=== PATIENT | male | born 1950 | race Caucasian/White ===

== ENCOUNTER → 2017-01-09 | Outpatient (CLI) | payer MEDICARE, BC, OTHER ==
[2017-01-09 14:38] LABS: MEAN CORPUSCULAR HEMOGLOBIN 26.9 pg (27.0-33.0); MEAN CORPUSCULAR HGB CONC 32.4 g/dl (32.0-36.5); MEAN CORPUSCULAR VOLUME 83.3 fl (80.0-96.0); RED CELL DISTRIBUTION WIDTH 14.7 % (11.5-14.5); WHITE BLOOD COUNT 6.2 K/mm3 (4.0-10.0)
[2017-01-09 14:40] LABS: ALBUMIN 3.7 GM/DL (3.2-5.2); ALBUMIN/GLOBULIN RATIO 1.06 (1.00-1.93); ALKALINE PHOSPHATASE 100 U/L (45-117); ALT/SGPT 20 U/L (12-78); ANION GAP 10 MEQ/L (8-16); AST/SGOT 26 U/L (15-37); BILIRUBIN,TOTAL 0.5 MG/DL (0.2-1.0); BLOOD UREA NITROGEN 10 MG/DL (7-18); CALCIUM LEVEL 7.5 MG/DL (8.8-10.2); CARBON DIOXIDE LEVEL 26 MEQ/L (21-32); CHLORIDE LEVEL 108 MEQ/L (98-107); CHOLESTEROL LEVEL 129 MG/DL (<200); CREATININE FOR GFR 0.84 MG/DL (0.70-1.30); GLOMERULAR FILTRATION RATE > 60.0 (>49); GLUCOSE, FASTING 102 MG/DL (80-110); POTASSIUM SERUM 3.5 MEQ/L (3.5-5.1); SODIUM LEVEL 144 MEQ/L (136-145); TOTAL PROTEIN 7.2 GM/DL (6.4-8.2); TRIGLYCERIDES LEVEL 122 MG/DL (<150)
== END ==
LOC: M WUC 08:58
PROVIDERS: ATTEND Physician Assistant
DX: I25.10 Atherosclerotic heart disease of native coronary artery without angina pectoris (principal); I10 Essential (primary) hypertension; E78.4 Other hyperlipidemia

== ENCOUNTER → 2017-01-25 | Outpatient (CLI) | payer MEDICARE, BC, OTHER ==
[2017-01-25 17:16] LABS: BASO # 0.1 K/mm3 (0.0-0.2); BASO % 0.8 % (0.0-1.0); EOS # 0.4 K/mm3 (0.0-0.50); EOS % 5.1 % (0.0-3.0); LARGE UNSTAINED CELL # 0.1 K/mm3 (0.0-0.4); LARGE UNSTAINED CELL % 1.4 % (0.0-4.0); LYMPH # 1.9 K/mm3 (1.5-4.5); LYMPH % 24.8 % (24.0-44.0); MEAN CORPUSCULAR HEMOGLOBIN 26.3 pg (27.0-33.0); MEAN CORPUSCULAR VOLUME 82.2 fl (80.0-96.0); MONO # 0.5 K/mm3 (0.0-0.8); NEUTROPHILS # 4.8 K/mm3 (1.8-7.7); NEUTROPHILS % 61.9 % (36.0-66.0); PLATELET COUNT, AUTOMATED 265 k/mm3 (150-450); RED CELL DISTRIBUTION WIDTH 14.4 % (11.5-14.5); WHITE BLOOD COUNT 7.8 K/mm3 (4.0-10.0)
[2017-01-25 17:40] LABS: PERCENT SATURATION 10.6 % (19.7-37.4)
== END ==
LOC: M WUC 14:27
PROVIDERS: ATTEND Physician Assistant
DX: D64.9 Anemia, unspecified (principal)

== ENCOUNTER → 2017-02-26 | Outpatient (CLI) | payer MEDICARE, BC, OTHER ==
[2017-02-26 13:47] LABS: MEAN CORPUSCULAR HEMOGLOBIN 27.6 pg (27.0-33.0); MEAN CORPUSCULAR HGB CONC 32.9 g/dl (32.0-36.5); MEAN CORPUSCULAR VOLUME 83.8 fl (80.0-96.0); RED CELL DISTRIBUTION WIDTH 16.7 % (11.5-14.5); WHITE BLOOD COUNT 6.6 K/mm3 (4.0-10.0)
[2017-02-26 13:51] LABS: PERCENT SATURATION 36.9 % (19.7-37.4)
== END ==
LOC: M WUC 09:59
PROVIDERS: ATTEND Physician Assistant
DX: D64.9 Anemia, unspecified (principal)

== ENCOUNTER → 2017-07-10 | Outpatient (CLI) | payer MEDICARE, BC, OTHER ==
[2017-07-10 12:12] LABS: MEAN CORPUSCULAR HEMOGLOBIN 30.6 pg (27.0-33.0); MEAN CORPUSCULAR HGB CONC 34.8 g/dl (32.0-36.5); WHITE BLOOD COUNT 7.2 K/mm3 (4.0-10.0)
[2017-07-10 12:18] LABS: ALBUMIN 3.5 GM/DL (3.2-5.2); ALKALINE PHOSPHATASE 97 U/L (45-117); ALT/SGPT 27 U/L (12-78); ANION GAP 10 MEQ/L (8-16); AST/SGOT 20 U/L (15-37); BILIRUBIN,TOTAL 0.5 MG/DL (0.2-1.0); BLOOD UREA NITROGEN 9 MG/DL (7-18); CALCIUM LEVEL 9.2 MG/DL (8.8-10.2); CARBON DIOXIDE LEVEL 25 MEQ/L (21-32); CHLORIDE LEVEL 103 MEQ/L (98-107); CHOLESTEROL LEVEL 163 MG/DL (<200); CREATININE FOR GFR 0.71 MG/DL (0.70-1.30); GLOMERULAR FILTRATION RATE > 60.0 (>49); GLUCOSE, FASTING 102 MG/DL (80-110); POTASSIUM SERUM 4.1 MEQ/L (3.5-5.1); SODIUM LEVEL 138 MEQ/L (136-145); TOTAL PROTEIN 7.4 GM/DL (6.4-8.2); TRIGLYCERIDES LEVEL 186 MG/DL (<150)
== END ==
LOC: M WUC 08:51
PROVIDERS: ATTEND Physician Assistant
DX: I25.10 Atherosclerotic heart disease of native coronary artery without angina pectoris (principal); I10 Essential (primary) hypertension; E78.4 Other hyperlipidemia

== ENCOUNTER → 2017-07-26 | Outpatient (CLI) | payer MEDICARE, BC, OTHER ==
--- NOTE | 2017-07-26 12:53 | REP ---
CAROTID ULTRASOUND: Real-time ultrasound evaluation and duplex Doppler interrogation of the extracranial carotid vasculature is performed. There is mild to moderate plaquing and narrowing in both carotid bulbs extending into the internal and external carotid arteries. Luminal narrowing is less than 50%. There is no evidence of hemodynamically significant stenosis of either internal carotid artery. Normal flow velocities are seen. The vertebral arteries demonstrate normal direction of flow. RIGHT LEFT Peak systolic velocity ICA 50 cm/s 55.5 cm/s End diastolic velocity ICA 16 cm/s 18 cm/s Peak systolic velocity CCA 77 cm/s 58.2 cm/s Peak systolic velocity ECA 104 cm/s 88.6 cm/s ICA/CCA ratio 0.65 0.95 IMPRESSION: Bilateral luminal narrowing of the internal carotid arteries less than 50%. No evidence of hemodynamically significant stenosis. Signed by Espinoza Tompkins MD 07/26/2017 12:45 P
== END ==
LOC: M RAD 09:40
PROVIDERS: ATTEND Physician Assistant
DX: R09.89 Other specified symptoms and signs involving the circulatory and respiratory systems (principal)

== ENCOUNTER → 2017-08-18 | Outpatient (CLI) | payer MEDICARE, BC, OTHER ==
[2017-08-18 13:15] LABS: ALBUMIN 3.8 GM/DL (3.2-5.2); ANION GAP 10 MEQ/L (8-16); BLOOD UREA NITROGEN 17 MG/DL (7-18); CALCIUM LEVEL 8.7 MG/DL (8.8-10.2); CARBON DIOXIDE LEVEL 25 MEQ/L (21-32); CHLORIDE LEVEL 94 MEQ/L (98-107); CREATININE FOR GFR 1.05 MG/DL (0.70-1.30); GLOMERULAR FILTRATION RATE > 60.0 (>49); GLUCOSE, FASTING 118 MG/DL (80-110); PHOSPHORUS LEVEL 3.3 MG/DL (2.5-4.9); POTASSIUM SERUM 4.2 MEQ/L (3.5-5.1); SODIUM LEVEL 129 MEQ/L (136-145)
== END ==
LOC: M WUC 10:09
PROVIDERS: ATTEND Physician Assistant
DX: I10 Essential (primary) hypertension (principal)

== ENCOUNTER → 2018-02-18 | Outpatient (CLI) | payer MEDICARE, BC, OTHER ==
[2018-02-18 12:16] LABS: ALBUMIN 4.1 GM/DL (3.2-5.2); ALBUMIN/GLOBULIN RATIO 0.95 (1.00-1.93); ALKALINE PHOSPHATASE 105 U/L (45-117); ALT/SGPT 27 U/L (12-78); ANION GAP 8 MEQ/L (8-16); AST/SGOT 27 U/L (7-37); BILIRUBIN,TOTAL 0.6 MG/DL (0.2-1.0); BLOOD UREA NITROGEN 12 MG/DL (7-18); CALCIUM LEVEL 9.3 MG/DL (8.8-10.2); CARBON DIOXIDE LEVEL 29 MEQ/L (21-32); CHLORIDE LEVEL 100 MEQ/L (98-107); CREATININE FOR GFR 0.98 MG/DL (0.70-1.30); GLOMERULAR FILTRATION RATE > 60.0 (>49); GLUCOSE, FASTING 96 MG/DL (70-100); POTASSIUM SERUM 3.9 MEQ/L (3.5-5.1); SODIUM LEVEL 137 MEQ/L (136-145); TOTAL PROTEIN 8.4 GM/DL (6.4-8.2)
== END ==
LOC: M WUC 09:37
DX: I10 Essential (primary) hypertension (principal)
CPT/HCPCS: 80053

== ENCOUNTER → 2018-03-09 | Outpatient (CLI) | payer MEDICARE, BC, OTHER ==
[2018-03-09 15:07] LABS: BASO # 0.1 10^3/uL (0.0-0.2); EOS # 0.2 10^3/uL (0.0-0.50); EOS % 3.4 % (0.0-3.0); HEMATOCRIT 39.7 % (42.0-52.0); HEMOGLOBIN 13.7 g/dl (13.5-17.5); IMMATURE GRANULOCYTE % 0.3 % (0-3.0); LYMPH # 1.6 10^3/uL (1.5-4.5); MEAN CORPUSCULAR HEMOGLOBIN 30.3 pg (27.0-33.0); MEAN CORPUSCULAR HGB CONC 34.5 g/dl (32.0-36.5); MEAN CORPUSCULAR VOLUME 87.8 fl (80.0-96.0); MONO # 0.6 10^3/uL (0.0-0.8); NEUTROPHILS # 4.5 10^3/uL (1.8-7.7); NEUTROPHILS % 64.3 % (36.0-66.0); PLATELET COUNT, AUTOMATED 234 10^3/uL (150-450); RED BLOOD COUNT 4.52 10^6/uL (4.30-6.10); RED CELL DISTRIBUTION WIDTH 12.5 % (11.5-14.5)
[2018-03-09 15:16] LABS: ANION GAP 11 MEQ/L (8-16); BLOOD UREA NITROGEN 12 MG/DL (7-18); CALCIUM LEVEL 8.1 MG/DL (8.8-10.2); CARBON DIOXIDE LEVEL 23 MEQ/L (21-32); CHLORIDE LEVEL 101 MEQ/L (98-107); CREATININE FOR GFR 1.03 MG/DL (0.70-1.30); GLOMERULAR FILTRATION RATE > 60.0 (>49); GLUCOSE, FASTING 158 MG/DL (70-100); SODIUM LEVEL 135 MEQ/L (136-145)
== END ==
LOC: M WUC 13:37
DX: I25.10 Atherosclerotic heart disease of native coronary artery without angina pectoris (principal)
CPT/HCPCS: 80048

== ENCOUNTER → 2018-08-30 | Outpatient (CLI) | payer MEDICARE, BC, OTHER ==
[2018-08-30 13:02] LABS: ALBUMIN 3.8 GM/DL (3.2-5.2); ALBUMIN/GLOBULIN RATIO 1.03 (1.00-1.93); ALKALINE PHOSPHATASE 108 U/L (45-117); ALT/SGPT 23 U/L (12-78); ANION GAP 11 MEQ/L (8-16); AST/SGOT 21 U/L (7-37); BILIRUBIN,TOTAL 0.5 MG/DL (0.2-1.0); BLOOD UREA NITROGEN 13 MG/DL (7-18); CALCIUM LEVEL 8.4 MG/DL (8.8-10.2); CARBON DIOXIDE LEVEL 26 MEQ/L (21-32); CHLORIDE LEVEL 101 MEQ/L (98-107); CHOLESTEROL LEVEL 168 MG/DL (<200); CREATININE FOR GFR 1.05 MG/DL (0.70-1.30); GLOMERULAR FILTRATION RATE > 60.0 (>42); GLUCOSE, FASTING 100 MG/DL (70-100); HDL CHOLESTEROL 32 MG/DL (>40); LDL CHOLESTEROL 92 MG/DL (<100); NON-HDL-C 136 MG/DL; POTASSIUM SERUM 4.1 MEQ/L (3.5-5.1); SODIUM LEVEL 138 MEQ/L (136-145); TOTAL PROTEIN 7.5 GM/DL (6.4-8.2); TRIGLYCERIDES LEVEL 220 MG/DL (<150)
== END ==
LOC: M WUC 08:22
DX: I25.10 Atherosclerotic heart disease of native coronary artery without angina pectoris (principal); I10 Essential (primary) hypertension; E78.2 Mixed hyperlipidemia
CPT/HCPCS: 80053

== ENCOUNTER → 2019-03-03 | Outpatient (CLI) | payer MEDICARE, BC, OTHER ==
[2019-03-03 09:49] LABS: ALBUMIN 3.6 GM/DL (3.2-5.2); ALT/SGPT 24 U/L (12-78); BILIRUBIN,TOTAL 0.6 MG/DL (0.2-1.0); BLOOD UREA NITROGEN 12 MG/DL (7-18); CALCIUM LEVEL 6.4 MG/DL (8.8-10.2); CARBON DIOXIDE LEVEL 25 MEQ/L (21-32); CHLORIDE LEVEL 99 MEQ/L (98-107); CHOLESTEROL LEVEL 149 MG/DL (<200); CHOLESTEROL RISK RATIO 4.966 (<5); CREATININE FOR GFR 0.87 MG/DL (0.70-1.30); GLOMERULAR FILTRATION RATE > 60.0 (>42); GLUCOSE, FASTING 93 MG/DL (70-100); HDL CHOLESTEROL 30 MG/DL (>40); LDL CHOLESTEROL 93 MG/DL (<100); NON-HDL-C 119 MG/DL; POTASSIUM SERUM 3.4 MEQ/L (3.5-5.1); SODIUM LEVEL 136 MEQ/L (136-145); TOTAL PROTEIN 7.5 GM/DL (6.4-8.2); TRIGLYCERIDES LEVEL 128 MG/DL (<150)
== END ==
LOC: M WUC 08:09
PROVIDERS: ATTEND Physician Assistant
DX: I25.10 Atherosclerotic heart disease of native coronary artery without angina pectoris (principal); I10 Essential (primary) hypertension; E78.2 Mixed hyperlipidemia

== ENCOUNTER → 2019-08-29 | Outpatient (CLI) | payer MEDICARE, BC, OTHER ==
[2019-08-29 10:10] LABS: ALBUMIN 3.5 GM/DL (3.2-5.2); ALT/SGPT 21 U/L (12-78); BILIRUBIN,TOTAL 0.7 MG/DL (0.2-1.0); BLOOD UREA NITROGEN 12 MG/DL (7-18); CALCIUM LEVEL 7.5 MG/DL (8.8-10.2); CARBON DIOXIDE LEVEL 27 MEQ/L (21-32); CHLORIDE LEVEL 101 MEQ/L (98-107); CHOLESTEROL LEVEL 132 MG/DL (<200); CHOLESTEROL RISK RATIO 4.258 (<5); CREATININE FOR GFR 0.98 MG/DL (0.70-1.30); GLOMERULAR FILTRATION RATE > 60.0 (>42); GLUCOSE, FASTING 96 MG/DL (70-100); HDL CHOLESTEROL 31 MG/DL (>40); LDL CHOLESTEROL 78 MG/DL (<100); NON-HDL-C 101 MG/DL; POTASSIUM SERUM 3.4 MEQ/L (3.5-5.1); SODIUM LEVEL 137 MEQ/L (136-145); TOTAL PROTEIN 7.8 GM/DL (6.4-8.2); TRIGLYCERIDES LEVEL 114 MG/DL (<150)
== END ==
LOC: M WUC 08:17
PROVIDERS: ATTEND Physician Assistant
DX: E78.2 Mixed hyperlipidemia (principal)

== ENCOUNTER → 2019-09-18 | Outpatient (CLI) | payer MEDICARE, BC, OTHER ==
--- NOTE | 2019-09-18 11:07 | REP ---
CAROTID ULTRASOUND: Real-time ultrasound evaluation and duplex Doppler interrogation of the extracranial carotid vasculature is performed. There is mild to moderate plaquing and narrowing in both carotid bulbs extending into the internal and external carotid arteries. Luminal narrowing is less than 50%. There is no evidence of hemodynamically significant stenosis of either internal carotid artery. Normal flow velocities are seen. The left vertebral artery demonstrates normal direction of flow. The right vertebral artery demonstrates bidirectional flow. This may indicate some degree of subclavian steal on the right. RIGHT LEFT Peak systolic velocity ICA 69.9 cm/s 81.9 cm/s End diastolic velocity ICA 14.1 cm/s 28 cm/s Peak systolic velocity CCA 50.7 cm/s 54.2 cm/s Peak systolic velocity ECA 101 cm/s 97.9 cm/s ICA/CCA ratio 1.38 1.51 IMPRESSION: Bilateral luminal narrowing of the internal carotid arteries less than 50%. No evidence of hemodynamically significant stenosis. The right vertebral artery demonstrates bidirectional flow. This may indicate some degree of subclavian steal on the right. Electronically Signed by Espinoza Tompkins MD 09/18/2019 10:59 A
== END ==
LOC: M RAD 09:42
PROVIDERS: ATTEND Physician Assistant
DX: I65.23 Occlusion and stenosis of bilateral carotid arteries (principal)

== ENCOUNTER → 2019-10-11 | Outpatient (CLI) | payer MEDICARE, BC, OTHER ==
[2019-10-11 13:06] LABS: BLOOD UREA NITROGEN 17 MG/DL (7-18); CALCIUM LEVEL 8.3 MG/DL (8.8-10.2); CARBON DIOXIDE LEVEL 22 MEQ/L (21-32); CHLORIDE LEVEL 99 MEQ/L (98-107); CREATININE FOR GFR 1.13 MG/DL (0.70-1.30); GLOMERULAR FILTRATION RATE > 60.0 (>42); GLUCOSE, FASTING 111 MG/DL (70-100); POTASSIUM SERUM 4.9 MEQ/L (3.5-5.1); SODIUM LEVEL 133 MEQ/L (136-145)
== END ==
LOC: M WUC 08:47
PROVIDERS: ATTEND Physician Assistant
DX: I10 Essential (primary) hypertension (principal)

== ENCOUNTER → 2020-02-13 | Outpatient (CLI) | payer MEDICARE, BC, OTHER ==
--- NOTE | 2020-02-13 15:03 | REP ---
BILATERAL LOWER EXTREMITY DUPLEX DOPPLER ARTERIAL ULTRASOUND: Real-time ultrasound evaluation and duplex Doppler interrogation of bilateral lower extremity arterial systems is performed. Peak systolic velocity of the distal abdominal aorta is 37 cm/s. There is high grade stenosis at the origin of the right common iliac artery with peak systolic velocity 467 cm/s and monophasic waveform. Distal to that, there are tardus parvus waveforms throughout the right lower extremity arterial system with some what low velocities and diffuse monophasic waveforms. Severe calcific plaquing is seen of the right common femoral artery and proximal superficial femoral artery with velocity drop suggesting 3 to 1 stenosis at the proximal right superficial femoral artery. There are relatively normal flow velocities throughout the left lower extremity arterial system with diffuse biphasic waveforms. There is severe calcific plaque in the left common femoral and superficial femoral arteries. There appears to be mild stenosis of the profunda artery. Right Peak Left Peak Systolic Velocity Systolic velocity Common femoral artery 95 cm/s 107 cm/s Profunda 24 cm/s 133 cm/s Proximal SFA 33 cm/s 181 cm/s Mid SFA 50 cm/s 108 cm/s Distal SFA 32 cm/s 164 cm/s Popliteal 34 cm/s 50 cm/s Proximal SHONA 29 cm/s 74 cm/s Tibial peroneal trunk 35 cm/s 130 cm/s Proximal MOLDED PARTS INSPECTOR 26 cm/s 54 cm/s Distal MOLDED PARTS INSPECTOR 21 cm/s 69 cm/s Distal SHONA 30 cm/s 46 cm/s Electronically Signed by Espinoza Tompkins MD 02/13/2020 03:34 P
== END ==
LOC: M RAD 12:52
PROVIDERS: ATTEND Physician Assistant
DX: I25.10 Atherosclerotic heart disease of native coronary artery without angina pectoris (principal)

== ENCOUNTER → 2020-04-01 | Outpatient (CLI) | payer MEDICARE, BC, OTHER ==
[~2020-04-01] MED LIST: ACETAMINOPHEN 325 MG TAB As Ordered ONE; ASPI81TA26 PO; BISO10TA14 PO; CHLO25TA PO; CLOP75TA2 PO; ISOVUE-300 61% 50ML VIAL As Ordered ONE; LIDOCAINE 1% MDV 20ML VIAL As Ordered ONE; MIDAZOLAM INJ 2MG/2ML VIAL (J2250 PER 1MG) As Ordered ONE; OMEP1CAP73 PO; POTA1TAB14 PO; RAMI1CAP26 PO; fentaNYL 100 MCG/2 ML INJECTION (J3010) As Ordered ONE
[2020-04-01 07:40] LABS: BLOOD UREA NITROGEN 14 MG/DL (7-18); CALCIUM LEVEL 6.7 MG/DL (8.8-10.2); CARBON DIOXIDE LEVEL 27 MEQ/L (21-32); CHLORIDE LEVEL 100 MEQ/L (98-107); GLOMERULAR FILTRATION RATE > 60.0 (>42); GLUCOSE, FASTING 94 MG/DL (70-100); POTASSIUM SERUM 3.7 MEQ/L (3.5-5.1); SODIUM LEVEL 135 MEQ/L (136-145)
--- NOTE | 2020-04-01 09:55 | ROOPDOC ---
[facility] Report Of Operation Report of Operation DATE OF PROCEDURE: 04/01/20 PREPROCEDURE DIAGNOSES: Atherosclerosis in the [place] arteries with lifestyle limiting claudication of the hips buttocks and calf POSTPROCEDURE DIAGNOSES: Same PROCEDURE: 1. Ultrasound-guided access left common femoral artery 2. Crossing near total occlusion and left iliac artery 3. Aortoiliofemoral arteriogram 4. Ultrasound-guided access right common femoral artery 5. Crossing near total occlusion right iliac artery 6. Predilation bilateral common and external iliac arteries with 5 x 100 [place] balloon and 8 x 100 [place] balloon 7. Right lower extremity arteriogram and runoff 8. Kissing stents bilateral common iliac arteries 10 x 57 express balloon expandable stent 9. Extension right and left common iliac artery stents with 9 x 37 express balloon expandable stent into the external iliac arteries 10. Completion arteriograms 11. Mynx closure bilateral common femoral artery SURGEON: Mayela Doe MD ANESTHESIA: Local anesthesia 20 mL lidocaine. Moderate intravenous conscious sedation was supervised by Dr. Doe. The patient was independently monitored by a registered nurse assigned to the Department of radiology using automated blood pressure, EKG, and pulse oximetry. The detailed sedation record is permanently stored in the hospital information system. The following is the brief sedation record: Start time 07:38, stop time 08:58, Versed 2 mg IV, fentanyl 100 g IV, heparin 5000 units IV. INDICATION FOR PROCEDURE: This is a very pleasant 69-year-old gentleman with atherosclerosis in the [place] arteries with worsening lifestyle limiting claudication of the bilateral lower extremities, worse on the right lower extremity. He has severe short distance cramping pain in the hips and buttocks, as well as later in the calves. His recovery time is long. Risks benefits and alternatives to an arteriogram with potential intervention were explained to the patient. He is agreeable to proceed. Informed consent was obtained. The patient was extensively counseled in clinic in again today about smoking cessation. It is imperative that he quit smoking for long-term success of any revascularization we are able to provide. He has cut back, and continues to try to quit. INTERPRETATION: 1. The distal aorta is heavily calcified and ectatic. There is mild dilation of the aorta 2 cm proximal to the bifurcation, likely from heavy iliac stenosis and calcification. Beyond that dilation, the very distal aorta above the bifurcation has significant plaque, heavily calcified. It is patent however. 2. The right proximal common iliac artery is heavily calcified and nearly occluded. It is somewhat aneurysmal distal to this, also heavily calcified and stenotic, but patent. Near the origin of the hypogastric and progression into the external iliac artery, there is more heavy stenosis plaque and near occlusio n. There is also near occlusion in the proximal external iliac artery. Distal to this, there is calcification and ectasia, but the rest of the external iliac artery is patent. 3. The right common femoral arteries heavily calcified is noted on ultrasound du ring access. Additionally, this is visible on arteriogram, but the vessel is patent and the calcification is not thus far flow-limiting. There is good flow into the profunda and the SFA which is widely patent until the mid SFA were there is a focal 30% stenosis and calcification throughout. Distal to this, there is a little bit of ectasia at Saqib's canal, but is not yet flow-limi ting. The popliteal arteries also calcified but widely patent. There is good two-vessel runoff through the anterior tibial and posterior tibial artery to the foot. The peroneal artery bifurcates in the upper calf and then has limited flow below the mid calf. This appears to be more congenital than stenotic. 4. The left common iliac arteries heavily calcified and has intermittent st enoses from 20-70%. There is a near occlusion at the distal common iliac artery proximal near the origin of the external iliac artery and hypogastric, and some ectasia and stenosis in the proximal external iliac artery as well. The distal left external iliac arteries calcified but patent. 5. After predilation of the iliacs bilaterally with a 5 x 100 and 8 x 100 [place] balloon, there was sufficient luminal improvement to allow passage of balloon expandable stents through the near occlusions. No extravasation or dissections were noted. 6. After stenting the bilateral iliac arteries with 10 x 57 kissing stents proximally and extension with 9 x 37 balloon expandable stent, there was widely patent flow through both iliac systems and dramatic improvement in pulses at the common femoral arteries bilaterally. No extravasation embolization or dissections were noted. 7. The left Mynx closure device was deployed without complication with good hemostasis, but the right Mynx closure device initially failed due to rupture of the balloon due to calcified plaque. A second mynx was successfully deployed with additional maneuvering with good hemostasis. REPORT OF OPERATION: The patient was brought to the angiographic suite in stable condition. His bilateral groins were prepped and draped in a sterile fashion. A timeout was performed. Sedation was administered without complication. Local anesthesia was administered to skin and subcutaneous tissue over the left common femoral artery. A microneedle was used to access the artery under ultrasound guidance. A wire was passed through this access under fluoroscopic guidance. It did take a moment to find a suitable lace for access due to heavy calcification in the common femoral artery, however ultrasound was helpful to find a soft spot for access. The needle was removed and a 4 [place] micro-sheath was placed and flushed with saline. A Glidewire and omni flush catheter were advanced. The wire was difficult to navigate through the near occlusion in the iliac vessel. Eventually, we were able to cross the near occlusion and advance the Omni Flush catheter over the wire into the distal aorta. Aortoiliofemoral arteriograms were performed. Please interpretation above. We spent about 10 minutes trying to go up and over the bifurcation and find a way through the near occlusion on the right to perform an arteriogram through the right side, but we were unsuccessful. This was aborted. We exchange the 4 [place] sheath for 7 [place] sheath over the wire and flushed the sheath with saline. We then turned our attention to the right groin and local anesthesia was administered to the skin and subcutaneous tissue over the right common femoral artery. A microneedle was used to access the artery under ultrasound guidance. Again, we struggled to find a soft spot in the artery due to heavy calcification and plaque, but we were eventually able to isolate and area over the femoral head in the common femoral artery under ultrasound that we could access safely. A wire was passed through this access and it was difficult to navigate the microwire due to heavy calcified plaque. We then placed a 4 [place] sheath and flushed the sheath with saline. The sheath was then exchanged over the wire for 7 [place] sheath and flushed with saline. A Glidewire was advanced through this access into the iliac vessels, but it would not pass due to the heavy near occlusive plaque. We selected a short glide cath and with a Glidewire, we carefully began the arduous task of crossing through the right iliac system. Eventually, we were able to han igate into the true lumen at the distal aorta. Contrast injection confirmed we were not in a dissection plane and we were able to spin our catheter freely. We then removed the catheter and over both wires we laced 5 x 100 [place] balloon's. 5000 units of heparin was given and allowed to circulate. The balloons were inflated to predilate the vessels due to concern for dislodgment of the stents if we tried to place them without predilation. We then did a second predilation with a 5 mm balloons, and then exchanged then for 8 mm x 100 balloons. 2 dilations sequentially were performed with these balloons as well. Before stenting the iliac vessels, we did perform a right lower extremity runoff through the right femoral sheath. Please interpretation above. Because I plan to place kissing stents, I wanted to make sure we did not need to do any up and over intervention on the right lower extremity from the left access, but the SFA lesion was mild, and there is more than sufficient runoff. I believe fixing the inflow will dramatically improve flow for the patient. We therefore elected not to intervene on the right lower extremity mild SFA stenosis. Over the wires, we advanced 10 x 57 express balloon expandable stents. These were simultaneously deployed as kissing stents into the distal aorta. We then extended both stents with 9 x 37 express balloon expandable stents with a 1 cm overlap. We postd ilated across the overlap and then arteriograms were performed, and showed excellent flow through both iliac systems. No dissections embolizations or extravasation were noted. The patient had bounding pulses in both common femoral arteries. A Mynx closure device was deployed in the left common femoral artery with good hemostasis and pressure was held for 15 minutes, and sterile dressings were applied. On the right, the first Mynx deployed was unsuccessful due to calcified plaque rupturing the balloon. We then utilized a second Mynx, but I did not fully inflate the balloon until we were closer to the arteriotomy to avoid a similar fate. The balloon was then inflated closer to the arteriotomy and retracted in the normal fashion, and the sheath was carefully checked to make sure there was no flow once the balloon without the arteriotomy. We then finished applying the Mynx with good hemostasis and pressure was held for 15 minutes and sterile dressings were applied. The patient was then taken to recovery in stable condition with good hemostasis in both groins. The patient tolerated the procedure and the sedation well. ESTIMATED BLOOD LOSS: Approximately 5 mL. COMPLICATIONS: None. PLAN: We will see the patient back in a week to check his bilateral groin access sites and his perfusion. We will start the patient on Plavix and he will need to take this for 60 days post stenting. We will continue to encourage smoking cessation. No heavy lifting greater than 5 pounds or strenuous exercise for 48 hours. We will monitor the patient for hours postprocedure and then he will be discharged home. MAYELA DOE MD Apr 01, 2020 09:55
[2020-04-01 12:28] VITALS: BP 172/94
== END ==
LOC: M IRPRO 06:36
PROVIDERS: ATTEND Surgery Vascular Surgery
DX: I70.213 Atherosclerosis of native arteries of extremities with intermittent claudication, bilateral legs (principal); I70.92 Chronic total occlusion of artery of the extremities
CPT/HCPCS: 37221; 37223; 75630; 80048; 99152; 99153; C1725; C1760; C1769; C1887; C1894; J1644; J2250; J3010; Q9967

== ENCOUNTER 2020-04-06 05:27 | Emergency (ER) | payer MEDICARE, BC, OTHER ==
[~2020-04-06] VITALS: Ht 188 cm; Wt 87.3 kg
[2020-04-06 05:27] VITALS: BP 178/84
[~2020-04-06 05:27] MED LIST changes: -ACETAMINOPHEN 325 MG TAB As Ordered ONE; -ISOVUE-300 61% 50ML VIAL As Ordered ONE; -LIDOCAINE 1% MDV 20ML VIAL As Ordered ONE; -MIDAZOLAM INJ 2MG/2ML VIAL (J2250 PER 1MG) As Ordered ONE; -fentaNYL 100 MCG/2 ML INJECTION (J3010) As Ordered ONE
[2020-04-06] MEDS ORDERED: PRAV20TA2 (05:38)
== END 2020-04-06 06:30 | disposition home or self-care (01) ==
LOC: M ED 05:27
DX: I97.638 Postprocedural hematoma of a circulatory system organ or structure following other circulatory system procedure (principal); F17.200 Nicotine dependence, unspecified, uncomplicated; Z95.1 Presence of aortocoronary bypass graft; I10 Essential (primary) hypertension; Z79.02 Long term (current) use of antithrombotics/antiplatelets; Z79.899 Other long term (current) drug therapy; Z88.0 Allergy status to penicillin; Y83.8 Other surgical procedures as the cause of abnormal reaction of the patient, or of later complication, without mention of misadventure at the time of the procedure

== ENCOUNTER → 2020-04-07 | Outpatient (CLI) | payer MEDICARE, BC, OTHER ==
[~2020-04-07] MED LIST changes: +PRAV20TA2
[2020-04-07 18:08] LABS: BLOOD UREA NITROGEN 10 MG/DL (7-18); CALCIUM LEVEL 6.5 MG/DL (8.8-10.2); CARBON DIOXIDE LEVEL 26 MEQ/L (21-32); CHLORIDE LEVEL 97 MEQ/L (98-107); CREATININE FOR GFR 0.99 MG/DL (0.70-1.30); GLOMERULAR FILTRATION RATE > 60.0 (>42); GLUCOSE, FASTING 118 MG/DL (70-100); SODIUM LEVEL 136 MEQ/L (136-145)
== END ==
LOC: M WUC 08:49
PROVIDERS: ATTEND Physician Assistant
DX: I10 Essential (primary) hypertension (principal)

== ENCOUNTER → 2020-05-13 | Outpatient (CLI) | payer MEDICARE, BC, OTHER ==
--- NOTE | 2020-05-13 10:52 | REP ---
REASON: Bilateral iliac stents. The ankle brachial index on the right is 0.91. COPPER ETCHER 163-200 cm/s Triphasic Profunda 112 cm/s Triphasic SFA proximal 136 cm/s Biphasic SFA mid 82 cm/s Biphasic SFA distal 85 cm/s Biphasic Popliteal 87 cm/s Biphasic SHONA proximal 71 cm/s Biphasic Tibioperoneal Trunk 65 cm/s Biphasic EDUCATIONAL SPECIALIST proximal 80 cm/s Triphasic EDUCATIONAL SPECIALIST distal 79 cm/s Biphasic SHONA distal 79 cm/s Biphasic to triphasic. The ankle brachial index is 0.61. COPPER ETCHER 105 cm/s Biphasic Profunda 265-40 cm/s Biphasic SFA proximal 155 cm/s Biphasic SFA mid 95 cm/s Biphasic SFA distal 125-72 cm/s Biphasic Popliteal 44 cm/s Biphasic SHONA proximal 96 cm/s Biphasic Tibioperoneal Trunk 126 cm/s Biphasic EDUCATIONAL SPECIALIST proximal 32 cm/s Biphasic EDUCATIONAL SPECIALIST distal 12 cm/s Monophasic SHONA distal 74 cm/s Biphasic There is evidence of severe plaque formation in the common femoral artery on the right with a moderate stenosis. Plaque is seen throughout the superficial femoral artery without a significant stenosis. All waveforms appear to have improved on the right compared to the prior exam. On the left, there is severe plaque formation of the common femoral artery into the profunda with significant stenosis. Plaque is seen throughout the SFA with evidence of reduction of the diameter. Proximal to the iliac stents, the peak systolic velocity and the distal aorta is 43 cm/s and biphasic. Right common iliac artery within the stent 71 cm/s monophasic and on the left 70 cm/s monophasic. Distal to the stent in the right external iliac artery peak systolic velocity 118 cm/s with biphasic waveform and on the left 151 cm/s and monophasic as well. No evidence of stenosis was seen within the stents at this time. Electronically Signed by Kole Anthony DO 05/13/2020 02:25 P
== END ==
LOC: M RAD 07:05
PROVIDERS: ATTEND Physician Assistant
DX: I70.213 Atherosclerosis of native arteries of extremities with intermittent claudication, bilateral legs (principal); F17.210 Nicotine dependence, cigarettes, uncomplicated; R10.2 Pelvic and perineal pain

== ENCOUNTER → 2020-06-25 | Outpatient (CLI) | payer MEDICARE, BC, OTHER ==
[2020-06-25 16:19] LABS: HEMATOCRIT 37.6 % (42.0-52.0); MEAN CORPUSCULAR HEMOGLOBIN 27.5 pg (27.0-33.0); MEAN CORPUSCULAR HGB CONC 31.9 g/dl (32.0-36.5); MEAN CORPUSCULAR VOLUME 86.2 fl (80.0-96.0); PLATELET COUNT, AUTOMATED 215 10^3/uL (150-450); RED BLOOD COUNT 4.36 10^6/uL (4.30-6.10)
== END ==
LOC: M WUC 09:28
PROVIDERS: ATTEND Physician Assistant
DX: I48.3 Typical atrial flutter (principal)

== ENCOUNTER → 2020-10-02 | Outpatient (CLI) | payer MEDICARE, OTHER, BC ==
[2020-10-02 11:33] LABS: ALBUMIN 3.4 GM/DL (3.2-5.2); ALT/SGPT 18 U/L (12-78); BILIRUBIN,TOTAL 0.7 MG/DL (0.2-1.0); BLOOD UREA NITROGEN 16 MG/DL (7-18); CALCIUM LEVEL 8.3 MG/DL (8.8-10.2); CARBON DIOXIDE LEVEL 26 MEQ/L (21-32); CHLORIDE LEVEL 104 MEQ/L (98-107); CHOLESTEROL LEVEL 145 MG/DL (<200); CREATININE FOR GFR 0.85 MG/DL (0.70-1.30); GLOMERULAR FILTRATION RATE > 60.0 (>42); GLUCOSE, FASTING 78 MG/DL (70-100); HDL CHOLESTEROL 29 MG/DL (>40); LDL CHOLESTEROL 84 MG/DL (<100); NON-HDL-C 116 MG/DL; POTASSIUM SERUM 3.9 MEQ/L (3.5-5.1); SODIUM LEVEL 137 MEQ/L (136-145); TOTAL PROTEIN 7.4 GM/DL (6.4-8.2); TRIGLYCERIDES LEVEL 161 MG/DL (<150)
== END ==
LOC: M WUC 08:25
PROVIDERS: ATTEND Physician Assistant
DX: E78.2 Mixed hyperlipidemia (principal)

== ENCOUNTER → 2020-11-08 | Outpatient (CLI) | payer MEDICARE, BC, OTHER ==
--- NOTE | 2020-11-08 12:50 | REP ---
INDICATION: ATHEROSCLEROSIS, VASCULAR IMPLANT/GRAFTS COMPARISON: 05/13/2020 TECHNIQUE: Real time lopez scale and color Doppler evaluation of the bilateral lower extremity arterial vasculature using linear high frequency transducer. FINDINGS: Evidence for bilateral common iliac artery stents are noted with findings and velocities similar to prior examination. Distal aortic velocity measures 43 cm/sec. Right common iliac artery is biphasic with a velocity of 78 cm/sec Right external iliac artery is biphasic with a velocity of 156 cm/sec Left common iliac artery is biphasic with a velocity of 81 cm/sec Left external iliac artery is biphasic with a velocity of 123 cm/sec. The bilateral lower extremities demonstrate severe partially calcified atheromatous plaquing similar to prior examination with visible areas of luminal narrowing noted bilaterally and generalized biphasic wave patterns throughout the lower extremities. Right JOSEFINA: 0.73 Left JOSEFINA: 0.79 Peak systolic velocities (cm/sec) Common femoral artery: Right 116-189; Left 102 Profunda femoris: Right 153; Left 90 SFA (proximal): Right 129-186; Left 110 SFA (mid): Right 69; Left 98 SFA (distal): Right 100-125; Left 107 Popliteal artery: Right 100; Left 60-90 SHONA (prox.): Right 67; Left 40 Tibioperoneal trunk: Right 55; Left 108 HELMET HAT BRIM CUTTER (prox.): Right 46; Left 61 HELMET HAT BRIM CUTTER (distal): Right 21; Left 29 SHONA (distal): Right 52; Left 53 IMPRESSION: 1. Relatively stable appearance to the bilateral iliac arteries as compared with prior examinations. 2. Advanced atherosclerotic changes to the bilateral lower extremities with visible areas of narrowing. Findings are relatively similar to prior examination. No focal area of occlusion identified. <Electronically signed by Tian Cutler > 11/08/20 [id number]
== END ==
LOC: M RAD 10:16
PROVIDERS: ATTEND Physician Assistant
DX: I70.213 Atherosclerosis of native arteries of extremities with intermittent claudication, bilateral legs (principal); Z95.828 Presence of other vascular implants and grafts

== ENCOUNTER → 2020-11-19 | Outpatient (CLI) | payer MEDICARE, BC, OTHER ==
[~2020-11-19] MED LIST changes: +AMLO1TAB24; +ASPI-161 PO; +AZEL1SPR3 NARES; +FAMO40TA3 PO; +MAGN64TASA PO; +POTA20TA6; -PRAV20TA2; +PRAV20TA2 PO; +SPIR-10 PO; +TORS10TA3 PO; +XARE20TA PO
--- NOTE | 2020-11-19 11:07 | REP ---
INDICATION: HEART FAILURE. COMPARISON: Comparison chest x-ray June 21, 2015. TECHNIQUE: Two views.. FINDINGS: Patient is status post prior median sternotomy. The lungs overall are slightly hyperinflated as before. Borderline heart size is observed.. Cardiothoracic ratio is 47.8%. The aorta is tortuous and somewhat calcific. Pulmonary vasculature is not increased. There is blunting of 1 of the posterior pleural angles on the lateral radiograph, probably the left. Interstitial markings are prominent in the bases consistent with interstitial fibrosis. This is a chronic finding. IMPRESSION: Borderline heart size. Prior sternotomy. Diffuse mild interstitial fibrosis pattern. Slight blunting of what appears to be the left posterior pleural angle.. <Electronically signed by Mao Medina > 11/19/20 [id number]
[2020-11-19 16:00] LABS: HEMATOCRIT 32.5 % (42.0-52.0); HEMOGLOBIN 10.1 g/dl (13.5-17.5); MEAN CORPUSCULAR HEMOGLOBIN 26.2 pg (27.0-33.0); MEAN CORPUSCULAR HGB CONC 31.1 g/dl (32.0-36.5); MEAN CORPUSCULAR VOLUME 84.4 fl (80.0-96.0); PLATELET COUNT, AUTOMATED 205 10^3/uL (150-450); RED BLOOD COUNT 3.85 10^6/uL (4.30-6.10); WHITE BLOOD COUNT 7.9 10^3/uL (4.0-10.0)
[2020-11-19 17:13] LABS: BLOOD UREA NITROGEN 21 MG/DL (7-18); CALCIUM LEVEL 7.6 MG/DL (8.8-10.2); CARBON DIOXIDE LEVEL 22 MEQ/L (21-32); CHLORIDE LEVEL 102 MEQ/L (98-107); CREATININE FOR GFR 1.11 MG/DL (0.70-1.30); GLOMERULAR FILTRATION RATE > 60.0 (>42); GLUCOSE, FASTING 124 MG/DL (70-100); MAGNESIUM LEVEL 0.6 MG/DL (1.8-2.4); NT-PRO BNP 4825 PG/ML (<125); POTASSIUM SERUM 3.6 MEQ/L (3.5-5.1); SODIUM LEVEL 134 MEQ/L (136-145)
== END ==
LOC: M WUC 10:32
PROVIDERS: ATTEND Physician Assistant
DX: I50.9 Heart failure, unspecified (principal); Z98.890 Other specified postprocedural states

== ENCOUNTER 2020-12-03 14:55 | Inpatient (IN) | payer MEDICARE, BC, OTHER ==
[~2020-12-03] VITALS: Ht 188 cm; Wt 82.4 kg
[~2020-12-03 14:55] MED LIST changes: -AMLO1TAB24; -ASPI-161 PO; -AZEL1SPR3 NARES; -FAMO40TA3 PO; -MAGN64TASA PO; -POTA20TA6; -SPIR-10 PO; -TORS10TA3 PO; -XARE20TA PO
--- OUTSIDE RECORDS SUMMARY | 2020-12-03 15:07 | CCD | Continuity of Care Document ---
Author Author [facility] [place] Organization Unknown Address [address] [place] [address] [place] [address] Phone [phone] Care Team Providers [employer] Name Role Phone Florinda Valencia DO AUTM [phone] [employer] AUTM [phone] Problems Description No Information Available Social History Type Date Description Comments Sex Unknown ETOH Use Occasionally consumes alcohol Tobacco Use Start: Unknown Patient is a current smoker, smo kes every day 1/2 ppd Smoking Status Reviewed: 11/09/20 Patient is a current smoker, smokes every day 1/2 ppd Allergies, Adverse Reactions, Alerts Active Allergies Reaction Severity Comments Date Penicillin Contact dermatitis 8 Medications Active Medications SIG Qnty Indications Ordering Provide r Date Azelastine HCL (Nasal) 137mcg/[place] Solution 2 sprays each nostril twice a day 30ml J31.0 Faisal Majano JR., M.D. 11/09/2020 Aspir-[address] ever y day Unknown Omeprazole 20mg Capsules DR Unknown Bisoprolol Fumarate 5mg Tablets every day Unknown Ramipril 10mg Capsules every day Unknown Rosuvastatin Calcium 5mg Tablets every day Unknown Chlorthalidone 25mg Tablets 1/2 by mouth every day Unknown Pravastatin Sodium 20mg Tablets qd Unknown Potassium Chloride Brenda ER 20Meq Tablets ER qd Unknown Amlodipine Besylate 5mg Tablets qd Unknown Xarelto 20mg Tablets 1 by mouth every day Unknown Immunizations CPT Code Status Date Vaccine Lot # [id number] Given 04/24/2019 Tdap/Tetanus, Di phth Toxoids/Acellular Pertussis Vac 7Yr Or > [id number] Vital Signs Date Vital Result Comment 11/09/2020 11:28am BP Systolic 165 mmHg BP Diastolic 77 mmHg Heart Rate 78 /min Respiratory Rate 18 /min O2 % BldC Oximetry 95 % Body Temperature 96.2 F Weight 180.00 lb Pain Level 6 04/24/2019 10:12am BP Systolic 164 mmHg BP Diastolic 76 mmHg Heart Rate 67 /min O2 % BldC Oximetry 96 % Body Temperature 97.5 F Weight 200.00 lb Height 75 inches 6'3" BMI (Body Mass Index) 25.0 kg/m2 Pain Level 3 Results Description No Information Available Procedures Description No Information Available Medical Devices Description No Information Available Encounters Type Date Location Provider Dx Diagnosis Office Visit 11/09/2020 10:30a Main Office [facility] J31.0 Chronic rhinitis J06.9 Acute upper respiratory infe ction, unspecified Z20.828 Contact w and exposure to ot h viral communicable diseases Assessments Date Code Description Provider 11/09/2020 J31.0 Chronic rhinitis [facility] 11/09/2020 J06.9 Acute upper respiratory infectio n, unspecified [facility] 11/09/2020 Z20.828 Contact with and (hernandez spected) exposure to other viral communicable diseases [facility] Plan of Treatment 11/09/2020 - [facility]* J31.0 Chronic rhinitis* New Medication:* Azelastine HCL (Nasal) 137 mcg/[place] - 2 sprays each nostril twice a day * J06.9 Acute upper respiratory infection, unspecified* Comments:* supportive: vit c, rest, fluids, steam, gargles if sore throat, RTC or seek other medical attention if worsening or just not better within 1 week * Z20.828 Contact with and (suspected) exposure to other viral communicable diseases* Comments:* POC rapid COVID neg today Functional Status Description No Information Available Mental Status Description No Information Available Referrals Description No Information Available
--- OUTSIDE RECORDS SUMMARY | 2020-12-03 15:07 | CCD | Continuity of Care Document ---
Author Author Rogers KIRAN GA Organization Unknown Address [address] [facility] [facility] [address], [address] [place] [address] Phone [phone] Care Team Providers Care Grizzly Worker Name Role Phone Noam Lagos AUTM [phone] Problems Active Problems Provider Date Tobacco user Anthony Gonzalez MD Onset: 07/04/2015 Pulmonary emphysema Anthony Gnozalez MD Onset: 07/04/2015 Social History Type Date Description Comments Sex Unknown ETOH Use 4 A Day Recreational Drug Use Denies Drug Use Tobacco Use Start: Unknown Patient is a current smoker, smo kes every day 1/2 PPD FOR 30 YEARS Smoking Status Reviewed: 11/20/20 Patient is a current smoker, smokes every day 1/2 PPD FOR 30 YEARS Allergies, Adverse Reactions, Alerts Active Allergies Reaction Severity Comments Date Penicillin Hives 07/04/2015 Medications Active Medications SIG Qnty Indications Ordering Provide r Date Ramipril 10mg Capsules 1 tab po daily Unknown Aspir-[address] 1 by mouth every day Unknown Bisoprolol Fumarate 10mg Tablets 1 qd Unknown Xarelto 20mg Tablets 1 qd Unknown Torsemide 10mg Tablets 2 qd Unknown Mag64 64mg Tablets DR 2 tablest by mouth 2 x day. Unknown Spironolactone 25mg Tablets 1/2 tab qd Unknown Pravastatin Sodium 20mg Tablets 1 qd Unknown Famotidine 40mg Tablets 1 by mouth a day Unknown Immunizations CPT Code Status Date Vaccine Lot # [id number] Given 08/15/2015 Influenza Virus Split 3 Yrs And Above For Intramuscular Use Vital Signs Date Vital Result Comment 11/20/2020 10:48am BP Systolic 98 mmHg BP Diastolic 46 mmHg Height 74 inches 6'2" Weight 193.50 lb BMI (Body Mass Index) 24.8 kg/m2 [place] Body Weight 190 lb Weight 87.772 kg BSA (Body Surface Area) 2.14 m2 05/27/2020 3:03pm BP Systolic 122 mmHg BP Diastolic 70 mmHg Height 74 inches 6'2" Weight 186.25 lb BMI (Body Mass Index) 23.9 kg/m2 [place] Body Weight 190 lb Weight 84.483 kg BSA (Body Surface Area) 2.11 m2 Results Test Acquired Date Facility Test Result H/L Range Note Comprehensive Metabolic Profil 10/02/2020 [facility] Main Lab [address] [place] [address] [phone] Glucose, Fasting 78 mg/dL Normal 70-100 Blood Urea Nitrogen 16 mg/dL Normal 7-18 Creatinine For GFR 0.85 mg/dL Normal 0.70-1.30 Glomerular Filtration Rate > 60.0 Normal >42 1 Sodium Level 137 mEq/L Normal 136-145 Potassium Serum 3.9 mEq/L Normal 3.5-5.1 Chloride Level 104 mEq/L Normal 98-107 Carbon Dioxide Level 26 mEq/L Normal 21-32 Anion Gap 7 mEq/L Low 8-16 Calcium Level 8.3 mg/dL Low 8.8-10.2 Ast/Sgot 28 U/L Normal 7-37 Alt/SGPT 18 U/L Normal 12-78 Alkaline Phosphatase 196 U/L High 45-117 Bilirubin,Total 0.7 mg/dL Normal 0.2-1.0 Total Protein 7.4 GM/DL Normal 6.4-8.2 Albumin 3.4 GM/DL Normal 3.2-5.2 Albumin/Globulin Ratio 0.9 Normal Lipid Panel 10/02/2020 [facility] [address] [place] [address] [phone] Triglycerides Level 161 mg/dL High <150 Cholesterol Level 145 mg/dL Normal <200 HDL Cholesterol 29 mg/dL Low >40 LDL Cholesterol 84 mg/dL Normal <100 Non-HDL-C 116 mg/dL Normal Cholesterol Risk Ratio 5.000 Normal <5 1 Units are mL/min/1.73 m2 Chronic Kidney Disease Staging per NKF: Stage I & II GFR >=60 Normal to Mildly Decreased Stage III GFR 30-59 Moderately Decreased Stage IV GFR 15-29 Severely Decreased Stage V GFR <15 Very Little GFR Left ESRD GFR <15 on FLIGHT AGENT Procedures Description No Information Available Medical Devices Description No Information Available Encounters Type Date Location Provider Dx Diagnosis Office Visit 05/27/2020 10:15a [facility] R[place] Mendoza I70.213 Athscl [place] arteries of extrm w intrmt toan, bi legs Z95.828 Presence of other vascular i mplants and grafts F17.210 Nicotine dependence, cigaret zee, uncomplicated Assessments Date Code Description Provider 05/27/2020 I70.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
--- OUTSIDE RECORDS SUMMARY | 2020-12-03 15:07 | CCD | Continuity of Care Document ---
Author Author Rogers ESTRADA PA-C Organization Unknown Address [address] [place] [address], [facility] [place] [address] Phone [phone] Care Team Providers Care Industrial Spray Painter Name Role Phone Jaspal Jones DO AUTM [phone] Ellen Doe MD AUTM [phone] Noam Gilbert AUTM [phone] Problems Active Problems Provider Date Coronary arteriosclerosis Rashmi Estrada PA-C Onset: 2011 Old myocardial infarction Rashmi Estrada PA-C Onset: 2011 Patient post percutaneous transluminal coronary angiop lasty Rashmi Estrada PA-C Onset: 01/22/2012 History of coronary artery bypass grafting Rashmi Estrada P A-C Onset: 12/25/2015 Essential hypertension Rashmi Estrada, PA-C Onset: 6 Mitral valve disorder Rashmi Estrada PA-C Onset: 01/22/2012 Aortic valve disorder Rashmi Estrada PA-C Onset: 06/21/2015 Electrocardiogram abnormal Rashmi Estrada PA-C Onset: 01/21 Mixed hyperlipidemia Rashmi Estrada, PA-C Onset: 01/15/2017 Cigarette smoker Rashmi Estrada PA-C Onset: 01/15/2017 Carotid artery occlusion Rashmi Estrada PA-C Onset: 018 Dietary management surveillance Rashmi Estrada PA-C Onset: 03/02/2018 Peripheral vascular disease Rashmi Estrada PA-C Onset: 03/2018 Social History Type Date Description Comments Sex Unknown Tobacco Use Start: Unknown Current Cigarette Smoker 1 1/2 P acks Daily hx of 30yrs. currently 1/2ppd ETOH Use Consumes Beer 10 weekly Tobacco Use Start: Unknown Patient is a current smoker, smo kes every day started at age 16, currently 1/2 ppd Smoking Status Reviewed: 11/19/20 Patient is a current smoker, smokes every day started at age 16, currently 1/2 ppd Exercise Type/Frequency Walks sporadically Exercise Type/Frequency Does yardwork twice a we ek Exercise Type/Frequency Exercises daily maintain ing [employer] Exercise Type/Frequency Does yardwork sporadical ly snow shoveling as needed Exercise Limitations None Allergies, Adverse Reactions, Alerts Active Allergies Reaction Severity Comments Date Penicillin hives 12/03/2006 Fenofibrate muscle cramps and severe mus stuart pain 02/08/2013 Lipitor leg cramps 09/11/2013 Simvastatin myalgias and diarrhea 2016 Rosuvastatin Muscle/leg pains 03/09/2019 Medications Active Medications SIG Qnty Indications Ordering Provide r Date Torsemide 10mg Tablets 2 by mouth every day 180tabs I50.9 Johan Gonzales MD 11/19/2020 Spironolactone 25mg Tablets 1/2 by mouth every day 45tabs I50.9 Johan Gonzales MD 11/19/2020 Xarelto 20mg Tablets 1 by mouth every day with evening meal 90tabs I48.3 Johan Gonzales MD 10/08/2020 Bisoprolol Fumarate 10mg Tablets 1 by mouth every day 90tabs I10 Johan Gonzales MD 09/06/2019 I25.10 Pravastatin Sodium 20mg Tablets 1 by mouth every night at bedtime 90tabs E78.2 Johan Gonzales MD 2018 I25.10 Tylenol 8 Hour 650mg Tablets ER take as directed I10 Johan Gonzales MD 03/02/[address] 1 by mouth every day 90caps Johan Gonzales MD 06/15/2014 Nitrostat 0.4mg Tablets Sub 1 sl every 5min x3 as needed for chest pain 25tabs I25.10 Johan Gonzales MD 08/10/2013 Altace 10mg Capsules 1 by mouth daily 90caps I10 Jaspal Dyer MD 07/25/2012 I25.10 Aspir-[address] 1 PO daily Johan Gonzales MD 03/13/2008 History Medications Amlodipine Besylate 5mg Tablets 1 by mouth every day 90tabs I10 Johan Gonzales MD 10/08/2020 - 11/19/2020 I50.9 Eliquis 5mg Tablets 1 by mouth twice a day 180tabs I48.3 Johan Gonzales MD 05/29/2020 - 10/08/2020 Immunizations Description No Information Available Vital Signs Date Vital Result Comment 11/19/2020 7:38am Weight 186.00 lb Home Weight 185lb Home weight Height 74 inches 6'2" BMI (Body Mass Index) 23.9 kg/m2 Heart Rate 84 /min Irregular Respiratory Rate 16 /min BP Systolic Right Arm 142 mmHg sitting, regular c uff BP Diastolic Right Arm 64 mmHg sitting, regular cuff 10/08/2020 7:46am Weight 183.00 lb Home Weight 180lb Home weight Height 74 inches 6'2" BMI (Body Mass Index) 23.5 kg/m2 Heart Rate 88 /min Regular Respiratory Rate 16 /min BP Systolic Right Arm 156 mmHg sitting, regular c uff BP Diastolic Right Arm 78 mmHg sitting, regular cuff BP Systolic Left Arm 156 mmHg sitting BP Diastolic Left Arm 80 mmHg sitting Results Test Acquired Date Facility Test Result H/L Range Note Comprehensive Metabolic Profil 10/02/2020 [facility] [phone] Glucose, Fasting 78 mg/dL Normal 70-100 Blood [...] Albumin/Globulin Ratio 0.9 Normal Lipid Panel 10/02/2020 [facility] [phone] Triglycerides Level 161 mg/dL High <150 Cholesterol Level 145 mg/dL Normal <200 HDL Cholesterol 29 mg/dL Low >40 LDL Cholesterol 84 mg/dL Normal <100 Non-HDL-C 116 mg/dL Normal Cholesterol Risk Ratio 5.000 Normal <5 Complete Blood Count 06/25/2020 [facility] [phone] White Blood Count 7.0 10 Normal 4.0-10.0 Red Blood Count 4.36 10 Normal 4.30-6.10 Hemoglobin 12.0 g/dL Low 13.5-17.5 Hematocrit 37.6 % Low 42.0-52.0 Mean Corpuscular Volume 86.2 fl Normal 80.0-96.0 Mean Corpuscular Hemoglobin 27.5 pg Normal 27.0-33.0 Mean Corpuscular HGB Conc 31.9 g/dL Low 32.0-36.5 Red Cell Distribution Width 15.7 % High 11.5-14.5 Platelet Count, Automated 215 10 Normal 150-450 Nucleated Red Blood Cell % 0.0 % Normal 0-0 1 Units are mL/min/1.73 m2 Chronic Kidney Disease Staging per NKF: Stage I & II GFR >=60 Normal to Mildly Decreased Stage III GFR 30-59 Moderately Decreased Stage IV GFR 15-29 Severely Decreased Stage V GFR <15 Very Little GFR Left ESRD GFR <15 on ANTENNA DESIGN ENGINEER Procedures Date Code Description Status 10/08/2020 36130 ECG 12-Lead Completed 05/28/2020 11620 Treadmill/Pharmacological [place] ring Completed 05/28/2020 59189 Myocardial Perfusion Spect Multi ple Completed Medical Devices Description No Information Available Encounters Type Date Location Provider Dx Diagnosis Office Visit 11/19/2020 7:45a Main Office Rashmi Estrada PA-C I50.9 Heart failure, unspecified Office Visit 10/08/2020 7:45a Main Office Rashmi Estrada PA-C I25.1 0 Athscl heart disease of [place] coronary artery w/o ang pctrs I25.2 Old myocardial infarction Z95.5 Presence of coronary angiopl asty implant and graft Z95.1 Presence of aortocoronary by pass graft I48.3 Typical atrial flutter I10 Essential (primary) hyperten dimas I34.0 Nonrheumatic mitral (valve) insufficiency I35.8 Other nonrheumatic aortic va lve disorders R94.31 Abnormal electrocardiogram [ ECG] [EKG] E78.2 Mixed hyperlipidemia I65.23 Occlusion and stenosis of bi lateral carotid arteries F17.218 Nicotine dependence, cigaret zee, w oth disorders Assessments Date Code Description Provider 11/19/2020 I50.9 Heart failure, unspecified Rashmi Phuc Campbellw, PA-C 10/08/2020 I25.10 Atherosclerotic heart disease of [place] coronary artery with Rashmi Campbellw, PA-C 10/08/2020 I25.2 Old myocardial infarction Rashmi Estrada, PA-C 10/08/2020 Z95.5 Presence of coronary angioplasty implant and graft Rashmi Estrada, PA-C 10/08/2020 Z95.1 Presence of aortocoronary bypass graft Rashmi Estrada, PA-C 10/08/2020 I48.3 Typical atrial flutter Rashmi Phuc [place] melanymaximino, PA-C 10/08/2020 I10 Essential (primary) hypertension Rashmi Campbellw, PA-C 10/08/2020 I34.0 Nonrheumatic mitral (valve) insu fficiency Rashmi Campbellw, PA-C 10/08/2020 I35.8 Other nonrheumatic aortic valve disorders Rashmi Campbellw, PA-C 10/08/2020 R94.31 Abnormal electrocardiogram [ECG] [EKG] Rashmi Estrada, PA-C 10/08/2020 E78.2 Mixed hyperlipidemia Rashmiphuc Laura now, PA-C 10/08/2020 I65.23 Occlusion and stenosis of bilate ral carotid arteries Rashmi Campbellw, PA-C 10/08/2020 F17.218 Nicotine dependence, cigarettes, with other nicotine-induced disorders Rashmi Campbellw, PA-C 05/28/2020 I25.10 Atherosclerotic heart disease of [place] coronary artery with Stress Nuclear/Reg Treadmill 05/28/2020 I25.2 Old myocardial infarction Stress Nuclear/Reg Treadmill 05/28/2020 Z95.5 Presence of coronary angioplasty implant and graft Stress Nuclear/Reg Treadmill 05/28/2020 Z95.1 Presence of aortocoronary bypass graft Stress Nuclear/Reg Treadmill Plan of Treatment Future Appointment(s):* 12/13/2020 12:45 pm - Rashmi Estrada PA-C at Main Office * 12/30/2020 2:00 pm - ECHO at Main Office 11/19/2020 - Rashmi Estrada PA-C* I50.9 Heart failure, unspecified* New Medication:* Torsemide 10 mg - 2 by mouth every day * Spironolactone 25 mg - 1/2 by mouth every day * New Labs:* Basic Metabolic Profile, Scheduled: 11/19/20 * Complete Blood Count, Scheduled: 11/19/20 * Magnesium Level, Scheduled: 11/19/20 * NT-Pro BNP, Scheduled: 11/19/20 * Basic Metabolic Profile, Scheduled: 12/03/20 * Magnesium Level, Scheduled: 12/03/20 * NT-Pro BNP, Scheduled: 12/03/20 * New Xrays:* US Echocardiogram Transthoracic W Doppler And Color Flow, Scheduled: 11/19/20 * XR Chest 2 Views, Scheduled: 11/19/20 * Recommendations:* 1. Stop taking potassium, amlodipine and chlorthalidone. 2. Start torsemide 10 mg 2 pills every morning. 3. Start spironolactone 25 mg 1/2 pill every morning. 4. Do lab work and chest x-ray today. 5. Repeat lab work the day before your next appointment. 6. Follow a 2 grams sodium diet and 50 ounces fluid restriction per 24 hour and do daily weights. Call the office for weight gain or 3 lbs or more. * All * Follow up:* 2-3 week CV/CHF check. Functional Status Functional Condition Comment Date Status Independent with all ADL's Activ e Mental Status Description No Information Available Referrals Description No Information Available
--- OUTSIDE RECORDS SUMMARY | 2020-12-03 15:07 | CCD | Continuity of Care Document ---
Author Author Rogers ESTRADA PA-C Organization Unknown Address [address] [place] [address], [facility] [place] [address] Phone [phone] Care Team Providers Care Upper Cutter Name Role Phone Jaspal Jones DO AUTM [phone] Ellen Doe MD AUTM [phone] Noam Gilbert AUTM [phone] Problems Active Problems Provider Date Coronary arteriosclerosis [...] ek Exercise Type/Frequency Exercises daily maintain ing PCA Audit Exercise Type/Frequency Does yardwork sporadical ly snow [...] day 45tabs I50.9 Johan Gonzales MD 11/19/2020 Famotidine 40mg Tablets 1 by mouth daily at bedtime 90tabs Jaspal Dyer MD 11/19/[address] 2 by mouth twice a day E83.42 Jaspal Dyer MD 11/19/2020 Xarelto 20mg Tablets 1 by [...] as directed I10 Johan Gonzales MD 03/02/2018 Nitrostat 0.4mg Tablets Sub 1 sl every [...] Date Facility Test Result H/L Range Note Basic Metabolic Profile 11/19/2020 [facility] [phone] Glucose, Fasting 124 mg/dL High 70-100 Blood Urea Nitrogen 21 mg/dL High 7-18 Creatinine For GFR 1.11 mg/dL Normal 0.70-1.30 Glomerular Filtration Rate > 60.0 Normal >42 1 Sodium Level 134 mEq/L Low 136-145 Potassium Serum 3.6 mEq/L Normal 3.5-5.1 Chloride Level 102 mEq/L Normal 98-107 Carbon Dioxide Level 22 mEq/L Normal 21-32 Anion Gap 10 mEq/L Normal 8-16 Calcium Level 7.6 mg/dL Low 8.8-10.2 Complete Blood Count 11/19/2020 [facility] [phone] White Blood Count 7.9 10 Normal 4.0-10.0 Red Blood Count 3.85 10 Low 4.30-6.10 Hemoglobin 10.1 g/dL Low 13.5-17.5 Hematocrit 32.5 % Low 42.0-52.0 Mean Corpuscular Volume 84.4 fl Normal 80.0-96.0 Mean Corpuscular Hemoglobin 26.2 pg Low 27.0-33.0 Mean Corpuscular HGB Conc 31.1 g/dL Low 32.0-36.5 Red Cell Distribution Width 19.5 % High 11.5-14.5 Platelet Count, Automated 205 10 Normal 150-450 Nucleated Red Blood Cell % 0.0 % Normal 0-0 Laboratory test finding 11/19/2020 [facility] [phone] Magnesium Level 0.6 mg/dL Critical low 1.8-2.4 NT-Pro BNP 4825 pg/mL High <125 Comprehensive Metabolic Profil 10/02/2020 [facility] [phone] Glucose, Fasting 78 mg/dL Normal 70-100 Blood Urea Nitrogen 16 mg/dL Normal 7-18 Creatinine For GFR 0.85 mg/dL Normal 0.70-1.30 Glomerular Filtration Rate > 60.0 Normal >42 2 Sodium Level 137 mEq/L Normal 136-145 Potassium [...] Albumin/Globulin Ratio 0.9 Normal Lipid Panel 10/02/2020 [facility]ter [phone] Triglycerides Level 161 mg/dL High <150 Cholesterol Level 145 mg/dL Normal <200 HDL Cholesterol 29 mg/dL Low >40 LDL Cholesterol 84 mg/dL Normal <100 Non-HDL-C 116 mg/dL Normal Cholesterol Risk Ratio 5.000 Normal <5 Complete Blood Count 06/25/2020 [facility] enter [phone] White Blood Count 7.0 10 Normal 4.0-10.0 [...] Little GFR Left ESRD GFR <15 on SOCIAL SERVICES MANAGER 2 Units are mL/min/1.73 m2 Chronic Kidney Disease Staging per NKF: Stage I & II GFR >=60 Normal to Mildly Decreased Stage III GFR 30-59 Moderately Decreased Stage IV GFR 15-29 Severely Decreased Stage V GFR <15 Very Little GFR Left ESRD GFR <15 on SOCIAL SERVICES MANAGER Procedures Date Code Description Status 10/08/2020 49497 ECG 12-Lead Completed 05/28/2020 15863 Treadmill/Pharmacological [place] ring Completed 05/28/2020 65633 Myocardial Perfusion Spect Multi ple Completed Medical Devices Description No Information Available Encounters Type Date Location Provider Dx Diagnosis Office Visit 11/19/2020 7:45a Main Office Rashmi Estrada PA-C I50.9 Heart failure, unspecified Office Visit 10/08/2020 7:45a Main Office Rashmi Estrada PA-C I25.1 0 Athscl heart disease of [place] coronary artery w/o ang pctrs I25.2 Old [...] Description Provider 11/19/2020 I50.9 Heart failure, unspecified Rashmisanket Brisenoroxiew, PA-C 10/08/2020 I25.10 Atherosclerotic heart disease of [place] coronary artery with Rashmi Campbellw, PA-C 10/08/2020 I25.2 Old myocardial infarction Rashmi Brisenoenow, PA-C 10/08/2020 Z95.5 Presence of coronary angioplasty implant and graft Rashmi Campbellw, PA-C 10/08/2020 Z95.1 Presence of aortocoronary bypass graft Rashmi Campbellw, PA-C 10/08/2020 I48.3 Typical atrial flutter Rashmi Friend Jaylen liriano, PA-C 10/08/2020 I10 Essential (primary) hypertension Rashmi Brisenoenow, PA-C 10/08/2020 I34.0 Nonrheumatic mitral (valve) insu fficiency Rashmi Friend Symenow, PA-C 10/08/2020 I35.8 Other nonrheumatic aortic valve disorders Rashmi Campbellw, PA-C 10/08/2020 R94.31 Abnormal electrocardiogram [ECG] [EKG] Rashmi Campbellw, PA-C 10/08/2020 E78.2 Mixed hyperlipidemia Rashmi Laura now, PA-C 10/08/2020 I65.23 Occlusion and stenosis of bilate ral carotid arteries Rashmi Campbellw, PA-C 10/08/2020 F17.218 Nicotine dependence, cigarettes, with other nicotine-induced disorders Rashmi Campbellw, PA-C 05/28/2020 I25.10 Atherosclerotic heart disease of [place] coronary artery with Stress Nuclear/Reg Treadmill 05/28/2020 [...] * New Labs:* Basic Metabolic Profile, Scheduled: 12/03/20 * Magnesium [...]
--- OUTSIDE RECORDS SUMMARY | 2020-12-03 15:07 | CCD | Continuity of Care Document ---
Author Organization Unknown Address Unknown Phone Unavailable Care Team Providers Care Manipulator Operator Name Role Phone Florinda Valencia D.O. AUTM Noam Vega MD AUTM [phone] Ellen Mcgarry MD AUTM [phone] Problems Active Problems Provider Date Atherosclerosis of coronary artery without angina pectoris M [place] Onset: 01/10/2020 History of coronary artery bypass grafting [place] Onset: 01/10/2020 Hyperlipidemia [place] Onset: 01/10/2020 Essential hypertension [place] Onset: 01/10/2020 Social History Type Date Description Comments Sex Unknown Tobacco Use Start: Unknown Light tobacco smoker (10 or fewe r cigarettes/day) ETOH Use Occasionally consumes alcohol Tobacco Use Start: Unknown Patient is a current smoker, smo kes every day Recreational Drug Use Denies Drug Use Exercise Type/Frequency Does not exercise Sun Exposure Does not use sunscreen Seat Belt/Car Seat Always uses seat belt Allergies, Adverse Reactions, Alerts Active Allergies Reaction Severity Comments Date Penicillin Hives 12/28/2019 Medications Active Medications SIG Qnty Indications Ordering Provide r Date Shingrix 50mcg/0.5ML Suspension Re c administer shingrix vaccine at pharmacy 1units Florinda Fulton D.O. 07/12/2020 Ramipril 10mg Capsules Take One Capsule By Mouth Every Day Unknown Omeprazole 20mg Capsules DR Take One Capsule By Mouth Every Day Unknown Bisoprolol Fumarate 10mg Tablets Take One Tablet By Mouth Every Day Unknown Chlorthalidone 25mg Tablets Take 1/2 Tablet By Mouth Once Daily Unknown Pravastatin Sodium 20mg Tablets Take One Tablet By Mouth AT Bedtime Unknown Potassium Chloride Brenda ER 20Meq Tablets ER Take One Tablet By Mouth Twice A Day Unkn own Aspirin [address] 1 by mouth every day Unknown Xarelto 20mg Tablets 1 by mouth every day Unknown Immunizations Description No Information Available Vital Signs Date Vital Result Comment 07/12/2020 10:09am BP Systolic 128 mmHg BP Diastolic 88 mmHg Height 73 inches 6'1" Weight 185.12 lb BMI (Body Mass Index) 24.4 kg/m2 Heart Rate 81 /min Respiratory Rate 22 /min Body Temperature 98.7 F O2 % BldC Oximetry 98 % [place] Body Weight 184 lb 01/10/2020 9:47am BP Systolic 126 mmHg BP Diastolic 82 mmHg Height 73 inches 6'1" Weight 197.00 lb BMI (Body Mass Index) 26.0 kg/m2 Heart Rate 62 /min Respiratory Rate 18 /min Body Temperature 98.6 F O2 % BldC Oximetry 99 % [place] Body Weight 184 lb Results Test Acquired Date Facility Test Result H/L Range Note Complete Blood Count 11/19/2020 [facility] Outpatient Test ing (Registration) [address] [place] [address] [id number] [phone] White Blood Count 7.9 10 Normal 4.0-10.0 [...] Blood Cell % 0.0 % Normal 0-0 Basic Metabolic Profile 11/19/2020 [facility] Outpatient T esting (Registration) [address] [place] [address] [id number] [phone] Glucose, Fasting 124 mg/dL High 70-100 Blood [...] 8-16 Calcium Level 7.6 mg/dL Low 8.8-10.2 Laboratory test finding 11/19/2020 [facility] Outpatient T hollie (Registration) [address] [place] [address] [phone] Magnesium Level 0.6 mg/dL Critical low 1.8-2.4 NT-Pro BNP 4825 pg/mL High <125 1 Units are mL/min/1.73 m2 Chronic Kidney Disease Staging per NKF: Stage I & II GFR >=60 Normal to Mildly Decreased Stage III GFR 30-59 Moderately Decreased Stage IV GFR 15-29 Severely Decreased Stage V GFR <15 Very Little GFR Left ESRD GFR <15 on POST MANAGER Procedures Description No Information Available Medical Devices Description No Information Available Encounters Type Date Location Provider Dx Diagnosis Office Visit 07/12/2020 10:00a [facility] [place] I10 Essential (primary) hyperten dimas E78.5 Hyperlipidemia, unspecified Z95.1 Presence of aortocoronary by pass graft I25.10 Athscl heart disease of [place] coronary artery w/o ang pctrs Z12.5 Encounter for screening for malignant neoplasm of prostate Assessments Date Code Description Provider 07/12/2020 I10 Essential (primary) hypertension [place] 07/12/2020 E78.5 Hyperlipidemia, unspecified Ron ael [place] 07/12/2020 Z95.1 Presence of aortocoronary bypass graft [place] 07/12/2020 I25.10 Atherosclerotic hear t disease of [place] coronary artery without angina pectoris [place] 07/12/2020 Z12.5 Encounter for screening for jesse gnant neoplasm of prostate [place] Plan of Treatment Future Appointment(s):* 01/09/2021 9:20 am - Florinda Valencia D.O. at [facility] Functional Status Description No Information Available Mental Status Description No Information Available Referrals Description No Information Available
--- OUTSIDE RECORDS SUMMARY | 2020-12-03 15:07 | CCD | Continuity of Care Document ---
Author Author Rogers PEREZ NM Organization Unknown Address [address] [place] [address] [place] [address] Phone [phone] Care Team Providers Care Director Manufacturing Engineering Name Role Phone Florinda Valencia DO AUTM [phone] [employer] AUTM [phone] Problems Description No Information Available Social History [...] Ordering Provide r Date Azelastine HCL (Nasal) 137mcg/[place] Solution 2 sprays each nostril twice a [...] CPT Code Status Date Vaccine Lot # [id number] Given 04/24/2019 Tdap/Tetanus, Di phth Toxoids/Acellular Pertussis Vac 7Yr Or > [id number] Vital Signs Date Vital Result Comment 11/09/2020 [...] rhinitis* New Medication:* Azelastine HCL (Nasal) 137 mcg/[place]ama - 2 sprays each nostril twice a [...]
--- OUTSIDE RECORDS SUMMARY | 2020-12-03 15:08 | CCD | Continuity of Care Document ---
Author Author Rogers ESTRADA PA-C Organization Unknown Address [address] [place] [address], [facility] 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 Phone Jaspal Jones DO AUTM [phone] Ellen Doe MD AUTM [phone] Noam Gilbert AUTM [phone] Problems Active Problems Provider Date Coronary arteriosclerosis [...] Estrada PA-C Onset: 06/21/2015 Electrocardiogram abnormal Rashmi Estrada, PA-C Onset: 01/21 Mixed hyperlipidemia Rashmi Estrada, PA-C Onset: 01/15/2017 Cigarette smoker Rashmi Estrada PA-C Onset: 01/15/2017 Carotid artery occlusion Rashmi Estrada, PA-C Onset: 018 Dietary management surveillance Rashmi [...] 16, currently 1/2 ppd Smoking Status Reviewed: 10/08/20 Patient is a current smoker, smokes every day started at age 16, currently 1/2 ppd Exercise Type/Frequency Walks sporadically Exercise Type/Frequency Does yardwork twice a we ek Exercise Type/Frequency Exercises daily maintain ing [employer] Exercise Type/Frequency Does yardwork sporadical ly snow shoveling as needed Exercise Limitations None Allergies, Adverse Reactions, Alerts Active Allergies Reaction Severity Comments Date Penicillin hives 12/03/2006 Fenofibrate muscle cramps and severe mus stuart pain 02/08/2013 Lipitor leg cramps 09/11/2013 Simvastatin myalgias and diarrhea 2016 Rosuvastatin Muscle/leg pains 03/09/2019 Medications Active Medications SIG Qnty Indications Ordering Provide r Date Xarelto 20mg Tablets 1 by mouth every day with evening meal 90tabs I48.3 Johan Gonzales MD 10/08/2020 Amlodipine Besylate 5mg Tablets 1 by mouth every day 90tabs I10 Johan Gonzales MD 10/08/2020 Bisoprolol Fumarate 10mg Tablets 1 by mouth every day 90tabs I10 Johan Gonzales MD 09/06/2019 I25.10 Potassium Chloride Brenda ER 20Meq Tablets ER 1 by mouth twice a day 180tabs Johan Gonzales MD 08/29/2019 Pravastatin Sodium 20mg Tablets 1 by mouth every night at bedtime 90tabs E78.2 Johan Gonzales MD 2018 I25.10 Tylenol 8 Hour 650mg Tablets ER take as directed I10 Johan Gonzales MD 03/02/2018 Chlorthalidone 25mg Tablets 1/2 by mouth every day 45tabs I10 Jaspal Dyer MD 07/21/[address] 1 by mouth every day 90caps Johan Gonzales MD 06/15/2014 Nitrostat 0.4mg Tablets Sub 1 sl every 5min x3 as needed for chest pain 25tabs I25.10 Johan Gonzales MD 08/10/2013 Altace 10mg Capsules 1 by mouth daily 90caps I10 Jaspal Dyer MD 07/25/2012 I25.10 Aspir-[address] 1 PO daily Johan Gonzales MD 03/13/2008 History Medications Eliquis 5mg Tablets 1 by mouth twice a day 180tabs I48.3 Johan Gonzales MD 05/29/2020 - 10/08/2020 Clopidogrel Bisulfate 75mg Tablets 1 by mouth every day Unknown 04/14/2020 - 12/2019 Immunizations Description No Information Available Vital Signs Date Vital Result Comment 10/08/2020 7:46am Weight 183.00 lb Home Weight 180lb Home weight Height 74 inches 6'2" BMI (Body Mass Index) 23.5 kg/m2 Heart Rate 88 /min Regular Respiratory Rate 16 /min BP Systolic Right Arm 156 mmHg sitting, regular c uff BP Diastolic Right Arm 78 mmHg sitting, regular cuff BP Systolic Left Arm 156 mmHg sitting BP Diastolic Left Arm 80 mmHg sitting 04/15/2020 8:13am Weight 185.00 lb Height 74 inches 6'2" BMI (Body Mass Index) 23.8 kg/m2 Heart Rate 84 /min Regular Respiratory Rate 16 /min BP Systolic Right Arm 136 mmHg sitting, regular c uff BP Diastolic Right Arm 76 mmHg sitting, regular cuff BP Systolic Left Arm 132 mmHg sitting BP Diastolic Left Arm 76 mmHg sitting Results Test Acquired Date Facility Test Result H/L Range Note Comprehensive Metabolic Profil 10/02/2020 [facility] [phone] Glucose, Fasting 78 mg/dL Normal 70-100 Blood [...] Albumin/Globulin Ratio 0.9 Normal Lipid Panel 10/02/2020 [facility] nter [phone] Triglycerides Level 161 mg/dL High <150 Cholesterol Level 145 mg/dL Normal <200 HDL Cholesterol 29 mg/dL Low >40 LDL Cholesterol 84 mg/dL Normal <100 Non-HDL-C 116 mg/dL Normal Cholesterol Risk Ratio 5.000 Normal <5 Complete Blood Count 06/25/2020 [facility] enter [phone] White Blood Count 7.0 10 Normal 4.0-10.0 [...] Little GFR Left ESRD GFR <15 on 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 Procedures Date Code Description Status 10/08/2020 48301 ECG 12-Lead Completed 05/28/2020 50444 Treadmill/Pharmacological Monito ring Completed 05/28/2020 65207 Myocardial Perfusion Spect Multi ple Completed 04/15/2020 10100 ECG 12-Lead Completed Medical Devices Description No Information Available Encounters Type Date Location Provider Dx Diagnosis Office Visit 10/08/2020 7:45a Main Office Rashmi Estrada PA-C I25.1 0 Athscl heart disease of [place] coronary artery w/o ang pctrs I25.2 Old [...] and stenosis of bi lateral carotid arteries I73.9 Peripheral vascular disease, unspecified F17.218 Nicotine dependence, cigaret zee, w oth disorders Office Visit 04/15/2020 8:15a Main Office Rashmi Estrada, PA-C I25.1 0 Athscl heart disease of [place] coronary artery w/o ang pctrs Z95.5 Presence of coronary angiopl asty implant and graft I25.2 Old myocardial infarction Z95.1 Presence of aortocoronary by pass graft I10 Essential (primary) hyperten dimas I34.0 Nonrheumatic mitral (valve) insufficiency I35.8 Other nonrheumatic aortic va lve disorders R94.31 Abnormal electrocardiogram [ ECG] [EKG] E78.2 Mixed hyperlipidemia I65.23 Occlusion and stenosis of bi lateral carotid arteries I73.9 Peripheral vascular disease, unspecified F17.218 Nicotine dependence, cigaret zee, w oth disorders Assessments Date Code Description Provider 10/08/2020 I25.10 Atherosclerotic heart disease of [place] coronary artery with Rashmi Estrada, PA-C 10/08/2020 I25.2 Old myocardial infarction Rashmi Estrada, PA-C 10/08/2020 Z95.5 Presence of coronary angioplasty implant and graft Rashmi Estrada, PA-C 10/08/2020 Z95.1 Presence of aortocoronary bypass graft Rashmi Estrada, PA-C 10/08/2020 I48.3 Typical atrial flutter Rashmi liriano PA-C 10/08/2020 I10 Essential (primary) hypertension Rashmi Estrada, PA-C 10/08/2020 I34.0 Nonrheumatic mitral (valve) insu fficiency Rashmi Estrada, PA-C 10/08/2020 I35.8 Other nonrheumatic aortic valve disorders Rashmi Estrada, PA-C 10/08/2020 R94.31 Abnormal electrocardiogram [ECG] [EKG] Rashmi Estrada, PA-C 10/08/2020 E78.2 Mixed hyperlipidemia Rashmi Laura now, PA-C 10/08/2020 I65.23 Occlusion and stenosis of bilate ral carotid arteries Rashmisanket Campbellw, PA-C 10/08/2020 I73.9 Peripheral vascular disease, uns pecified Rashmi Friend Finnroxiew, PA-C 10/08/2020 F17.218 Nicotine dependence, cigarettes, with other nicotine-induced Rashmi Campbellw, PA-C 05/28/2020 I25.10 Atherosclerotic heart disease of [place] coronary artery with Stress Nuclear/Reg Treadmill 05/28/2020 I25.2 Old myocardial infarction Stress Nuclear/Reg Treadmill 05/28/2020 Z95.5 Presence of coronary angioplasty implant and graft Stress Nuclear/Reg Treadmill 05/28/2020 Z95.1 Presence of aortocoronary bypass graft Stress Nuclear/Reg Treadmill 05/06/2020 I25.10 Atherosclerotic heart disease of [place] coronary artery with Stress Nuclear/Reg Treadmill 05/06/2020 I25.2 Old myocardial infarction Stress Nuclear/Reg Treadmill 05/06/2020 Z95.5 Presence of coronary angioplasty implant and graft Stress Nuclear/Reg Treadmill 05/06/2020 Z95.1 Presence of aortocoronary bypass graft Stress Nuclear/Reg Treadmill 04/15/2020 I25.10 Atherosclerotic heart disease of [place] coronary artery with Rashmi Brisenoroxiew, PA-C 04/15/2020 Z95.5 Presence of coronary angioplasty implant and graft Rashmisanket Campbellw, PA-C 04/15/2020 I25.2 Old myocardial infarction Rashmi Campbellw, PA-C 04/15/2020 Z95.1 Presence of aortocoronary bypass graft Rashmi Campbellw, PA-C 04/15/2020 I10 Essential (primary) hypertension Rashmi Brisenoenow, PA-C 04/15/2020 I34.0 Nonrheumatic mitral (valve) insu fficiency Rashmi Campbellw, PA-C 04/15/2020 I35.8 Other nonrheumatic aortic valve disorders Rashmi Campbellw, PA-C 04/15/2020 R94.31 Abnormal electrocardiogram [ECG] [EKG] Rashmi Campbellw, PA-C 04/15/2020 E78.2 Mixed hyperlipidemia Rashmi philip PA-C 04/15/2020 I65.23 Occlusion and stenosis of bilate ral carotid arteries Rashmi Estrada PA-C 04/15/2020 I73.9 Peripheral vascular disease, uns pecified Rashmi Estrdaa PA-C 04/15/2020 F17.218 Nicotine dependence, cigarettes, with other nicotine-induced Rashmi Estrada PA-C Plan of Treatment Future Appointment(s):* 11/19/2020 7:45 am - Rashmi Estrada PA-C at Main Office 10/08/2020 - Rashmi Estrada PA-C* I25.10 Atherosclerotic heart disease of [place] coronary artery with * I25.2 Old myocardial infarction * Z95.5 Presence of coronary angioplasty implant and graft * Z95.1 Presence of aortocoronary bypass graft * I48.3 Typical atrial flutter* New Medication:* Xarelto 20 mg - 1 by mouth every day with evening meal * Recommendations:* 1. Stop taking Eliquis. 2. Start taking Xarelto 20 mg one pill every evening with dinner. * I10 Essential (primary) hypertension* New Medication:* Amlodipine Besylate 5 mg - 1 by mouth every day * Recommendations:* 1. Start taking amlodipine 5 mg one pill every morning. * I34.0 Nonrheumatic mitral (valve) insufficiency * I35.8 Other nonrheumatic aortic valve disorders * R94.31 Abnormal electrocardiogram [ECG] [EKG] * E78.2 Mixed hyperlipidemia * I65.23 Occlusion and stenosis of bilateral carotid arteries * I73.9 Peripheral vascular disease, unspecified * F17.218 Nicotine dependence, cigarettes, with other nicotine-induced* Recommendations:* Smoke cessation is crucial. * All * Follow up:* 6 week CV/BP check. Functional Status Functional Condition Comment Date Status Independent with all ADL's Activ e Mental Status Description No Information Available Referrals Description No Information Available
--- OUTSIDE RECORDS SUMMARY | 2020-12-03 15:08 | CCD | Continuity of Care Document ---
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 Role Phone No PCP AUTM [phone] Jaspal Jones DO AUTM [phone] Ellen Doe MD AUTM [phone] Noam Gilbert AUTM [phone] Problems Active Problems Provider Date Coronary arteriosclerosis Rashmi Estrada, PA-C Onset: 2011 Old myocardial infarction Rashmi Estrada, PA-C Onset: 2011 Patient post percutaneous transluminal coronary angiop lasty Rashmi Estrada PA-C Onset: 01/22/2012 History of coronary artery bypass grafting Rashmi Estrada P A-C Onset: 12/25/2015 Essential hypertension Rashmi Estrada, PA-C Onset: 6 Mitral valve disorder Rashmi Estrada, PA-C Onset: 01/22/2012 Aortic valve disorder Rashmi Estrada, PA-C Onset: 06/21/2015 Electrocardiogram abnormal Rashmi Estrada, PA-C Onset: 01/21 Mixed hyperlipidemia Rashmi Estrada, PA-C Onset: 01/15/2017 Cigarette smoker Rashmi Estrada, PA-C Onset: 01/15/2017 Carotid artery occlusion Rashmi Estrada, PA-C Onset: 018 Dietary management surveillance Rashmi Estrada, PA-C Onset: 03/02/2018 Peripheral vascular disease Rashmi [...] 16, currently 1/2 ppd Smoking Status Reviewed: 04/15/20 Patient is a current smoker, smokes every day started at age 16, currently 1/2 ppd Exercise Type/Frequency Walks sporadically Exercise Type/Frequency Does yardwork twice a we ek Exercise Type/Frequency Exercises daily maintain ing the [employer] Exercise Type/Frequency Does yardwork sporadical ly snow shoveling as needed Exercise Limitations None Allergies, Adverse Reactions, Alerts Active Allergies Reaction Severity Comments Date Penicillin hives 12/03/2006 Fenofibrate muscle cramps and severe mus stuart pain 02/08/2013 Lipitor leg cramps 09/11/2013 Simvastatin myalgias and diarrhea 2016 Rosuvastatin Muscle/leg pains 03/09/2019 Medications Active Medications SIG Qnty Indications Ordering Provide r Date Eliquis 5mg Tablets 1 by mouth twice a day 180tabs Johan Gonzales MD 05/29/2020 Bisoprolol Fumarate 10mg Tablets 1 by mouth [...] MD 07/25/2012 I25.10 Aspir-[address] Light PO daily Johan Gonzales MD 03/13/2008 History Medications Clopidogrel Bisulfate 75mg Tablets 1 by mouth every day Unknown 04/14/2020 - 12/2019 Immunizations Description No Information Available Vital Signs Date Vital Result Comment 04/15/2020 8:13am Weight 185.00 lb Height 74 inches 6'2" BMI (Body Mass Index) 23.8 kg/m2 Heart Rate 84 /min Regular Respiratory Rate 16 /min BP Systolic Right Arm 136 mmHg sitting, regular c uff BP Diastolic Right Arm 76 mmHg sitting, regular cuff BP Systolic Left Arm 132 mmHg sitting BP Diastolic Left Arm 76 mmHg sitting 10/11/2019 7:56am Weight 195.00 lb Height 74 inches 6'2" BMI (Body Mass Index) 25.0 kg/m2 Heart Rate 76 /min Regular Respiratory Rate 16 /min BP Systolic Right Arm 134 mmHg Sitting, regular c uff BP Diastolic Right Arm 68 mmHg Sitting, regular cuff Results Test Acquired Date Facility Test Result H/L Range Note Comprehensive Metabolic Profil 10/02/2020 [facility] [phone] Glucose, Fasting 78 mg/dL Normal 70-100 Blood [...] Albumin/Globulin Ratio 0.9 Normal Lipid Panel 10/02/2020 [facility] nter [phone] Triglycerides Level 161 mg/dL High <150 Cholesterol Level 145 mg/dL Normal <200 HDL Cholesterol 29 mg/dL Low >40 LDL Cholesterol 84 mg/dL Normal <100 Non-HDL-C 116 mg/dL Normal Cholesterol Risk Ratio 5.000 Normal <5 Complete Blood Count 06/25/2020 [facility] enter [phone] White Blood Count 7.0 10 Normal 4.0-10.0 [...] 0.0 % Normal 0-0 Basic Metabolic Profile 04/07/2020 [facility] [phone] Glucose, Fasting 118 mg/dL High 70-100 Blood Urea Nitrogen 10 mg/dL Normal 7-18 Creatinine For GFR 0.99 mg/dL Normal 0.70-1.30 Glomerular Filtration Rate > 60.0 Normal >42 2 Sodium Level 136 mEq/L Normal 136-145 Potassium Serum 3.0 mEq/L Low 3.5-5.1 Chloride Level 97 mEq/L Low 98-107 Carbon Dioxide Level 26 mEq/L Normal 21-32 Anion Gap 13 mEq/L Normal 8-16 Calcium Level 6.5 mg/dL Low 8.8-10.2 1 Units are mL/min/1.73 m2 Chronic Kidney Disease Staging per NKF: Stage I & II GFR >=60 Normal to Mildly Decreased Stage III GFR 30-59 Moderately Decreased Stage IV GFR 15-29 Severely Decreased Stage V GFR <15 Very Little GFR Left ESRD GFR <15 on GENERAL INTERNIST 2 Units are mL/min/1.73 m2 Chronic Kidney Disease Staging per NKF: Stage I & II GFR >=60 Normal to Mildly Decreased Stage III GFR 30-59 Moderately Decreased Stage IV GFR 15-29 Severely Decreased Stage V GFR <15 Very Little GFR Left ESRD GFR <15 on GENERAL INTERNIST Procedures Date Code Description Status 05/28/2020 61218 Treadmill/Pharmacological Monito ring Completed 05/28/2020 28412 Myocardial Perfusion Spect Multi ple Completed 04/15/2020 61883 ECG 12-Lead Completed Medical Devices Description No Information Available Encounters Type Date Location Provider Dx Diagnosis Office Visit 04/15/2020 8:15a Main Office Rashmi Estrada PA-C I25.1 0 Athscl heart disease of [place] coronary artery w/o ang pctrs Z95.5 Presence [...] oth disorders Assessments Date Code Description Provider 05/28/2020 I25.10 Atherosclerotic heart disease of [place] coronary artery with Stress Nuclear/Reg Treadmill 05/28/2020 I25.2 Old myocardial infarction Stress Nuclear/Reg Treadmill 05/28/2020 Z95.5 Presence of coronary angioplasty implant and graft Stress Nuclear/Reg Treadmill 05/28/2020 Z95.1 Presence of aortocoronary bypass graft Stress Nuclear/Reg Treadmill 05/06/2020 I25.10 Atherosclerotic heart disease of [place] coronary artery with Stress Nuclear/Reg Treadmill 05/06/2020 I25.2 Old myocardial infarction Stress Nuclear/Reg Treadmill 05/06/2020 Z95.5 Presence of coronary angioplasty implant and graft Stress Nuclear/Reg Treadmill 05/06/2020 Z95.1 Presence of aortocoronary bypass graft Stress Nuclear/Reg Treadmill 04/15/2020 I25.10 Atherosclerotic heart disease of [place] coronary artery with Rashmi Estrada PA-C 04/15/2020 Z95.5 Presence of coronary angioplasty implant and graft Rashmi Estrada PA-C 04/15/2020 I25.2 Old myocardial infarction Rashmi Estrada PA-C 04/15/2020 Z95.1 Presence of aortocoronary bypass graft Rashmi Estrada PA-C 04/15/2020 I10 Essential (primary) hypertension Rashmi Estrada PA-C 04/15/2020 I34.0 Nonrheumatic mitral (valve) insu fficiency Rashmi Estrada PA-C 04/15/2020 I35.8 Other nonrheumatic aortic valve disorders Rashmi Estrada PA-C 04/15/2020 R94.31 Abnormal electrocardiogram [ECG] [EKG] Rashmi Estrada PA-C 04/15/2020 E78.2 Mixed hyperlipidemia Rashmi philip PA-C 04/15/2020 I65.23 Occlusion and stenosis of bilate ral carotid arteries Rashmi Estrada PA-C 04/15/2020 I73.9 Peripheral vascular disease, uns pecified Rashmi Estrada PA-C 04/15/2020 F17.218 Nicotine dependence, cigarettes, with other nicotine-induced Rashmi Estrada PA-C Plan of Treatment Future Appointment(s):* 10/08/2020 7:45 am - Rashmi Estrada PA-C at Main Office 04/15/2020 - Rashmi Estrada PA-C* I25.10 Atherosclerotic heart disease of [place] coronary artery with * Z95.5 Presence of coronary angioplasty implant and graft * I25.2 Old myocardial infarction * Z95.1 Presence of aortocoronary bypass graft * I10 Essential (primary) hypertension * I34.0 Nonrheumatic mitral (valve) insufficiency * I35.8 Other nonrheumatic aortic valve disorders * R94.31 Abnormal electrocardiogram [ECG] [EKG] * E78.2 Mixed hyperlipidemia * I65.23 Occlusion and stenosis of bilateral carotid arteries * I73.9 Peripheral vascular disease, unspecified * F17.218 Nicotine dependence, cigarettes, with other nicotine-induced* Recommendations:* Smoke cessation is crucial. * All * Follow up:* 6 month follow up. Obtain office notes from Dr. Doe and operative report from [facility]. Functional Status Functional Condition Comment Date Status Independent with all ADL's Activ e Mental Status Description No Information Available Referrals Description No Information Available
--- OUTSIDE RECORDS SUMMARY | 2020-12-03 15:08 | CCD ---
Author Author [facility] Organization [facility] Address Unknown Phone Unavailable Care Team Providers Care Spiral Winding Machine Helper Name Role Phone Bhavna Doe MD Unavailable Unavailable Esauerstrand, Bhavna Hughes MD Unavailable Unavailable Cederstrand, Bhavna Hughes MD Unavailable Unavailable Esauerstrand, Bhavna Hughes MD Unavailable Unavailable Esauerstrand, Bhavna Hughes MD Unavailable Unavailable Cederstrand, Bhavna Hughes MD Unavailable Unavailable Cederstrand, Bhavna Hughes MD Unavailable Unavailable Cederstrand, Bhavna Hughes MD Unavailable Unavailable Cederstrand, Bhavna Hughes MD Unavailable Unavailable Esauerstrand, Bhavna Hughes MD Unavailable Unavailable [place]ederstrand, Bhavna Hughes MD Unavailable Unavailable Cederstrand, Bhavna Hughes MD Unavailable Unavailable Cederstrand, Bhavna Hughes MD Unavailable Unavailable Batooltrand, Bhavna Hughes MD Unavailable Unavailable Cederstrand, Bhavna Hughes MD Unavailable Unavailable Maxine Sánchez PA Unavailable Unavailable FinnenoMaxine neal PA Unavailable Unavailable SymenoMaxine neal PA Unavailable Unavailable FinnenoMaxine neal PA Unavailable Unavailable FinnenoMaxine neal PA Unavailable Unavailable FinnenoMaxine neal PA Unavailable Unavailable SymenoMaxine neal PA Unavailable Unavailable SymenowMaxine PA Unavailable Unavailable SymenoMaxine neal PA Unavailable Unavailable SymenowMaxine PA Unavailable Unavailable SymenowMaxine PA Unavailable Unavailable Symenow, Maxine Rashmi PA Unavailable Unavailable Symenow, Maxine Rashmi PA Unavailable Unavailable Symenow, Maxine Rashmi PA Unavailable Unavailable Symenow, Maxine Rashmi PA Unavailable Unavailable Symenow, Maxine Rashmi PA Unavailable Unavailable Symenow, Maxine Rashmi PA Unavailable Unavailable Symenow, Maxine Rashmi PA Unavailable Unavailable Symenow, Maxine Rashmi PA Unavailable Unavailable Symenow, Maxine Rashmi PA Unavailable Unavailable Symenow, Maxine Rashmi PA Unavailable Unavailable Symenow, Maxine Rashmi PA Unavailable Unavailable Symenow, Maxine Rashmi PA Unavailable Unavailable Symenow, Maxine Rashmi PA Unavailable Unavailable Symenow, Maxine Rashmi PA Unavailable Unavailable Symenow, Maxine Rashmi PA Unavailable Unavailable Symenow, Maxine Rashmi PA Unavailable Unavailable Symenow, Maxine Rashmi PA Unavailable Unavailable Symenow, Maxine Rashmi PA Unavailable Unavailable Symenow, Maxine Rashmi PA Unavailable Unavailable Symenow, Maxine Rashmi PA Unavailable Unavailable Symenow, Maxine Rashmi PA Unavailable Unavailable Symenow, Maxine Rashmi PA Unavailable Unavailable Symenow, Maxine Rashmi PA Unavailable Unavailable Symenow, Maxine Rashmi PA Unavailable Unavailable Symenow, Maxine Rashmi PA Unavailable Unavailable Remy, L Elisabet RPA Unavailable Unavailable Remy, L Elisabet RPA Unavailable Unavailable Remy, L Elisabet RPA Unavailable Unavailable Remy, L Elisabet RPA Unavailable Unavailable Remy, L Elisabet RPA Unavailable Unavailable Remy, L Elisabet RPA Unavailable Unavailable Remy, L Elisabet RPA Unavailable Unavailable Remy, L Elisabet RPA Unavailable Unavailable Remy, L Elisabet RPA Unavailable Unavailable Remy, L Elisabet RPA Unavailable Unavailable Remy, L Elisabet RPA Unavailable Unavailable Remy, L Elisabet RPA Unavailable Unavailable Remy, L Elisabet RPA Unavailable Unavailable Remy, L Elisabet RPA Unavailable Unavailable Remy, L Elisabet RPA Unavailable Unavailable Remy, L Elisabet RPA Unavailable Unavailable Remy, L Elisabet RPA Unavailable Unavailable Remy, L Elisabet RPA Unavailable Unavailable Remy, L Elisabet RPA Unavailable Unavailable Remy, L Elisabet RPA Unavailable Unavailable Remy, L Elisabet RPA Unavailable Unavailable Remy, L Elisabet RPA Unavailable Unavailable Remy, L Elisabet RPA Unavailable Unavailable Remy, L Elisabet RPA Unavailable Unavailable Remy, L Elisabet RPA Unavailable Unavailable Remy, L Elisabet RPA Unavailable Unavailable Remy, L Elisabet RPA Unavailable Unavailable Remy, L Elisabet RPA Unavailable Unavailable Remy, L Elisabet RPA Unavailable Unavailable Remy, L Elisabet RPA Unavailable Unavailable Remy, L Elisabet RPA Unavailable Unavailable Remy, L Elisabet RPA Unavailable Unavailable Asher, Geraldine Trudi PA Unavailable Unavailable Asher, Geraldine Trudi PA Unavailable Unavailable Asher, Geraldine Trudi PA Unavailable Unavailable Asher, Geraldine Trudi PA Unavailable Unavailable Asher, Geraldine Trudi PA Unavailable Unavailable Asher, Geraldine Trudi PA Unavailable Unavailable Asher, Geraldine Trudi PA Unavailable Unavailable Asher, Geraldine Trudi PA Unavailable Unavailable Asher, Geraldine Trudi PA Unavailable Unavailable Asher, Geraldine Trudi PA Unavailable Unavailable O'trev, A Noam PA Unavailable Unavailable O'trev, A Noam PA Unavailable Unavailable O'trev, A Noam PA Unavailable Unavailable O'trev, A Noam PA Unavailable Unavailable O'trev, A Noam PA Unavailable Unavailable O'trev, A Noam PA Unavailable Unavailable O'trev, A Noam PA Unavailable Unavailable O'trev, A Noam PA Unavailable Unavailable O'trev, A Noam PA Unavailable Unavailable O'trev, A Noam PA Unavailable Unavailable O'trev, A Noam PA Unavailable Unavailable O'trev, A Noam PA Unavailable Unavailable O'trev, A Noam PA Unavailable Unavailable O'trev, A Noam PA Unavailable Unavailable O'trev, A Noam PA Unavailable Unavailable O'trev, A Noam PA Unavailable Unavailable O'trev, A Noam PA Unavailable Unavailable O'trev, A Noam PA Unavailable Unavailable O'trev, A Noam PA Unavailable Unavailable O'trev, A Noam PA Unavailable Unavailable O'trev, A Noam PA Unavailable Unavailable O'trev, A Noam PA Unavailable Unavailable O'trev, A Noam PA Unavailable Unavailable O'trev, A Noam PA Unavailable Unavailable O'trev, A Noam PA Unavailable Unavailable O'trev, A Noam PA Unavailable Unavailable O'trev, A Noam PA Unavailable Unavailable O'trev, A Noam PA Unavailable Unavailable O'trev, A Noam PA Unavailable Unavailable O'trev, A Noam PA Unavailable Unavailable O'trev, A Noam PA Unavailable Unavailable O'trev, A Noam PA Unavailable Unavailable Re-disclosure Warning The records that you are about to access may contain information from federally-assisted alcohol or drug abuse programs. If such information is present, then the following federally mandated warning applies: This information has been disclosed to you from records protected by federal confidentiality rules (42 CFR part 2). The federal rules prohibit you from making any further disclosure of this information unless further disclosure is expressly permitted by the written consent of the person to whom it pertains or as otherwise permitted by 42 CFR part 2. A general authorization for the release of medical or other information is NOT sufficient for this purpose. The Federal rules restrict any use of the information to criminally investigate or prosecute any alcohol or drug abuse patient.The records that you are about to access may contain highly sensitive health information, the redisclosure of which is protected by Article 27-F of the [facility] Public Health law. If you continue you may have access to information: Regarding HIV / AIDS; Provided by facilities licensed or operated by the [facility] Office of Mental Health; or Provided by the [facility] Office for People With Developmental Disabilities. If such information is present, then the following [facility] mandated warning applies: This information has been disclosed to you from confidential records which are protected by state law. State law prohibits you from making any further disclosure of this information without the specific written consent of the person to whom it pertains, or as otherwise permitted by law. Any unauthorized further disclosure in violation of state law may result in a fine or [place] health care facility sentence or both. A general authorization for the release of medical or other information is NOT sufficient authorization for further disc losure. Allergies and Adverse Reactions Type Description Substance Reaction Status Data Source(s ) Drug Class PENICILLINS Penicillin [facility] Family History Family Member Name Family Member Gender Family Member Status Date o f Status Description Data Source(s) Unknown Unknown Problem [facility] ([facility]) Unknown Unknown Problem [facility] ([facility] Unknown Female Encounters Encounter Providers Location Date Indications Data Source(s ) Outpatient Attender: Rashmi GÓMEZ Main Office 11/19/2020 06:45:00 AM EST [facility] ([facility]) Outpatient Attender: Trudi GÓMEZ Marlee Harris Naveed saldivary 11/09/2020 09:30:00 AM EST [facility] ([facility]) Outpatient Attender: Rashmi GÓMEZ Main Office 10/08/2020 06:45:00 AM EST [facility] ([facility]) Outpatient Attender: Noam GÓMEZ [facility] 07/12/2020 10:00:00 AM EDT [facility] ([facility]) Outpatient Attender: Elisaebt Batres/[place]/Edd/R eindl 05/27/2020 10:15:00 AM EDT [facility] ([facility] Outpatient Attender: Rashmi GÓMEZ Main Office 04/15/2020 08:15:00 AM EDT [facility] ([facility]) Outpatient Attender: Elisabet Remy RPA Gisel/[place]/Edd/R eindl 04/08/2020 09:45:00 AM EDT [facility] ([facility] Outpatient Attender: Ellen Batres/Estela/Edd/ Reindl 03/14/2020 11:00:00 AM EDT [facility] ([facility] Outpatient Attender: Noam GÓMEZ [facility] 01/10/2020 10:00:00 AM EDT [facility] ([facility]) Outpatient Attender: Rashmi GÓMEZ Main Office 10/11/2019 07:00:00 AM EST [facility] ([facility]) Immunizations Vaccine Date Status Description Data Source(s) VARICELLA-ZOSTER VIRUS GLYCOPROTEIN E,REC/AS01B ADJUVA NT/PF 07/15/2020 12:00:00 AM EDT completed [facility] Medications Medication Brand Name Start Date Product Form Dose Route Admi nistrative Instructions Pharmacy Instructions Status Indications Reaction Description Data Source(s) 10 mg 11/19/2020 12:00:00 AM EST tablet 180 TAKE TWO TABLETS BY MOUTH EVERY DAY TAKE TWO TABLETS BY MOUTH EVERY DAY SOLD: 11/19/2020 [facility] torsemide 10 MG Oral Tablet Torsemide 11/19/2020 12:00:00 AM EST ORAL active [facility] ([facility]) Spironolactone 25 MG Oral Tablet Spironolactone 11/19/2020 12:00:00 A M EST ORAL active [facility] Famotidine 40 MG Oral Tablet Famotidine 11/19/2020 12:00:00 AM EST ORAL active [facility] 25 mg 11/19/2020 12:00:00 AM EST tablet 45 TAE 1/2 TABLET BY MOUTH ONCE DAILY TAE 1/2 TABLET BY MOUTH ONCE DAILY SOLD: 11/19/2020 [facility] Magnesium Chloride 535 MG Delayed Release Oral Tablet [Mag 6 4] Mag64 11/19/2020 12:00:00 AM EST ORAL active M EDENT ([facility]) 40 mg 11/19/2020 12:00:00 AM EST tablet 90 TAKE ONE TABLET BY MOUTH AT BEDTIME TAKE ONE TABLET BY MOUTH AT BEDTIME SOLD: 11/19/2020 [facility] 137 mcg (0.1 %) 11/09/2020 12:00:00 AM EST aerosol,spray 30 SPRAY TWO SPRAYS IN ONE NOSTRIL TWICE A DAY SPRAY TWO SPRAYS IN ONE NOSTRIL TWICE A DAY SOLD: 11/09/2020 [facility] Azelastine HCL (Nasal) Azelastine HCL (Nasal) 11/09/2020 12:00:[address] active [facility] ([facility]) 20 mg 10/08/2020 12:00:00 AM EST tablet 90 TAKE ONE TABLET BY MOUTH EVERY DAY WITH EVENING MEAL TAKE ONE TABLET BY MOUTH EVERY DAY WITH EVENING MEAL S OLD: 10/08/2020 [facility] 5 mg 10/08/2020 12:00:00 AM EST tablet 90 TAKE ONE TABLET BY MOUTH EVERY DAY TAKE ONE TABLET BY MOUTH EVERY DAY SOLD: 10/08/2020 [facility] rivaroxaban 20 MG Oral Tablet [Xarelto] Xarelto 10/08/2020 12:00:0 0 AM EST ORAL active [facility] Amlodipine 5 MG Oral Tablet Amlodipine Besylate 10/08/2020 12:00:00 A M EST ORAL completed [facility] 10 mg 09/09/2020 12:00:00 AM EST tablet 90 TAKE ONE TABLET BY MOUTH EVERY DAY TAKE ONE TABLET BY MOUTH EVERY DAY SOLD: 09/10/2020 [facility] 20 mEq 08/13/2020 12:00:00 AM EDT tablet,ER particles/cry stals 180 TAKE ONE TABLET BY MOUTH TWICE A DAY TAKE ONE TABLET BY MOUTH TWICE A DAY SOLD: 11/10/2020 [facility] 20 mEq 08/13/2020 12:00:00 AM EDT tablet,ER particles/cry stals 180 TAKE ONE TABLET BY MOUTH TWICE A DAY TAKE ONE TABLET BY MOUTH TWICE A DAY SOLD: 08/14/2020 [facility] Shingrix Shingrix 07/12/2020 12:00:00 AM EDT activ e [facility] ([facility]) 25 mg 06/24/2020 12:00:00 AM EDT tablet 45 TAKE ONE-HALF TABLET BY MOUTH EVERY DAY TAKE ONE-HALF TABLET BY MOUTH EVERY DAY SOLD: 06/25/2020 [facility] Ramipril 10 MG Oral Capsule RAMIPRIL 06/24/2020 12:00:00 AM EDT capsu le 90 TAKE ONE CAPSULE BY MOUTH EVERY DAY TAKE ONE CAPSULE BY MOUTH EVERY DAY SOLD: 09/21/2020 [facility] Ramipril 10 MG Oral Capsule RAMIPRIL 06/24/2020 12:00:00 AM EDT capsu le 90 TAKE ONE CAPSULE BY MOUTH EVERY DAY TAKE ONE CAPSULE BY MOUTH EVERY DAY SOLD: 06/25/2020 [facility] 25 mg 06/24/2020 12:00:00 AM EDT tablet 45 TAKE ONE-HALF TABLET BY MOUTH EVERY DAY TAKE ONE-HALF TABLET BY MOUTH EVERY DAY SOLD: 09/21/2020 [facility] apixaban 5 MG Oral Tablet [Eliquis] Eliquis 05/29/2020 12:00:00 AM E DT ORAL completed [facility] ([facility]) 5 mg 05/29/2020 12:00:00 AM EDT tablet 180 TAKE ONE TABLET BY MOUTH TWICE A DAY TAKE ONE TABLET BY MOUTH TWICE A DAY SOLD: 05/30/2020 [facility] 5 mg 05/29/2020 12:00:00 AM EDT tablet 180 TAKE ONE TABLET BY MOUTH TWICE A DAY TAKE ONE TABLET BY MOUTH TWICE A DAY SOLD: 08/30/2020 [facility] 20 mg 05/14/2020 12:00:00 AM EDT capsule,delayed release (DR/EC) 90 TAKE ONE CAPSULE BY MOUTH EVERY DAY TAKE ONE CAPSULE BY MOUTH EVERY DAY SOLD: 08/14/2020 [facility] 20 mg 05/14/2020 12:00:00 AM EDT capsule,delayed release (DR/EC) 90 TAKE ONE CAPSULE BY MOUTH EVERY DAY TAKE ONE CAPSULE BY MOUTH EVERY DAY SOLD: 05/14/2020 [facility] 20 mg 05/14/2020 12:00:00 AM EDT capsule,delayed release (DR/EC) 90 TAKE ONE CAPSULE BY MOUTH EVERY DAY TAKE ONE CAPSULE BY MOUTH EVERY DAY SOLD: 11/10/2020 [facility] clopidogrel 75 MG Oral Tablet Clopidogrel Bisulfate 04/14/2020 1 2:00:00 AM EDT ORAL completed [facility] ([facility]) 75 mg 04/01/2020 12:00:00 AM EDT tablet 30 TAKE ONE TABLET BY MOUTH EVERY DAY TAKE ONE TABLET BY MOUTH EVERY DAY SOLD: 04/01/2020 [facility] 75 mg 04/01/2020 12:00:00 AM EDT tablet 30 TAKE ONE TABLET BY MOUTH EVERY DAY TAKE ONE TABLET BY MOUTH EVERY DAY SOLD: 04/30/2020 [facility] 20 mg 03/12/2020 12:00:00 AM EDT tablet 90 TAKE ONE TABLET BY MOUTH AT BEDTIME TAKE ONE TABLET BY MOUTH AT BEDTIME SOLD: 06/13/2020 [facility] 20 mg 03/12/2020 12:00:00 AM EDT tablet 90 TAKE ONE TABLET BY MOUTH AT BEDTIME TAKE ONE TABLET BY MOUTH AT BEDTIME SOLD: 03/14/2020 [facility] 20 mg 03/12/2020 12:00:00 AM EDT tablet 90 TAKE ONE TABLET BY MOUTH AT BEDTIME TAKE ONE TABLET BY MOUTH AT BEDTIME SOLD: 09/10/2020 [facility] 10 mg 09/06/2019 12:00:00 AM EST tablet 90 TAKE ONE TABLET BY MOUTH EVERY DAY TAKE ONE TABLET BY MOUTH EVERY DAY SOLD: 03/14/2020 [facility] 10 mg 09/06/2019 12:00:00 AM EST tablet 90 TAKE ONE TABLET BY MOUTH EVERY DAY TAKE ONE TABLET BY MOUTH EVERY DAY SOLD: 12/08/2019 [facility] 10 mg 09/06/2019 12:00:00 AM EST tablet 90 TAKE ONE TABLET BY MOUTH EVERY DAY TAKE ONE TABLET BY MOUTH EVERY DAY SOLD: 06/13/2020 [facility] 20 mEq 08/29/2019 12:00:00 AM EDT tablet,ER particles/cry stals 180 TAKE ONE TABLET BY MOUTH TWICE A DAY TAKE ONE TABLET BY MOUTH TWICE A DAY SOLD: 11/16/2019 [facility] 20 mEq 08/29/2019 12:00:00 AM EDT tablet,ER particles/cry stals 180 TAKE ONE TABLET BY MOUTH TWICE A DAY TAKE ONE TABLET BY MOUTH TWICE A DAY SOLD: 02/13/2020 [facility] 20 mEq 08/29/2019 12:00:00 AM EDT tablet,ER particles/cry stals 180 TAKE ONE TABLET BY MOUTH TWICE A DAY TAKE ONE TABLET BY MOUTH TWICE A DAY SOLD: 05/14/2020 [facility] 25 mg 06/28/2019 12:00:00 AM EDT tablet 45 TAKE 1/2 TABLET BY MOUTH ONCE DAILY TAKE 1/2 TABLET BY MOUTH ONCE DAILY SOLD: 03/26/2020 [facility] 25 mg 06/28/2019 12:00:00 AM EDT tablet 45 TAKE 1/2 TABLET BY MOUTH ONCE DAILY TAKE 1/2 TABLET BY MOUTH ONCE DAILY SOLD: 12/28/2019 [facility] 10 mg 06/28/2019 12:00:00 AM EDT capsule 90 TAKE ONE CAPSULE BY MOUTH EVERY DAY TAKE ONE CAPSULE BY MOUTH EVERY DAY SOLD: 12/28/2019 [facility] 10 mg 06/28/2019 12:00:00 AM EDT capsule 90 TAKE ONE CAPSULE BY MOUTH EVERY DAY TAKE ONE CAPSULE BY MOUTH EVERY DAY SOLD: 03/26/2020 [facility] 20 mg 05/16/2019 12:00:00 AM EDT capsule,delayed release (DR/EC) 90 TAKE ONE CAPSULE BY MOUTH EVERY DAY TAKE ONE CAPSULE BY MOUTH EVERY DAY SOLD: 11/16/2019 [facility] 20 mg 05/16/2019 12:00:00 AM EDT capsule,delayed release (DR/EC) 90 TAKE ONE CAPSULE BY MOUTH EVERY DAY TAKE ONE CAPSULE BY MOUTH EVERY DAY SOLD: 02/13/2020 [facility] 20 mg 03/10/2019 12:00:00 AM EDT tablet 90 TAKE ONE TABLET BY MOUTH AT BEDTIME TAKE ONE TABLET BY MOUTH AT BEDTIME SOLD: 12/08/2019 [facility] Insurance Providers Payer name Policy type / Coverage type Policy ID Covered republican ID Covered republican's relationship to [place] Policy [place] Plan Information [facility] [id number] SP [id number] BCBS EMPIRE [place] DIV [id number] SP [id number] MEDICARE [id number] SP [id number] EMPIRE PLAN [facility] U [id number] Self [id number] MEDICARE A [id number] Self [id number] [facility] [id number] SP [id number] BCBS EMPIRE [place] DIV [id number] SP [id number] [employer] [id number] Self [id number] Medicare Natl Gov't Servi Medicare Primary [id number] Self [id number] [employer] Commercial [id number] Self [id number] Medicare Natl Gov't Servi Medicare Primary [id number] Self [id number] [employer] Plan-[employer] Health Medigap Part B [id number] Self [id number] Medicare (Part B) Medicare Primary [id number] Self [id number] [employer] Plan-[employer] Medigap Part B [id number] Self [id number] [employer] Plan-[employer] Medigap Part B [id number] Self [id number] Medicare (Part B) Medicare Primary [id number] Self [id number] MEDICARE [id number] SP [id number] [employer] Commercial [id number] Self [id number] Medicare Natl Gov't Servi Medicare Primary [id number] Self [id number] [employer] Plan-[employer] Medigap Part B [id number] Self [id number] Medicare (Part B) Medicare Primary [id number] Self [id number] EXCELLUS BCBS [id number] Shahla YLS [id number] MEDICARE [id number] Shahla [id number] A MEDICARE PI PI EXCELLUS BCBS PI PI [employer] Plan-[employer] Medigap Part B [id number] Self [id number] Medicare (Part B) Medicare Primary [id number] Self [id number] [employer] Medigap Part B [id number] Self [id number] Medicare Natl Gov't Servi Medicare Primary [id number] Self [id number] [employer] Plan-[employer] Medigap Part B [id number] Self [id number] Medicare (Part B) Medicare Primary [id number] Self [id number] MEDICARE [id number] SP [id number] A UNITED HEALTHCARE [id number] SP [id number] BCBS EMPIRE ZAHRA DIV [id number] SP [id number] [employer] Plan-[employer] Medigap Part B [id number] Self [id number] Medicare (Part B) Medicare Primary [id number] Self [id number] [employer] Plan-[employer] Medigap Part B [id number] Self [id number] Medicare (Part B) Medicare Primary [id number] Self [id number] [employer] Plan-[employer] Medigap Part B [id number] Self [id number] Medicare (Part B) Medicare Primary [id number] Self [id number] [employer] Plan-[employer] Medigap Part B [id number] Self [id number] Medicare (Part B) Medicare Primary [id number] Self [id number] [employer] Plan-[employer] Medigap Part B [id number] Self [id number] Medicare (Part B) Medicare Primary [id number] Self [id number] UNITED HEALTHCARE O [id number] S [id number] MEDICARE C [id number] S [id number] A Medicare (Part B) Medicare Primary Self [employer] Plan-[employer] Medigap Part B Self [employer] Plan-[employer] Health Medigap Part B Self [employer] Par Medigap Part B Self Medicare - NGS Medicare Primary Self Medicare Medicare Primary Self MEDICARE UNAVAILABLE SP UNAVAILA BLE MEDICARE [id number] SP [id number] 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 - OP [id number] Problems, Conditions, and Diagnoses Code Display Name Description Problem Type Effective Dates Data Source(s) 26283955 Essential hypertension Essential hypertension Problem 01/10/2020 12:00:00 AM EDT [facility] ([facility]) [id number] Hyperlipidemia Hyperlipidemia Problem 01/10/2020 12:00: 00 AM EDT [facility] ([facility]) [id number] History of coronary artery bypass grafti ng History of coronary artery bypass grafting Problem 01/10/2020 12:00:00 AM EDT [facility] ([facility]) [id number] Atherosclerosis of coronary artery witho ut angina pectoris Atherosclerosis of coronary artery without angina pectoris Problem 01/10/2020 12:00:00 AM EDT [facility] ([facility]) Surgeries/Procedures Procedure Description Date Indications Data Source(s) ECG ROUTINE ECG W/LEAST 12 LDS W/I&R 10/08/2020 12:00: 00 AM EST [facility] ([facility]) MYOCARDIAL SPECT MULTIPLE STUDIES 05/28/2020 12:00:00 AM EDT [facility] ([facility]) CV STRS TST XERS&/OR RX CONT ECG PHYS SI&R 05/28/2020 12:00:00 AM EDT [facility] ([facility]) ECG ROUTINE ECG W/LEAST 12 LDS W/I&R 04/15/2020 12:00: 00 AM EDT [facility] ([facility]) Revascularization,Endovascular,Transluminal Stent Placement 04/01/2020 12:00:00 AM EDT [facility] ([facility] Revascularization,Endovascular,Transluminal Stent Placement 04/01/2020 12:00:00 AM EDT [facility] ([facility] Aortography Abdominal & Bilat Iliofemoral LWR Extremity Cath 04/01/2020 12:00:00 AM EDT [facility] Moderate Sedation Services; Same Phys Intl 15 Mins; PT >= 5 Years 04/01/2020 12:00:00 AM EDT [facility] Results ID Date Data Source [id number] 11/19/2020 10:34:00 AM EST [facility] ([facility]) Name Value Range Interpretation Code Description Data Alissa rce(s) Supporting Document(s) Magnesium [Mass/volume] in Serum or Plasma 0.6 mg/dL 1.8-2 .4 Below lower panic limits [facility] ([facility]) Natriuretic peptide.B prohormone N-Terminal [Mass/volu me] in Serum or Plasma 4825 pg/mL Above high normal [facility] ([facility]) ID Date Data Source [id number] 11/19/2020 10:34:00 AM EST [facility] ([facility]) Name Value Range Interpretation Code Description Data Alissa rce(s) Supporting Document(s) Blood Urea Nitrogen 21 mg/dL 7-18 Above high normal [facility] ([facility]) Glucose, Fasting 124 mg/dL 70-100 Above high normal M [facility] ([facility]) Sodium Level 134 meq/L 136-145 Below low normal [facility] ([facility]) Creatinine For GFR 1.11 mg/dL 0.70-1.30 Normal (applies to non -numeric results) [facility] ([facility]) Glomerular Filtration Rate Laboratory test result Normal (applies to non- numeric results) [facility] ([facility]) <content>Units are mL/min/1.73 m2</content>
<content></content>
<content>Chronic Kidney Disease Staging per NKF:</content>
<content></content>
<content>Stage I & II GFR >=60 Normal to Mildly Decreased</content>
<content>Stage III GFR 30- 59 Moderately Decreased</content>
<content>Stage IV GFR 15-29 Severely Decreased</content>
<content>Stage V GFR <15 Very Little GFR Left</content>
<content>ESRD GFR <15 on WELFARE CASE WORKER</content>
<content></content> Chloride Level 102 meq/L 98-107 Normal (applies to non-numeric r esults) [facility] Potassium Serum 3.6 meq/L 3.5-5.1 Normal (applies to non-numeric results) [facility] ([facility]) Carbon Dioxide Level 22 meq/L 21-32 Normal (applies to non-num giovana results) [facility] ([facility]) Anion Gap 10 meq/L 8-16 Normal (applies to non-numeric resul ts) [facility] ([facility]) Calcium Level 7.6 mg/dL 8.8-10.2 Below low normal [facility] ([facility]) ID Date Data Source [id number] 11/19/2020 10:34:00 AM EST [facility] ([facility]) Name Value Range Interpretation Code Description Data Alissa rce(s) Supporting Document(s) White Blood Count 7.9 10 4.0-10.0 Normal (applies to non-numeri c results) [facility] ([facility]) Red Blood Count 3.85 10 4.30-6.10 Below low normal [facility] ([facility]) Hemoglobin 10.1 g/dL 13.5-17.5 Below low normal [facility] ( [facility]) Mean Corpuscular Hemoglobin 26.2 pg 27.0-33.0 Below low normal [facility] ([facility]) Hematocrit 32.5 % 42.0-52.0 Below low normal [facility] ( [facility]) Mean Corpuscular Volume 84.4 fl 80.0-96.0 Normal ( applies to non-numeric results) [facility] ([facility]) Red Cell Distribution Width 19.5 % 11.5-14.5 Above high normal [facility] ([facility]) Mean Corpuscular HGB Conc 31.1 g/dL 32.0-36.5 Below low normal [facility] ([facility]) Platelet Count, Automated 205 10 150-450 Normal (applies to non-numeric results) [facility] ([facility]) Nucleated Red Blood Cell % 0.0 % 0-0 Normal (applies to n on-numeric results) [facility] ([facility]) ID Date Data Source [id number] 11/19/2020 10:34:00 AM EST [facility] ([facility]) Name Value Range Interpretation Code Description Data Alissa rce(s) Supporting Document(s) Magnesium [Mass/volume] in Serum or Plasma 0.6 mg/dL 1.8-2 .4 Below lower panic limits [facility] ([facility]) Natriuretic peptide.B prohormone N-Terminal [Mass/volu me] in Serum or Plasma 4825 pg/mL [facility] ([employer] [facility]) ID Date Data Source [id number] 11/19/2020 10:34:00 AM EST [facility] ([facility]) Name Value Range Interpretation Code Description Data Alissa rce(s) Supporting Document(s) White Blood Count 7.9 10 4.0-10.0 [facility] ([facility]) Red Blood Count 3.85 10 4.30-6.10 [facility] ([facility]) Hematocrit 32.5 % 42.0-52.0 [facility] ([facility]) Hemoglobin 10.1 g/dL 13.5-17.5 [facility] ([facility]) Mean Corpuscular Volume 84.4 fl 80.0-96.0 M EDENT ([facility]) Red Cell Distribution Width 19.5 % 11.5-14.5 [facility] ([facility]) Mean Corpuscular Hemoglobin 26.2 pg 27.0-33.0 [facility] ([facility]) Mean Corpuscular HGB Conc 31.1 g/dL 32.0-36.5 [facility]) Nucleated Red Blood Cell % 0.0 % 0-0 [facility] ([facility]) Platelet Count, Automated 205 10 150-450 [facility]) ID Date Data Source [id number] 11/19/2020 10:34:00 AM EST [facility] ([facility]) Name Value Range Interpretation Code Description Data Alissa rce(s) Supporting Document(s) Glucose, Fasting 124 mg/dL 70-100 [facility] Creatinine For GFR 1.11 mg/dL 0.70-1.30 [facility] ([facility]) Blood Urea Nitrogen 21 mg/dL 7-18 [facility] ([facility]) Sodium Level 134 meq/L 136-145 [facility] ([facility]) Glomerular Filtration Rate Laboratory test result [facility]) <content>Units are mL/min/1.73 m2</content>
<content></content>
<content>Chronic Kidney Disease Staging per NKF:</content>
<content></content>
<content>Stage I & II GFR >=60 Normal to Mildly Decreased</content>
<content>Stage III GFR 30- 59 Moderately Decreased</content>
<content>Stage IV GFR 15-29 Severely Decreased</content>
<content>Stage V GFR <15 Very Little GFR Left</content>
<content>ESRD GFR <15 on WELFARE CASE WORKER</content>
<content></content> Potassium Serum 3.6 meq/L 3.5-5.1 [facility] ([facility]) Anion Gap 10 meq/L 8-16 [facility] Chloride Level 102 meq/L 98-107 [facility] ([facility]) Carbon Dioxide Level 22 meq/L 21-32 [facility] ([facility]) Calcium Level 7.6 mg/dL 8.8-10.2 [facility] ([facility]) ID Date Data Source [id number] 11/09/2020 12:00:00 AM EST [facility] Name Value Range Interpretation Code Description Data Alissa rce(s) Supporting Document(s) SARS coronavirus 2 Ag Negative [facility] This lab was ordered by [facility] and reported by [facility]. ID Date Data Source [id number] 10/02/2020 08:27:00 AM EST [facility] ([facility]) Name Value Range Interpretation Code Description Data Alissa rce(s) Supporting Document(s) Cholesterol Level 145 mg/dL Normal (applies to non-numeri c results) [facility]) Triglycerides Level 161 mg/dL Above high normal [facility] ([facility]) Non-HDL-C 116 mg/dL Normal (applies to non-numeric resul ts) [facility] ([facility]) HDL Cholesterol 29 mg/dL Below low normal [facility] ([facility]) LDL Cholesterol 84 mg/dL Normal (applies to non-numeric results) [facility]) Cholesterol Risk Ratio 5.000 Normal (applies to non-n umeric results) [facility]) ID Date Data Source [id number] 10/02/2020 08:27:00 AM EST [facility]) Name Value Range Interpretation Code Description Data Alissa rce(s) Supporting Document(s) Glucose, Fasting 78 mg/dL 70-100 Normal (applies to non-numeric results) [facility] ([facility], ) Creatinine For GFR 0.85 mg/dL 0.70-1.30 Normal (applies to non -numeric results) [facility] ([facility], ) Blood Urea Nitrogen 16 mg/dL 7-18 Normal (applies to non-nume ayaz results) [facility] ([facility], ) Sodium Level 137 meq/L 136-145 Normal (applies to non-numeric res ults) [facility] ([facility]) Potassium Serum 3.9 meq/L 3.5-5.1 Normal (applies to non-numeric results) [facility] ([facility]) Glomerular Filtration Rate Laboratory test result Normal (applies to non- numeric results) [facility] ([facility], ) <content>Units are mL/min/1.73 m2</content>
<content></content>
<content>Chronic Kidney Disease Staging per NKF:</content>
<content></content>
<content>Stage I & II GFR >=60 Normal to Mildly Decreased</content>
<content>Stage III GFR 30- 59 Moderately Decreased</content>
<content>Stage IV GFR 15-29 Severely Decreased</content>
<content>Stage V GFR <15 Very Little GFR Left</content>
<content>ESRD GFR <15 on WELFARE CASE WORKER</content>
<content></content> Carbon Dioxide Level 26 meq/L 21-32 Normal (applies to non-num giovana results) [facility] ([facility], ) Chloride Level 104 meq/L 98-107 Normal (applies to non-numeric r esults) [facility] ([facility]) Anion Gap 7 meq/L 8-16 Below low normal [facility] ( [facility], ) Calcium Level 8.3 mg/dL 8.8-10.2 Below low normal [facility] ([facility], ) Ast/Sgot 28 U/L 7-37 Normal (applies to non-numeric resul ts) [facility], ) Bilirubin,Total 0.7 mg/dL 0.2-1.0 Normal (applies to non-numeric results) [facility] ([facility], ) Alt/SGPT 18 U/L 12-78 Normal (applies to non-numeric resul ts) [facility] ([facility]) Alkaline Phosphatase 196 U/L 45-117 Above high normal [facility] ([facility], ) Total Protein 7.4 GM/DL 6.4-8.2 Normal (applies to non-numeric re sults) [facility] ([facility], ) Albumin/Globulin Ratio 0.9 Normal (applies to non-n umeric results) [facility] ([facility]) Albumin 3.4 GM/DL 3.2-5.2 Normal (applies to non-numeric resul ts) [facility] ([facility]) ID Date Data Source [id number] 10/02/2020 08:27:00 AM EST [facility] Name Value Range Interpretation Code Description Data Alissa rce(s) Supporting Document(s) Triglycerides Level 161 mg/dL [facility] ([facility]) Cholesterol Level 145 mg/dL [facility] ([facility]) HDL Cholesterol 29 mg/dL [facility] ([facility]) LDL Cholesterol 84 mg/dL [facility] ([facility]) Non-HDL-C 116 mg/dL [facility] Cholesterol Risk Ratio 5.000 [facility] ([facility]) ID Date Data Source [id number] 10/02/2020 08:27:00 AM EST [facility] ([facility]) Name Value Range Interpretation Code Description Data Alissa rce(s) Supporting Document(s) Glucose, Fasting 78 mg/dL 70-100 [facility] ([facility]) Blood Urea Nitrogen 16 mg/dL 7-18 [facility] ([facility]) Glomerular Filtration Rate Laboratory test [facility]) <content>Units are mL/min/1.73 m2</content>
<content></content>
<content>Chronic Kidney Disease Staging per NKF:</content>
<content></content>
<content>Stage I & II GFR >=60 Normal to Mildly Decreased</content>
<content>Stage III GFR 30- 59 Moderately Decreased</content>
<content>Stage IV GFR 15-29 Severely Decreased</content>
<content>Stage V GFR <15 Very Little GFR Left</content>
<content>ESRD GFR <15 on WELFARE CASE WORKER</content>
<content></content> Creatinine For GFR 0.85 mg/dL 0.70-1.30 [facility] ([facility]) Potassium Serum 3.9 meq/L 3.5-5.1 [facility] ([facility]) Sodium Level 137 meq/L 136-145 [facility] ([facility]) Chloride Level 104 meq/L 98-107 [facility] ([facility]) Carbon Dioxide Level 26 meq/L 21-32 [facility] ([facility]) Anion Gap 7 meq/L 8-16 [facility] ([facility]) Alt/SGPT 18 U/L 12-78 [facility] ([facility]) Ast/Sgot 28 U/L 7-37 [facility] ([facility]) Calcium Level 8.3 mg/dL 8.8-10.2 [facility] ([facility]) Bilirubin,Total 0.7 mg/dL 0.2-1.0 [facility] ([facility]) Alkaline Phosphatase 196 U/L 45-117 [facility] ([facility]) Albumin/Globulin Ratio 0.9 [facility] ([facility]) Albumin 3.4 GM/DL 3.2-5.2 [facility] ([facility]) Total Protein 7.4 GM/DL 6.4-8.2 [facility] ([facility]) ID Date Data Source [id number] 06/25/2020 09:32:00 AM EDT [facility] ([facility]) Name Value Range Interpretation Code Description Data Alissa rce(s) Supporting Document(s) Red Blood Count 4.36 10 4.30-6.10 [facility] ([facility]) White Blood Count 7.0 10 4.0-10.0 [facility] ([facility]) Mean Corpuscular Volume 86.2 fl 80.0-96.0 M EDENT ([facility]) Hematocrit 37.6 % 42.0-52.0 [facility] ([facility]) Hemoglobin 12.0 g/dL 13.5-17.5 [facility] ([facility]) Mean Corpuscular HGB Conc 31.9 g/dL 32.0-36.5 [facility] ([facility]) Mean Corpuscular Hemoglobin 27.5 pg 27.0-33.0 [facility] ([facility]) Platelet Count, Automated 215 10 150-450 [facility] ([facility]) Nucleated Red Blood Cell % 0.0 % 0-0 [facility] ([facility]) Red Cell Distribution Width 15.7 % 11.5-14.5 [facility] ([facility]) ID Date Data Source [id number] 04/07/2020 08:52:00 AM EDT [facility] Name Value Range Interpretation Code Description Data Alissa rce(s) Supporting Document(s) Glucose, Fasting 118 mg/dL 70-100 [facility] ([facility] Blood Urea Nitrogen 10 mg/dL 7-18 [facility] ([facility]) Creatinine For GFR 0.99 mg/dL 0.70-1.30 [facility] ([facility]) Glomerular Filtration Rate Laboratory [facility]) <content>Units are mL/min/1.73 m2</content>
<content></content>
<content>Chronic Kidney Disease Staging per NKF:</content>
<content></content>
<content>Stage I & II GFR >=60 Normal to Mildly Decreased</content>
<content>Stage III GFR 30- 59 Moderately Decreased</content>
<content>Stage IV GFR 15-29 Severely Decreased</content>
<content>Stage V GFR <15 Very Little GFR Left</content>
<content>ESRD GFR <15 on WELFARE CASE WORKER</content>
<content></content> Sodium Level 136 meq/L 136-145 [facility] ([facility]) Chloride Level 97 meq/L 98-107 [facility] ([facility]) Potassium Serum 3.0 meq/L 3.5-5.1 [facility] ([facility]) Anion Gap 13 meq/L 8-16 [facility] Carbon Dioxide Level 26 meq/L 21-32 [facility] ([facility]) Calcium Level 6.5 mg/dL 8.8-10.2 [facility] ([facility]) ID Date Data Source [id number] 04/01/2020 06:57:00 AM EDT [facility] ([facility], ) Name Value Range Interpretation Code Description Data Alissa rce(s) Supporting Document(s) Glucose, Fasting 94 mg/dL 70-100 Normal (applies to non-numeric results) [facility] ([facility]) Blood Urea Nitrogen 14 mg/dL 7-18 Normal (applies to non-nume ayaz results) [facility] ([facility]) Glomerular Filtration Rate Laboratory test result Normal (applies to non- numeric results) [facility] ([facility]) <content>Units are mL/min/1.73 m2</content>
<content></content>
<content>Chronic Kidney Disease Staging per NKF:</content>
<content></content>
<content>Stage I & II GFR >=60 Normal to Mildly Decreased</content>
<content>Stage III GFR 30- 59 Moderately Decreased</content>
<content>Stage IV GFR 15-29 Severely Decreased</content>
<content>Stage V GFR <15 Very Little GFR Left</content>
<content>ESRD GFR <15 on WELFARE CASE WORKER</content>
<content></content> Creatinine For GFR 0.90 mg/dL 0.70-1.30 Normal (applies to non -numeric results) [facility] ([facility], ) Sodium Level 135 meq/L 136-145 Below low normal [facility] ([facility]) Potassium Serum 3.7 meq/L 3.5-5.1 Normal (applies to non-numeric results) [facility] ([facility]) Testing was performed on a SLIGHTLY hemo lyzed specimen. Suggest recollection of specimen for more accurate test results. Chloride Level 100 meq/L 98-107 Normal (applies to non-numeric r esults) [facility] ([facility]) Calcium Level 6.7 mg/dL 8.8-10.2 Below low normal MED [facility] ([facility]) Carbon Dioxide Level 27 meq/L 21-32 Normal (applies to non-num giovana results) [facility] ([facility]) Anion Gap 8 meq/L 8-16 Normal (applies to non-numeric resul ts) [facility] ([facility]) ID Date Data Source [id number] 10/11/2019 08:49:00 AM EST [facility] ([facility]) Name Value Range Interpretation Code Description Data Alissa rce(s) Supporting Document(s) Glucose, Fasting 111 mg/dL 70-100 [facility] Creatinine For GFR 1.13 mg/dL 0.70-1.30 [facility] ([facility]) Glomerular Filtration Rate Laboratory test result [facility] ([facility]) <content>Units are mL/min/1.73 m2</content>
<content></content>
<content>Chronic Kidney Disease Staging per NKF:</content>
<content></content>
<content>Stage I & II GFR >=60 Normal to Mildly Decreased</content>
<content>Stage III GFR 30- 59 Moderately Decreased</content>
<content>Stage IV GFR 15-29 Severely Decreased</content>
<content>Stage V GFR <15 Very Little GFR Left</content>
<content>ESRD GFR <15 on WELFARE CASE WORKER</content>
<content></content> Blood Urea Nitrogen 17 mg/dL 7-18 [facility] ([facility]) Sodium Level 133 meq/L 136-145 [facility] ([facility]) Chloride Level 99 meq/L 98-107 [facility] ([facility]) Potassium Serum 4.9 meq/L 3.5-5.1 [facility] ([facility]) Carbon Dioxide Level 22 meq/L 21-32 [facility] ([facility]) Anion Gap 12 meq/L 8-16 [facility] Calcium Level 8.3 mg/dL 8.8-10.2 [facility] ([facility]) Procedure Vital Signs ID Date Data Source UNK Name Value Range Interpretation Code Description Data Source(s) Body surface area Derived from formula 2.14 m2 2.14 m2 [facility] Body weight 87.772 kg 87.772 kg [facility] ([facility]) [place] body weight 190 [lb_av] 190 [lb_av] [facility] ([facility]) Body mass index (BMI) [Ratio] 24.8 kg/m2 24.8 k g/m2 [facility] ([facility]) Body weight 193.50 [lb_av] 193.50 [lb_av] [facility] ([facility]) Body height 74 [in_i] 74 [in_i] [facility] 6'2" Diastolic blood pressure 46 mm[Hg] 46 mm[Hg] [facility] ([facility]) Systolic blood pressure 98 mm[Hg] 98 mm[Hg] M [facility] ([facility]) Heart rate 84 /min 84 /min [facility] ([facility]) Irregular Body mass index (BMI) [Ratio] 23.9 kg/m2 23.9 k g/m2 [facility] ([facility]) Body height 74 [in_i] 74 [in_i] [facility] ([facility]) 6'2" Body weight 186.00 [lb_av] 186.00 [lb_av] [facility] ([facility]) Diastolic blood pressure 64 mm[Hg] 64 mm[Hg] [facility] ([facility]) sitting, regular cuff Systolic blood pressure 142 mm[Hg] 142 mm[Hg] [facility] sitting, regular cuff Respiratory rate 16 /min 16 /min [facility] ( [facility]) Body weight 180.00 [lb_av] 180.00 [lb_av] [facility] T ([facility] Body temperature 96.2 [degF] 96.2 [degF] [facility] ([facility]) Oxygen saturation in Arterial blood by Pulse oximetry 95 % 95 % [facility] ([facility], [facility]) Respiratory rate 18 /min 18 /min [facility] ( [facility]) Heart rate 78 /min 78 /min [facility] ([facility]) Diastolic blood pressure 77 mm[Hg] 77 mm[Hg] [facility] ([facility]) Systolic blood pressure 165 mm[Hg] 165 mm[Hg] [facility] ([facility]) Diastolic blood pressure 80 mm[Hg] 80 mm[Hg] [facility] ([facility]) sitting Systolic blood pressure 156 mm[Hg] 156 mm[Hg] [facility] sitting Diastolic blood pressure 78 mm[Hg] 78 mm[Hg] [facility] ([facility]) sitting, regular cuff Systolic blood pressure 156 mm[Hg] 156 mm[Hg] [facility]) sitting, regular cuff Respiratory rate 16 /min 16 /min [facility] ( [facility]) Heart rate 88 /min 88 /min [facility] ([facility]) Regular Body mass index (BMI) [Ratio] 23.5 kg/m2 23.5 k g/m2 [facility] ([facility]) Body height 74 [in_i] 74 [in_i] [facility] ([facility]) 6'2" Body weight 183.00 [lb_av] 183.00 [lb_av] [facility] T ([facility]) [place] body weight 184 [lb_av] 184 [lb_av] [facility] ([facility]) Oxygen saturation in Arterial blood by Pulse oximetry 98 % 98 % [facility] ([facility]) Body temperature 98.7 [degF] 98.7 [degF] [facility] ([facility]) Respiratory rate 22 /min 22 /min [facility] ( [facility]) Heart rate 81 /min 81 /min [facility] ([facility]) Body mass index (BMI) [Ratio] 24.4 kg/m2 24.4 k g/m2 [facility] ([facility]) Body weight 185.12 [lb_av] 185.12 [lb_av] [facility] ([facility]) Body height 73 [in_i] 73 [in_i] [facility] ([facility] 6'1" Diastolic blood pressure 88 mm[Hg] 88 mm[Hg] [facility] ([facility]) Systolic blood pressure 128 mm[Hg] 128 mm[Hg] [facility] ([facility]) Body surface area Derived from formula 2.11 m2 2.11 m2 [facility] ([facility]) Body weight 84.483 kg 84.483 kg [facility] ([facility]) [place] body weight 190 [lb_av] 190 [lb_av] [facility] Body mass index (BMI) [Ratio] 23.9 kg/m2 23.9 k g/m2 [facility] ([facility]) Body weight 186.25 [lb_av] 186.25 [lb_av] [facility]) Body height 74 [in_i] 74 [in_i] [facility] ([facility]) 6'2" Diastolic blood pressure 70 mm[Hg] 70 mm[Hg] [facility] ([facility]) Systolic blood pressure 122 mm[Hg] 122 mm[Hg] [facility] ([facility]) Diastolic blood pressure 76 mm[Hg] 76 mm[Hg] [facility] ([facility]) sitting Systolic blood pressure 132 mm[Hg] 132 mm[Hg] [facility] ([facility]) sitting Diastolic blood pressure 76 mm[Hg] 76 mm[Hg] [facility] ([facility]) sitting, regular cuff Systolic blood pressure 136 mm[Hg] 136 mm[Hg] [facility] sitting, regular cuff Respiratory rate 16 /min 16 /min [facility] ( [facility]) Heart rate 84 /min 84 /min [facility] ([facility]) Regular Body mass index (BMI) [Ratio] 23.8 kg/m2 23.8 k g/m2 [facility] ([facility]) Body height 74 [in_i] 74 [in_i] [facility] ([facility]) 6'2" Body weight 185.00 [lb_av] 185.00 [lb_av] [facility] ([facility]) Body weight 86.184 kg 86.184 kg [facility] ([facility]) Body mass index (BMI) [Ratio] 24.4 kg/m2 24.4 k g/m2 [facility] ([facility]) Body weight 190.00 [lb_av] 190.00 [lb_av] [facility] ([facility]) Body height 74 [in_i] 74 [in_i] [facility] 6'2" Diastolic blood pressure 70 mm[Hg] 70 mm[Hg] [facility] ([facility]) Systolic blood pressure 150 mm[Hg] 150 mm[Hg] [facility] ([facility]) Body weight 88.962 kg 88.962 kg [facility] ([facility]) Body mass index (BMI) [Ratio] 25.2 kg/m2 25.2 k g/m2 [facility] ([facility]) Body weight 196.12 [lb_av] 196.12 [lb_av] [facility] ([facility]) Body height 74 [in_i] 74 [in_i] [facility] 6'2" Diastolic blood pressure 82 mm[Hg] 82 mm[Hg] [facility] ([facility]) Systolic blood pressure 168 mm[Hg] 168 mm[Hg] [facility] ([facility] ) [place] body weight 184 [lb_av] 184 [lb_av] [facility] T ([facility]) Oxygen saturation in Arterial blood by Pulse oximetry 99 % 99 % [facility] ([facility]) Body temperature 98.6 [degF] 98.6 [degF] [facility] ([facility]) Respiratory rate 18 /min 18 /min [facility] ( [facility]) Heart rate 62 /min 62 /min [facility] ([facility]) Body mass index (BMI) [Ratio] 26.0 kg/m2 26.0 k g/m2 [facility] ([facility]) Body weight 197.00 [lb_av] 197.00 [lb_av] [facility] ([facility]) Body height 73 [in_i] 73 [in_i] [facility] ([facility]) 6'1" Diastolic blood pressure 82 mm[Hg] 82 mm[Hg] [facility] ([facility]) Systolic blood pressure 126 mm[Hg] 126 mm[Hg] [facility] Diastolic blood pressure 68 mm[Hg] 68 mm[Hg] [facility] ([facility]) Sitting, regular cuff Systolic blood pressure 134 mm[Hg] 134 mm[Hg] [facility] Sitting, regular cuff Respiratory rate 16 /min 16 /min [facility] ( [facility]) Heart rate 76 /min 76 /min [facility] ([facility] Regular Body mass index (BMI) [Ratio] 25.0 kg/m2 25.0 k g/m2 [facility] ([facility]) Body height 74 [in_i] 74 [in_i] [facility] ([facility] 6'2" Body weight 195.00 [lb_av] 195.00 [lb_av] [facility] ([facility])
[2020-12-03] MEDS ORDERED: MAGN64TASA PO (15:18)
[2020-12-03] MEDS ORDERED: AMLO1TAB24 (15:18)
[2020-12-03] MEDS ORDERED: POTA20TA6 (15:18)
[2020-12-03] MEDS ORDERED: TORS10TA3 PO (15:18)
[2020-12-03] MEDS ORDERED: AZEL1SPR3 NARES (15:18)
[2020-12-03] MEDS ORDERED: XARE20TA PO (15:18)
[2020-12-03] MEDS ORDERED: SPIR-10 PO (15:18)
[2020-12-03] MEDS ORDERED: FAMO40TA3 PO (15:18)
[2020-12-03] MEDS ORDERED: PANTOPRAZOLE SODIUM 40 MG in D5W 50 ML IV SCH (15:30)
[2020-12-03] MEDS ORDERED: PANTOPRAZOLE 40MG VIAL (C9113 PER 1) IV ONE (15:30)
--- OUTSIDE RECORDS SUMMARY | 2020-12-03 15:39 | CCD ---
Author Author [facility] Organization [facility] Address Unknown Phone Unavailable Care Team Providers Care Maintenance Helper Utility Engineer Name Role Phone Bhavna Doe MD Unavailable [...] Unavailable Unavailable SymenoMaxine neal PA Unavailable Unavailable iFnnenoMaxine neal PA Unavailable Unavailable FinnenoMaxine neal PA [...] is protected by Article 27-F of the [facility] Public Health law. If you continue you may have access to information: Regarding HIV / AIDS; Provided by facilities licensed or operated by the [facility] Office of Mental Health; or Provided by the [facility] Office for People With Developmental Disabilities. If such information is present, then the following [facility] mandated warning applies: This information has been [...] law may result in a fine or halfway sentence or both. A general authorization for the release of medical or other information is NOT sufficient authorization for further disc losure. Allergies and Adverse Reactions Type Description Substance Reaction Status Data Source(s ) Drug Class PENICILLINS Penicillin [facility] Family History Family Member Name Family Member Gender Family Member Status Date o f Status Description Data Source(s) Unknown Unknown Problem [facility] ([facility]) Unknown Unknown Problem [facility] ([facility] Unknown Female Encounters Encounter Providers Location Date Indications Data Source(s ) Outpatient Attender: Rashmi GÓMEZ Main Office 11/19/2020 06:45:00 AM EST [facility] ([facility]) Outpatient Attender: Trudi GÓMEZ Marlee Harris Naveed saldivary 11/09/2020 09:30:00 AM EST [facility] ([facility]) Outpatient Attender: Rashmi GÓMEZ Main Office 10/08/2020 06:45:00 AM EST [facility] ([facility]) Outpatient Attender: Noam GÓMEZ [facility] 07/12/2020 10:00:00 AM EDT MED[facility] ([facility]) Outpatient Attender: Elisabet Batres/Farson/Edd/R eindl 05/27/2020 10:15:00 AM EDT [facility] ([facility] Outpatient Attender: Rashmi GÓMEZ Main Office 04/15/2020 08:15:00 AM EDT MED[facility] ([facility]) Outpatient Attender: Elisabet Remy RPA Gisel/Farson/Edd/R eindl 04/08/2020 09:45:00 AM EDT [facility] ([facility]) Outpatient Attender: Ellen Batres/Estela/Edd/ Reindl 03/14/2020 11:00:00 AM EDT [facility] ([facility] Outpatient Attender: Noam GÓMEZ [facility] 01/10/2020 10:00:00 AM EDT MED[facility] ([facility]) Outpatient Attender: Rashmi GÓMEZ Main Office 10/11/2019 07:00:00 AM EST MED[facility] ([facility]) Immunizations Vaccine Date Status Description Data Source(s) [...] EST ORAL active [facility] ([facility]) Spironolactone 25 MG Oral Tablet Spironolactone 11/19/2020 12:00:00 A M EST ORAL active [facility] ([facility]) Famotidine 40 MG Oral Tablet Famotidine 11/19/2020 12:00:00 AM EST ORAL active [facility] 25 mg 11/19/2020 12:00:00 AM EST tablet 45 TAE 1/2 TABLET BY MOUTH ONCE DAILY TAE 1/2 TABLET BY MOUTH ONCE DAILY SOLD: 11/19/2020 [facility] Magnesium Chloride 535 MG Delayed Release Oral Tablet [Mag 6 4] Mag64 11/19/2020 12:00:00 AM EST ORAL active M EDENT ([facility]) 40 mg 11/19/2020 12:00:00 AM EST tablet [...] 11/09/2020 12:00:[address] active MED[facility] ([facility]) 20 mg 10/08/2020 12:00:00 AM EST tablet [...] 12:00:0 0 AM EST ORAL active [facility] ([facility]) Amlodipine 5 MG Oral Tablet Amlodipine Besylate 10/08/2020 12:00:00 A M EST ORAL completed [facility] ([facility]) 10 mg 09/09/2020 12:00:00 AM EST tablet [...] AM EDT activ e MED[facility] ([facility]) 25 mg 06/24/2020 12:00:00 AM EDT tablet [...] ORAL completed [facility] ([facility]) 5 mg 05/29/2020 12:00:00 AM EDT tablet [...] CAPSULE BY MOUTH EVERY DAY SOLD: 05/14/2020 [facility] 20 mg 05/14/2020 12:00:00 AM EDT capsule,delayed release (DR/EC) 90 TAKE ONE CAPSULE BY MOUTH EVERY DAY TAKE ONE CAPSULE BY MOUTH EVERY DAY SOLD: 11/10/2020 [facility] clopidogrel 75 MG Oral Tablet Clopidogrel Bisulfate 04/14/2020 1 2:00:00 AM EDT ORAL completed MED[facility] ([facility]) 75 mg 04/01/2020 12:00:00 AM EDT tablet [...] type / Coverage type Policy ID Covered constitution party ID Covered constitution party's relationship to hol[place] Policy [place] Plan Information [facility] [id number] SP [id number] BCBS EMPIRE ZAHRA DIV [id number] SP [id number] MEDICARE [id number] SP [id number] EMPIRE PLAN [facility] U [id number] Self [id number] MEDICARE A [id number] Self [id number] [facility] [id number] SP [id number] BCBS EMPIRE ZAHRA DIV [id number] SP [id number] [employer] [place] Commercial [id number] Self [id number] Medicare Natl Gov't Servi Medicare Primary [id number] Self [id number] [employer] [place] Commercial [id number] Self [id number] Medicare [place]l Gov't Servi Medicare Primary [id number] Self [id number] [place] Plan-United Health Medigap Part B [id number] Self [id number] Medicare (Part B) Medicare Primary [id number] Self [id number] [place] Plan-United Health Medigap Part B [id number] Self [id number] [place] Plan-United Health Medigap Part B [id number] Self [id number] Medicare (Part B) Medicare Primary [id number] Self [id number] MEDICARE [id number] SP [id number] A [employer] [place] Commercial [id number] Self [id number] Medicare Natl Gov't Servi Medicare Primary [id number] Self [id number] [place] Plan-United Health Medigap Part B [id number] Self [id number] Medicare (Part B) Medicare Primary [id number] Self [id number] EXCELLUS BCBS [id number] Shahla YLS [id number] MEDICARE [id number] Shahla [id number] A MEDICARE PI PI EXCELLUS BCBS PI PI [place] Plan-United Health Medigap Part B [id number] Self [id number] Medicare (Part B) Medicare Primary [id number] Self [id number] [employer] [place] Medigap Part B [id number] Self [id number] Medicare Natl Gov't Servi Medicare Primary [id number] Self [id number] [place] Plan-United Health Medigap Part B [id number] Self [id number] Medicare (Part B) Medicare Primary [id number] Self [id number] MEDICARE [id number] SP [id number] A UNITED HEALTHCARE [id number] SP [id number] BCBS EMPIRE ZAHRA DIV [id number] SP [id number] [place] Plan-United Health Medigap Part B [id number] Self [id number] Medicare (Part B) Medicare Primary [id number] Self [id number] [place] Plan-[employer] Health Medigap Part B [id number] Self [id number] Medicare (Part B) Medicare Primary [id number] Self [id number] [place] Plan-[employer] Health Medigap Part B [id number] Self [id number] Medicare (Part B) Medicare Primary [id number] Self [id number] [place] Plan-[employer] Health Medigap Part B [id number] Self [id number] Medicare (Part B) Medicare Primary [id number] Self [id number] [place] Plan-[employer] Health Medigap Part B [id number] Self [id number] Medicare (Part B) Medicare Primary [id number] Self [id number] UNITED HEALTHCARE O [id number] S [id number] MEDICARE C [id number] S [id number] A Medicare (Part B) Medicare Primary Self [place] Plan-[employer] Health Medigap Part B Self [place] Plan-[employer] Health Medigap Part B Self [facility] [place] Par Medigap Part B Self Medicare - NGS Medicare Primary Self Medicare Medicare Primary Self MEDICARE UNAVAILABLE SP UNAVAILA BLE MEDICARE [id number] SP [id number] 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 - OP [id number] Problems, Conditions, and Diagnoses Code Display Name Description Problem Type Effective Dates Data Source(s) 36163354 Essential hypertension Essential hypertension Problem 01/10/2020 12:00:00 AM EDT MEDENT ([facility]) [id number] Hyperlipidemia Hyperlipidemia Problem 01/10/2020 12:00: 00 AM EDT MED[facility] ([facility]) [id number] History of coronary artery bypass grafti ng History of coronary artery bypass grafting Problem 01/10/2020 12:00:00 AM EDT MED[facility] ([facility]) [id number] Atherosclerosis of coronary artery witho ut angina pectoris Atherosclerosis of coronary artery without angina pectoris Problem 01/10/2020 12:00:00 AM EDT MED[facility] ([facility]) Surgeries/Procedures Procedure Description Date Indications Data Source(s) ECG ROUTINE ECG W/LEAST 12 LDS W/I&R 10/08/2020 12:00: 00 AM EST MED[facility] ([facility]) MYOCARDIAL SPECT MULTIPLE STUDIES 05/28/2020 12:00:00 AM EDT MED[facility] ([facility]) CV STRS TST XERS&/OR RX CONT ECG PHYS SI&R 05/28/2020 12:00:00 AM EDT [facility] ([facility]) ECG ROUTINE ECG W/LEAST 12 LDS W/I&R 04/15/2020 12:00: 00 AM EDT MED[facility] ([facility]) Revascularization,Endovascular,Transluminal Stent Placement 04/01/2020 12:00:00 AM EDT [facility] ([facility] Revascularization,Endovascular,Transluminal Stent Placement 04/01/2020 12:00:00 AM EDT [facility] ([facility] Aortography Abdominal & Bilat Iliofemoral LWR Extremity Cath 04/01/2020 12:00:00 AM EDT [facility] Moderate Sedation Services; Same Phys Intl 15 Mins; PT >= 5 Years 04/01/2020 12:00:00 AM EDT [facility] Results ID Date Data Source [id number] 11/19/2020 10:34:00 AM EST MEDENT ([facility]) Name Value Range Interpretation Code Description Data Alissa rce(s) Supporting Document(s) Magnesium [Mass/volume] in Serum or Plasma 0.6 mg/dL 1.8-2 .4 Below lower panic limits MED[facility] ([facility]) Natriuretic peptide.B prohormone N-Terminal [Mass/volu me] in Serum or Plasma 4825 pg/mL Above high normal MED[facility] ([facility]) ID Date Data Source [id number] 11/19/2020 10:34:00 AM EST MEDENT ([facility]) Name Value Range Interpretation Code Description Data Alissa rce(s) Supporting Document(s) Blood Urea Nitrogen 21 mg/dL 7-18 Above high normal MED[facility] ([facility]) Glucose, Fasting 124 mg/dL 70-100 Above high normal M EDENT ([facility]) Sodium Level 134 meq/L 136-145 Below low normal [facility] ([facility]) Creatinine For GFR 1.11 mg/dL 0.70-1.30 Normal (applies to non -numeric results) [facility] ([facility]) Glomerular Filtration Rate Laboratory test result Normal (applies to non- numeric results) [facility] ([facility]) <content>Units are mL/min/1.73 m2</content>
<content></content>
<content>Chronic Kidney Disease Staging per NKF:</content>
<content></content>
<content>Stage I & II GFR >=60 Normal to Mildly Decreased</content>
<content>Stage III GFR 30- 59 Moderately Decreased</content>
<content>Stage IV GFR 15-29 Severely Decreased</content>
<content>Stage V GFR <15 Very Little GFR Left</content>
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
<content></content> Chloride Level 102 meq/L 98-107 Normal (applies to non-numeric r esults) [facility] ([facility]) Potassium Serum 3.6 meq/L 3.5-5.1 Normal (applies to non-numeric results) [facility] ([facility]) Carbon Dioxide Level 22 meq/L 21-32 Normal (applies to non-num giovana results) [facility] ([facility]) Anion Gap 10 meq/L 8-16 Normal (applies to non-numeric resul ts) [facility] ([facility]) Calcium Level 7.6 mg/dL 8.8-10.2 Below low normal MEDEN T ([facility]) ID Date Data Source [id number] 11/19/2020 10:34:00 AM EST MED[facility] ([facility]) Name Value Range Interpretation Code Description Data Alissa rce(s) Supporting Document(s) White Blood Count 7.9 10 4.0-10.0 Normal (applies to non-numeri c results) [facility] ([facility]) Red Blood Count 3.85 10 4.30-6.10 Below low normal [facility] ([facility]) Hemoglobin 10.1 g/dL 13.5-17.5 Below low normal [facility] ( [facility]) Mean Corpuscular Hemoglobin 26.2 pg 27.0-33.0 Below low normal [facility] ([facility]) Hematocrit 32.5 % 42.0-52.0 Below low normal [facility] ( [facility]) Mean Corpuscular Volume 84.4 fl 80.0-96.0 Normal ( applies to non-numeric results) [facility] ([facility]) Red Cell Distribution Width 19.5 % 11.5-14.5 Above high normal [facility] ([facility]) Mean Corpuscular HGB Conc 31.1 g/dL 32.0-36.5 Below low normal [facility] ([facility]) Platelet Count, Automated 205 10 150-450 Normal (applies to non-numeric results) [facility] ([facility]) Nucleated Red Blood Cell % 0.0 % 0-0 Normal (applies to n on-numeric results) [facility] ([facility]) ID Date Data Source [id number] 11/19/2020 10:34:00 AM EST MED[facility] ([facility]) Name Value Range Interpretation Code Description Data Alissa rce(s) Supporting Document(s) Magnesium [Mass/volume] in Serum or Plasma 0.6 mg/dL 1.8-2 .4 Below lower panic limits [facility] ([facility]) Natriuretic peptide.B prohormone N-Terminal [Mass/volu me] in Serum or Plasma 4825 pg/mL [facility] ([facility]) ID Date Data Source [id number] 11/19/2020 10:34:00 AM EST MED[facility] ([facility]) Name Value Range Interpretation Code Description Data Alissa rce(s) Supporting Document(s) White Blood Count 7.9 10 4.0-10.0 MEDENT (Card iology [facility]) Red Blood Count 3.85 10 4.30-6.10 MEDENT (Cardio logy [facility]) Hematocrit 32.5 % 42.0-52.0 MEDENT (Cardiology [facility]) Hemoglobin 10.1 g/dL 13.5-17.5 MED[facility] (Cardiology [facility]) Mean Corpuscular Volume 84.4 fl 80.0-96.0 M EDENT (Cardiology [facility]) Red Cell Distribution Width 19.5 % 11.5-14.5 MED[facility] (Card[address] [facility]) Mean Corpuscular Hemoglobin 26.2 pg 27.0-33.0 MED[facility] ([facility]iology [facility]) Mean Corpuscular HGB Conc 31.1 g/dL 32.0-36.5 [facility] ([facility]) Nucleated Red Blood Cell % 0.0 % 0-0 [facility] (Cardiology [facility]) Platelet Count, Automated 205 10 150-450 [facility] ([facility]iology [facility]) ID Date Data Source [id number] 11/19/2020 10:34:00 AM EST MED[facility] ([facility]) Name Value Range Interpretation Code Description Data Alissa rce(s) Supporting Document(s) Glucose, Fasting 124 mg/dL 70-100 [facility] Creatinine For GFR 1.11 mg/dL 0.70-1.30 MEDENT (Cardiology [facility]) Blood Urea Nitrogen 21 mg/dL 7-18 MEDENT (Ca rdiology [facility]) Sodium Level 134 meq/L 136-145 MEDENT ([address]olog y [facility]) Glomerular Filtration Rate Laboratory test result [facility] (Cardiology [facility]) <content>Units are mL/min/1.73 m2</content>
<content></content>
<content>Chronic Kidney Disease Staging per NKF:</content>
<content></content>
<content>Stage I & II GFR >=60 Normal to Mildly Decreased</content>
<content>Stage III GFR 30- 59 Moderately Decreased</content>
<content>Stage IV GFR 15-29 Severely Decreased</content>
<content>Stage V GFR <15 Very Little GFR Left</content>
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
<content></content> Potassium Serum 3.6 meq/L 3.5-5.1 [facility] ([facility]) Anion Gap 10 meq/L 8-16 [facility] Chloride Level 102 meq/L 98-107 [facility] ([facility]) Carbon Dioxide Level 22 meq/L 21-32 MED[facility] (C ardiology [facility]) Calcium Level 7.6 mg/dL 8.8-10.2 MED[facility] ([address]iolo gy [facility]) ID Date Data Source [id number] 11/09/2020 12:00:00 AM EST [facility] Name Value Range Interpretation Code Description Data Alissa rce(s) Supporting Document(s) SARS coronavirus 2 Ag Negative [facility] This lab was ordered by [facility] and reported by [facility]. ID Date Data Source [id number] 10/02/2020 08:27:00 AM EST [facility] ([facility]) Name Value Range Interpretation Code Description Data Alissa rce(s) Supporting Document(s) Cholesterol Level 145 mg/dL Normal (applies to non-numeri c results) [facility]) Triglycerides Level 161 mg/dL Above high normal [facility] ([facility]) Non-HDL-C 116 mg/dL Normal (applies to non-numeric resul ts) [facility] ([facility]) HDL Cholesterol 29 mg/dL Below low normal [facility] ([facility]) LDL Cholesterol 84 mg/dL Normal (applies to non-numeric results) [facility]) Cholesterol Risk Ratio 5.000 Normal (applies to non-n umeric results) [facility]) ID Date Data Source [id number] 10/02/2020 08:27:00 AM EST [facility]) Name Value Range Interpretation Code Description Data Alissa rce(s) Supporting Document(s) Glucose, Fasting 78 mg/dL 70-100 Normal (applies to non-numeric results) [facility] ([facility], ) Creatinine For GFR 0.85 mg/dL 0.70-1.30 Normal (applies to non -numeric results) [facility] ([facility], ) Blood Urea Nitrogen 16 mg/dL 7-18 Normal (applies to non-nume ayaz results) [facility] ([facility], ) Sodium Level 137 meq/L 136-145 Normal (applies to non-numeric res ults) [facility] ([facility]) Potassium Serum 3.9 meq/L 3.5-5.1 Normal (applies to non-numeric results) [facility] ([facility]) Glomerular Filtration Rate Laboratory test result Normal (applies to non- numeric results) [facility] ([facility], ) <content>Units are mL/min/1.73 m2</content>
<content></content>
<content>Chronic Kidney Disease Staging per NKF:</content>
<content></content>
<content>Stage I & II GFR >=60 Normal to Mildly Decreased</content>
<content>Stage III GFR 30- 59 Moderately Decreased</content>
<content>Stage IV GFR 15-29 Severely Decreased</content>
<content>Stage V GFR <15 Very Little GFR Left</content>
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
<content></content> Carbon Dioxide Level 26 meq/L 21-32 Normal (applies to non-num giovana results) [facility] ([facility], ) Chloride Level 104 meq/L 98-107 Normal (applies to non-numeric r esults) [facility] ([facility]) Anion Gap 7 meq/L 8-16 Below low normal [facility] ( [facility], ) Calcium Level 8.3 mg/dL 8.8-10.2 Below low normal [facility] T ([facility], ) Ast/Sgot 28 U/L 7-37 Normal (applies to non-numeric resul ts) [facility] ([facility], ) Bilirubin,Total 0.7 mg/dL 0.2-1.0 Normal (applies to non-numeric results) [facility] ([facility], ) Alt/SGPT 18 U/L 12-78 Normal (applies to non-numeric resul ts) [facility] ([facility]) Alkaline Phosphatase 196 U/L 45-117 Above high normal [facility] ([facility], ) Total Protein 7.4 GM/DL 6.4-8.2 Normal (applies to non-numeric re sults) [facility] ([facility], ) Albumin/Globulin Ratio 0.9 Normal (applies to non-n umeric results) [facility] ([facility]) Albumin 3.4 GM/DL 3.2-5.2 Normal (applies to non-numeric resul ts) [facility] ([facility]) ID Date Data Source [id number] 10/02/2020 08:27:00 AM EST [facility] Name Value Range Interpretation Code Description Data Alissa rce(s) Supporting Document(s) Triglycerides Level 161 mg/dL [facility] ([facility]) Cholesterol Level 145 mg/dL [facility] ([facility]) HDL Cholesterol 29 mg/dL [facility] ([facility]) LDL Cholesterol 84 mg/dL [facility] ([facility]) Non-HDL-C 116 mg/dL [facility] Cholesterol Risk Ratio 5.000 [facility] ([facility]) ID Date Data Source [id number] 10/02/2020 08:27:00 AM EST [facility] ([facility]) Name Value Range Interpretation Code Description Data Alissa rce(s) Supporting Document(s) Glucose, Fasting 78 mg/dL 70-100 [facility] ([facility]) Blood Urea Nitrogen 16 mg/dL 7-18 [facility] ([facility]) Glomerular Filtration Rate Laboratory test result [facility] ([facility]) <content>Units are mL/min/1.73 m2</content>
<content></content>
<content>Chronic Kidney Disease Staging per NKF:</content>
<content></content>
<content>Stage I & II GFR >=60 Normal to Mildly Decreased</content>
<content>Stage III GFR 30- 59 Moderately Decreased</content>
<content>Stage IV GFR 15-29 Severely Decreased</content>
<content>Stage V GFR <15 Very Little GFR Left</content>
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
<content></content> Creatinine For GFR 0.85 mg/dL 0.70-1.30 [facility] ([facility]) Potassium Serum 3.9 meq/L 3.5-5.1 [facility] ([facility]) Sodium Level 137 meq/L 136-145 [facility] ([facility]) Chloride Level 104 meq/L 98-107 [facility] ([facility]) Carbon Dioxide Level 26 meq/L 21-32 [facility] ([facility]) Anion Gap 7 meq/L 8-16 [facility] ([facility] Alt/SGPT 18 U/L 12-78 [facility] ([facility] Ast/Sgot 28 U/L 7-37 [facility] ([facility]) Calcium Level 8.3 mg/dL 8.8-10.2 [facility] ([facility]) Bilirubin,Total 0.7 mg/dL 0.2-1.0 [facility] ([facility]) Alkaline Phosphatase 196 U/L 45-117 [facility] ([facility]) Albumin/Globulin Ratio 0.9 [facility] ([facility]) Albumin 3.4 GM/DL 3.2-5.2 [facility] ([facility] Total Protein 7.4 GM/DL 6.4-8.2 [facility] ([facility]) ID Date Data Source [id number] 06/25/2020 09:32:00 AM EDT [facility] ([facility]) Name Value Range Interpretation Code Description Data Alissa rce(s) Supporting Document(s) Red Blood Count 4.36 10 4.30-6.10 [facility] ([facility]) White Blood Count 7.0 10 4.0-10.0 [facility] ([facility] [facility]) Mean Corpuscular Volume 86.2 fl 80.0-96.0 M EDENT (Cardiology [facility]) Hematocrit 37.6 % 42.0-52.0 MEDENT ([facility]iology [facility]) Hemoglobin 12.0 g/dL 13.5-17.5 MED[facility] (Cardiology [facility]) Mean Corpuscular HGB Conc 31.9 g/dL 32.0-36.5 MED[facility] ([facility]) Mean Corpuscular Hemoglobin 27.5 pg 27.0-33.0 MED[facility] ([facility]iology [facility]) Platelet Count, Automated 215 10 150-450 MEDENT ([facility]) Nucleated Red Blood Cell % 0.0 % 0-0 MED ENT (Cardiology [facility]) Red Cell Distribution Width 15.7 % 11.5-14.5 MEDENT ([facility]iology [facility]) ID Date Data Source [id number] 04/07/2020 08:52:00 AM EDT [facility] Name Value Range Interpretation Code Description Data Alissa rce(s) Supporting Document(s) Glucose, Fasting 118 mg/dL 70-100 [facility] Blood Urea Nitrogen 10 mg/dL 7-18 MEDENT (Ca rdiology [facility]) Creatinine For GFR 0.99 mg/dL 0.70-1.30 MEDENT ([facility]iology [facility]) Glomerular Filtration Rate Laboratory test result [facility] (Cardiology [facility]) <content>Units are mL/min/1.73 m2</content>
<content></content>
<content>Chronic Kidney Disease Staging per NKF:</content>
<content></content>
<content>Stage I & II GFR >=60 Normal to Mildly Decreased</content>
<content>Stage III GFR 30- 59 Moderately Decreased</content>
<content>Stage IV GFR 15-29 Severely Decreased</content>
<content>Stage V GFR <15 Very Little GFR Left</content>
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
<content></content> Sodium Level 136 meq/L 136-145 [facility] ([facility]) Chloride Level 97 meq/L 98-107 MED[facility] ([facility]) Potassium Serum 3.0 meq/L 3.5-5.1 MED[facility] ([facility]io [facility]) Anion Gap 13 meq/L 8-16 [facility] Carbon Dioxide Level 26 meq/L 21-32 MEDENT ([facility]) Calcium Level 6.5 mg/dL 8.8-10.2 MEDENT (Cardiolo gy [facility]) ID Date Data Source [id number] 04/01/2020 06:57:00 AM EDT [facility] ([facility], ) Name Value Range Interpretation Code Description Data Alissa rce(s) Supporting Document(s) Glucose, Fasting 94 mg/dL 70-100 Normal (applies to non-numeric results) MEDENT ([facility]) Blood Urea Nitrogen 14 mg/dL 7-18 Normal (applies to non-nume ayaz results) [facility] ([facility]) Glomerular Filtration Rate Laboratory test result Normal (applies to non- numeric results) [facility] ([facility]) <content>Units are mL/min/1.73 m2</content>
<content></content>
<content>Chronic Kidney Disease Staging per NKF:</content>
<content></content>
<content>Stage I & II GFR >=60 Normal to Mildly Decreased</content>
<content>Stage III GFR 30- 59 Moderately Decreased</content>
<content>Stage IV GFR 15-29 Severely Decreased</content>
<content>Stage V GFR <15 Very Little GFR Left</content>
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
<content></content> Creatinine For GFR 0.90 mg/dL 0.70-1.30 Normal (applies to non -numeric results) [facility] ([facility], ) Sodium Level 135 meq/L 136-145 Below low normal [facility] ([facility]) Potassium Serum 3.7 meq/L 3.5-5.1 Normal (applies to non-numeric results) [facility] ([facility]) Testing was performed on a SLIGHTLY hemo lyzed specimen. Suggest recollection of specimen for more accurate test results. Chloride Level 100 meq/L 98-107 Normal (applies to non-numeric r esults) [facility] ([facility]) Calcium Level 6.7 mg/dL 8.8-10.2 Below low normal MED T ([facility]) Carbon Dioxide Level 27 meq/L 21-32 Normal (applies to non-num giovana results) [facility] ([facility]) Anion Gap 8 meq/L 8-16 Normal (applies to non-numeric resul ts) [facility] ([facility]) ID Date Data Source [id number] 10/11/2019 08:49:00 AM EST [facility] ([facility]) Name Value Range Interpretation Code Description Data Alissa rce(s) Supporting Document(s) Glucose, Fasting 111 mg/dL 70-100 [facility] Creatinine For GFR 1.13 mg/dL 0.70-1.30 [facility] ([facility]) Glomerular Filtration Rate Laboratory test result [facility] (Cardiology [facility]) <content>Units are mL/min/1.73 m2</content>
<content></content>
<content>Chronic Kidney Disease Staging per NKF:</content>
<content></content>
<content>Stage I & II GFR >=60 Normal to Mildly Decreased</content>
<content>Stage III GFR 30- 59 Moderately Decreased</content>
<content>Stage IV GFR 15-29 Severely Decreased</content>
<content>Stage V GFR <15 Very Little GFR Left</content>
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
<content></content> Blood Urea Nitrogen 17 mg/dL 7-18 [facility] ([facility]) Sodium Level 133 meq/L 136-145 [facility] ([facility]) Chloride Level 99 meq/L 98-107 [facility] ([facility]) Potassium Serum 4.9 meq/L 3.5-5.1 [facility] ([facility]) Carbon Dioxide Level 22 meq/L 21-32 [facility] ([facility]) Anion Gap 12 meq/L 8-16 [facility] Calcium Level 8.3 mg/dL 8.8-10.2 [facility] ([facility]iol[facility]) Procedure Vital Signs ID Date Data Source UNK Name Value Range Interpretation Code Description Data Source(s) Body surface area Derived from formula 2.14 m2 2.14 m2 [facility]) Body weight 87.772 kg 87.772 kg [facility] ([facility]) [place] body weight 190 [lb_av] 190 [lb_av] MEDEN T ([facility]) Body mass index (BMI) [Ratio] 24.8 kg/m2 24.8 k g/m2 [facility] ([facility]) Body weight 193.50 [lb_av] 193.50 [lb_av] MEDEN T ([facility]) Body height 74 [in_i] 74 [in_i] [facility] ([facility]) 6'2" Diastolic blood pressure 46 mm[Hg] 46 mm[Hg] [facility] ([facility]) Systolic blood pressure 98 mm[Hg] 98 mm[Hg] M EDENT ([facility]) Heart rate 84 /min 84 /min [facility] (Cardio logy [facility]) Irregular Body mass index (BMI) [Ratio] 23.9 kg/m2 23.9 k g/m2 [facility] ([facility]iology [facility]) Body height 74 [in_i] 74 [in_i] [facility] ([facility]) 6'2" Body weight 186.00 [lb_av] 186.00 [lb_av] MEDEN T ([facility]) Diastolic blood pressure 64 mm[Hg] 64 mm[Hg] [facility] ([facility]) sitting, regular cuff Systolic blood pressure 142 mm[Hg] 142 mm[Hg] [facility] sitting, regular cuff Respiratory rate 16 /min 16 /min [facility] ( [facility]) Body weight 180.00 [lb_av] 180.00 [lb_av] MEDEN T ([facility]) Body temperature 96.2 [degF] 96.2 [degF] [facility] ([facility], [facility]) Oxygen saturation in Arterial blood by Pulse oximetry 95 % 95 % [facility] ([facility], [facility]) Respiratory rate 18 /min 18 /min [facility] ( [facility]) Heart rate 78 /min 78 /min [facility] ([facility], [facility]) Diastolic blood pressure 77 mm[Hg] 77 mm[Hg] [facility] ([facility], [facility]) Systolic blood pressure 165 mm[Hg] 165 mm[Hg] ED[facility] ([facility]) Diastolic blood pressure 80 mm[Hg] 80 mm[Hg] [facility] ([facility]) sitting Systolic blood pressure 156 mm[Hg] 156 mm[Hg] [facility]) sitting Diastolic blood pressure 78 mm[Hg] 78 mm[Hg] [facility] ([facility]) sitting, regular cuff Systolic blood pressure 156 mm[Hg] 156 mm[Hg] [facility]) sitting, regular cuff Respiratory rate 16 /min 16 /min [facility] ( [facility]) Heart rate 88 /min 88 /min [facility] ([facility]) Regular Body mass index (BMI) [Ratio] 23.5 kg/m2 23.5 k g/m2 [facility] ([facility]) Body height 74 [in_i] 74 [in_i] [facility] ([facility]) 6'2" Body weight 183.00 [lb_av] 183.00 [lb_av] MEDEN T ([facility]) [place] body weight 184 [lb_av] 184 [lb_av] MEDEN T ([facility]) Oxygen saturation in Arterial blood by Pulse oximetry 98 % 98 % [facility] ([facility]) Body temperature 98.7 [degF] 98.7 [degF] [facility] ([facility]) Respiratory rate 22 /min 22 /min [facility] ( [facility]) Heart rate 81 /min 81 /min [facility] ([facility]) Body mass index (BMI) [Ratio] 24.4 kg/m2 24.4 k g/m2 [facility] ([facility]) Body weight 185.12 [lb_av] 185.12 [lb_av] MEDEN T ([facility]) Body height 73 [in_i] 73 [in_i] [facility] ([facility]) 6'1" Diastolic blood pressure 88 mm[Hg] 88 mm[Hg] [facility] ([facility]) Systolic blood pressure 128 mm[Hg] 128 mm[Hg] [facility] ([facility]) Body surface area Derived from formula 2.11 m2 2.11 m2 [facility] ([facility]) Body weight 84.483 kg 84.483 kg [facility] ([facility]) [place] body weight 190 [lb_av] 190 [lb_av] [facility] Body mass index (BMI) [Ratio] 23.9 kg/m2 23.9 k g/m2 [facility] ([facility]) Body weight 186.25 [lb_av] 186.25 [lb_av] [facility] Body height 74 [in_i] 74 [in_i] [facility] ([facility]) 6'2" Diastolic blood pressure 70 mm[Hg] 70 mm[Hg] [facility] ([facility]) Systolic blood pressure 122 mm[Hg] 122 mm[Hg] [facility] ([facility]) Diastolic blood pressure 76 mm[Hg] 76 mm[Hg] [facility] ([facility]) sitting Systolic blood pressure 132 mm[Hg] 132 mm[Hg] [facility] ([facility]) sitting Diastolic blood pressure 76 mm[Hg] 76 mm[Hg] [facility] ([facility]) sitting, regular cuff Systolic blood pressure 136 mm[Hg] 136 mm[Hg] [facility] sitting, regular cuff Respiratory rate 16 /min 16 /min [facility] ( [facility]) Heart rate 84 /min 84 /min [facility] ([facility]) Regular Body mass index (BMI) [Ratio] 23.8 kg/m2 23.8 k g/m2 [facility] ([facility]) Body height 74 [in_i] 74 [in_i] [facility] ([facility]i [facility]) 6'2" Body weight 185.00 [lb_av] 185.00 [lb_av] MEDEN T ([facility]) Body weight 86.184 kg 86.184 kg [facility] ([facility]) Body mass index (BMI) [Ratio] 24.4 kg/m2 24.4 k g/m2 [facility] ([facility]) Body weight 190.00 [lb_av] 190.00 [lb_av] MEDEN T ([facility]) Body height 74 [in_i] 74 [in_i] [facility] ([facility]) 6'2" Diastolic blood pressure 70 mm[Hg] 70 mm[Hg] [facility] ([facility]) Systolic blood pressure 150 mm[Hg] 150 mm[Hg] [facility] ([facility]) Body weight 88.962 kg 88.962 kg [facility] ([facility]) Body mass index (BMI) [Ratio] 25.2 kg/m2 25.2 k g/m2 [facility] ([facility]) Body weight 196.12 [lb_av] 196.12 [lb_av] MEDEN T ([facility]) Body height 74 [in_i] 74 [in_i] [facility] ([facility]) 6'2" Diastolic blood pressure 82 mm[Hg] 82 mm[Hg] [facility] ([facility]) Systolic blood pressure 168 mm[Hg] 168 mm[Hg] [facility] ([facility], ) [place] body weight 184 [lb_av] 184 [lb_av] MEDEN T ([facility]) Oxygen saturation in Arterial blood by Pulse oximetry 99 % 99 % [facility] ([facility]) Body temperature 98.6 [degF] 98.6 [degF] [facility] ([facility]) Respiratory rate 18 /min 18 /min [facility] ( [facility]) Heart rate 62 /min 62 /min [facility] ([facility]) Body mass index (BMI) [Ratio] 26.0 kg/m2 26.0 k g/m2 [facility] ([facility]) Body weight 197.00 [lb_av] 197.00 [lb_av] MEDEN T ([facility]) Body height 73 [in_i] 73 [in_i] [facility] ([facility]) 6'1" Diastolic blood pressure 82 mm[Hg] 82 mm[Hg] [facility] ([facility]) Systolic blood pressure 126 mm[Hg] 126 mm[Hg] [facility] Diastolic blood pressure 68 mm[Hg] 68 mm[Hg] [facility] ([facility]) Sitting, regular cuff Systolic blood pressure 134 mm[Hg] 134 mm[Hg] [facility]) Sitting, regular cuff Respiratory rate 16 /min 16 /min [facility] ( [facility]) Heart rate 76 /min 76 /min [facility] ([facility]) Regular Body mass index (BMI) [Ratio] 25.0 kg/m2 25.0 k g/m2 [facility] ([facility]) Body height 74 [in_i] 74 [in_i] [facility] ([facility]) 6'2" Body weight 195.00 [lb_av] 195.00 [lb_av] MEDEN T ([facility])
--- NOTE | 2020-12-03 15:57 | REP ---
INDICATION: pre-admission. COMPARISON: Comparison chest x-ray 19 November 2020.. TECHNIQUE: Portable upright AP radiograph. Two views provided. FINDINGS: Patient is status post prior median sternotomy. Mildly prominent heart unchanged. Bibasilar interstitial fibrosis pattern is seen in the lung stewart. No acute infiltrate is appreciated. Pulmonary vasculature is not increased. No pleural effusion noted. IMPRESSION: Bibasilar pulmonary fibrosis pattern. Prior sternotomy. Borderline heart size. <Electronically signed by Mao Medina > 12/03/20 [id number]
[2020-12-03 16:26] LABS: RSV AMPLIFICATION NEGATIVE (NEGATIVE)
--- NOTE | 2020-12-03 16:37 | ECGEPIP ---
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
[2020-12-03 16:55] LABS: CK-MB VALUE MASS 3.3 NG/ML (<3.6); CPK CREATINE PHOSPHOKINASE 98 U/L (39-308); MB/CK RELATIVE INDEX 3.37 (< OR =4); TROPONIN I < 0.02 NG/ML (< 0.10)
[2020-12-03 16:57] LABS: INR 1.33; PROTHROMBIN TIME 16.8 SECONDS (12.5-14.3)
[2020-12-03 16:58] LABS: PARTIAL THROMBOPLASTIN TIME 35.8 SECONDS (24.2-38.5)
[2020-12-03 17:42] VITALS: BP 114/57
[2020-12-03] MEDS ORDERED: RAMI1CAP26 PO (17:43)
[2020-12-03] MEDS ORDERED: OMEP1CAP73 PO (17:43)
[2020-12-03] MEDS ORDERED: BISO10TA14 PO (17:43)
[2020-12-03] MEDS ORDERED: ASPI-161 PO (17:43)
[2020-12-03 17:57] VITALS: BP 126/60
[2020-12-03] MEDS ORDERED: AZELASTINE 137MCG NASAL SPY 30 ML (ASTELIN) PRN (18:30)
[2020-12-03] MEDS ORDERED: ACETAMINOPHEN TAB 650MG DOSE (2X325MG) PO PRN (18:30)
[2020-12-03] MEDS ORDERED: MOM 30ML SUSPENSION UDC PO PRN (18:30)
[2020-12-03] MEDS ORDERED: MAALOX 30 ML SUSP *UDC PO PRN (18:30)
--- NOTE | 2020-12-03 18:31 | HPEPDOC ---
[facility] Medical History & Physical Date of Admission Dec 03, 2020 Date of Service: Dec 03, 2020 History and Physical CHIEF COMPLAINT: dark stools HISTORY OF PRESENT ILLNESS: 70-year-old male with a history of CAD s/p CABG 2007, atrial flutter on Xarelto, hypertension, COPD, peripheral arterial disease, presented to ER with symptomatic anemia and report of melena for the past month. He has been seeing his PCP regularly and has noted hemoglobin downtrend from 12 to 10 to now 8.5 in the ED. Patient was Hemoccult positive. Dr. Saucedo was consulted from the ED, recommends holding Xarelto for 2 days and patient will be planned for endoscopy while in the patient. Last dose of xarelto was on evening of 12/02/20. Patient denies active gross melena or bright red blood per rectum. Instead he reports approximately an 8-10 pound loss in the last 30- 45 days as well as black stool. He denies any hemoptysis, hematemesis, chest pain, seizures of breath, nausea, vomiting, diarrhea. He did have 3 days of lightheadedness and dizziness, which has now resolved. He was transferred 1 unit of packed red blood cells in the ED. Patient will be admitted to hospitalist service for workup of anemia, likely due to GI bleed. PAST MEDICAL HISTORY: CAD s/p CABG 2007 Atrial flutter on xarelto HTN HLD COPD PAD s/p bilateral iliac stents 04/2020 PAST SURGICAL HISTORY: CABG 2007 Bilateral iliac stents 04/2020 SOCIAL HISTORY: Active smoker Drinks 3-4 beers per day FAMILY HISTORY: Reviewed with patient. Found not to be pertinent ALLERGIES: Please see below. REVIEW OF SYSTEMS: 10 point ROS conducted, pertinent positives in HPI HOME MEDICATIONS: Please see below. PHYSICAL EXAMINATION: VITAL SIGNS: please see below General: NAD, comfortable HEENT: PERRLA, EOMI, sclerae clear Neck: supple, normal ROM, no JVD Respiratory: lungs CTAB, no wheeze, no rales, no crackles CVS: RRR, normal S1, S2, no murmurs Abdo: soft, no masses, no hepatosplenomegaly, BS+, no rebound tenderness Extremities: no edema, pulses 2+ MSK: no joint deformities, normal ROM Neuro: no focal neuro deficits, moving all 4 extremities, CN2-12 intact. Strength 5/5 in all 4 extremities. No nystagmus. Psych: calm, cooperative, AAO x 3 LABORATORY DATA: See below. IMAGING: CXR (12/03/20): IMPRESSION: Bibasilar pulmonary fibrosis pattern. Prior sternotomy. Borderline heart size. MICROBIOLOGY: Please see below. ASSESSMENT: 70-year-old male with a history of coronary artery disease status post CABG 2007, atrial flutter on Xarelto, hypertension, COPD, peripheral arterial disease, presented to ER with symptomatic anemia and report of melena for the past month. Patient will be admitted to hospitalist service. Workup of her symptomatically anemia. GI, Dr. Saucedo will be on consultation. PLAN: #Symptomatic anemia - c/o dark stools for a month, with weight loss - Hct 28 - s/p 1 units prbc in ED - trend Hgb q12h - GI consulted, Dr. Saucedo for endoscopy - hold xarelto x 2 days - PPI #CAD s/p CABG - hold asa - continue with statin #Aflutter - seen EKG - hold xarelto - tele #CHF - no prior echo available - follows with Dr. Gonzales - resume home meds, appears euvolemic - bisoprolol, torsemide, spironolactone - check K, Mg #HTN - BP well controlled - resume home med #COPD - stable, resume home inhalers #HDL - statin DVT ppx: hold lovenox, hold xarelto. SCDs, TEDs. Vital Signs Vital Signs Date Time Temp Pulse Resp B/P (MAP) Pulse Ox O2 Delivery O2 Flow Rate FiO2 12/03/20 17:57 96.5 72 18 126/60 96 Room Air Laboratory Data Labs 24H Laboratory Tests 2 12/03/20 15:34: Coronavirus (COVID-19)(PCR) NEGATIVE, Influenza Type A (RT-PCR) NEGATIVE, Influenza Type B (RT-PCR) NEGATIVE, Respiratory Syncytial Virus (PCR) NEGATIVE 12/03/20 15:35: POC Glucose (Misc Panel) 107H, POC Sodium (Misc Panel) 141, POC Potassium (Misc Panel) 4.9, POC Chloride (Misc Panel) 106, POC Total CO2 (Misc Panel) 27.0, POC Blood Urea Nitrogen (Misc Panel 35H, POC Ionized Calcium (Misc Panel) 5.2, POC Creatinine (Misc Panel) 1.4H, POC Hematocrit (Misc Panel) 28.0L 12/03/20 16:19: Prothrombin Time 16.8H, Prothromb Time International Ratio 1.33, Activated Partial Thromboplast Time 35.8, Total Creatine Kinase 98, Creatine Kinase MB 3.3, Creatine Kinase MB Relative Index 3.37, Troponin I < 0.02 Home Medications Scheduled Aspirin (Aspirin EC) 81 Mg Tablet.dr, 81 MG PO DAILY Bisoprolol Fumarate (Bisoprolol Fumarate) 10 Mg Tablet, 10 MG PO DAILY Famotidine (Famotidine) 40 Mg Tablet, 40 MG PO DAILY Magnesium Chloride (Mag64) 64 Mg Tablet.dr, 128 MG PO BID Omeprazole (Omeprazole) 20 Mg Capsule.dr, 20 MG PO DAILY Pravastatin Sodium (Pravastatin Sodium) 20 Mg Tablet, 20 MG PO QHS Ramipril (Ramipril) 10 Mg Capsule, 10 MG PO DAILY Rivaroxaban (Xarelto) 20 Mg Tablet, 20 MG PO QPM Spironolactone (Spironolactone) 25 Mg Tablet, 12.5 MG PO DAILY Torsemide (Torsemide) 10 Mg Tablet, 10 MG PO BID Scheduled PRN Azelastine HCl (Azelastine HCl) 0.1% Page.pump, 2 SPRAY NARES BID PRN for ALLERGIES Allergies Coded Allergies: Penicillins (Verified Allergy, Unknown, RED RASH, 12/03/20) A-FIB/CHADSVASC A-FIB History Current/History of A-Fib/PAF?: Yes Current PO Anticoag Therapy: Yes JENNI VALENZUELA MD Dec 03, 2020 18:31
--- OUTSIDE RECORDS SUMMARY | 2020-12-03 18:37 | CCD ---
Author Author [facility] Organization [facility] Address Unknown Phone Unavailable Care Team Providers Care Steel Handler Name Role Phone Bhavna Doe MD Unavailable [...] is protected by Article 27-F of the [facility] Public Health law. If you continue you may have access to information: Regarding HIV / AIDS; Provided by facilities licensed or operated by the [facility] Office of Mental Health; or Provided by the [facility] Office for People With Developmental Disabilities. If such information is present, then the following [facility] mandated warning applies: This information has been [...] law may result in a fine or penitentiary sentence or both. A general authorization for the release of medical or other information is NOT sufficient authorization for further disc losure. Allergies and Adverse Reactions Type Description Substance Reaction Status Data Source(s ) Drug Class PENICILLINS Penicillin [facility] Family History Family Member Name Family Member Gender Family Member Status Date o f Status Description Data Source(s) Unknown Unknown Problem [facility] ([facility]) Unknown Unknown Problem [facility] ([facility] Unknown Female Encounters Encounter Providers Location Date Indications Data Source(s ) Outpatient Attender: Rashmi GÓMEZ Main Office 11/19/2020 06:45:00 AM EST [facility] ([facility]) Outpatient Attender: Trudi GÓMEZ Marlee Harris Naveed saldivary 11/09/2020 09:30:00 AM EST [facility] ([facility]) Outpatient Attender: Rashmi GÓMEZ Main Office 10/08/2020 06:45:00 AM EST [facility] ([facility]) Outpatient Attender: Noam GÓMEZ [facility] 07/12/2020 10:00:00 AM EDT MED[facility] ([facility]) Outpatient Attender: Elisabte Batres/Nada/Edd/R eindl 05/27/2020 10:15:00 AM EDT [facility] ([facility] Outpatient Attender: Rashmi GÓMEZ Main Office 04/15/2020 08:15:00 AM EDT MED[facility] ([facility]) Outpatient Attender: Elisabet Remy RPA Gisel/Nada/Edd/R eindl 04/08/2020 09:45:00 AM EDT [facility] ([facility] Outpatient Attender: Ellen Batres/Estela/Edd/ Reindl 03/14/2020 11:00:00 AM EDT [facility] ([facility] Outpatient Attender: Noam GÓMEZ [facility] 01/10/2020 10:00:00 AM EDT MED[facility] ([facility]) Outpatient Attender: Rashmi GÓMEZ Main Office 10/11/2019 07:00:00 AM EST [facility] ([facility]) Immunizations Vaccine Date Status Description Data Source(s) [...] EST ORAL active [facility] ([facility]) Spironolactone 25 MG Oral Tablet Spironolactone 11/19/2020 12:00:00 A M EST ORAL active [facility] Famotidine 40 MG Oral Tablet Famotidine 11/19/2020 12:00:00 AM EST ORAL active [facility] 25 mg 11/19/2020 12:00:00 AM EST tablet 45 TAE 1/2 TABLET BY MOUTH ONCE DAILY TAE 1/2 TABLET BY MOUTH ONCE DAILY SOLD: 11/19/2020 [employer] Magnesium Chloride 535 MG Delayed Release Oral Tablet [Mag 6 4] Mag64 11/19/2020 12:00:00 AM EST ORAL active M EDENT ([facility]) 40 mg 11/19/2020 12:00:00 AM EST tablet [...] 11/09/2020 12:00:[address] active MED[facility] ([facility]) 20 mg 10/08/2020 12:00:00 AM EST [...] 12:00:0 0 AM EST ORAL active [facility] Amlodipine 5 MG Oral Tablet Amlodipine Besylate 10/08/2020 12:00:00 A M EST ORAL completed [facility] 10 mg 09/09/2020 12:00:00 AM EST tablet [...] AM EDT activ e [facility] ([facility]) 25 mg 06/24/2020 12:00:00 AM EDT tablet [...] completed [facility] ([facility]) 5 mg 05/29/2020 12:00:00 AM [...] AM EDT ORAL completed [facility] ([facility]) 75 mg 04/01/2020 12:00:00 AM EDT tablet [...] TABLET BY MOUTH EVERY DAY SOLD: 12/08/2019 [facility] 10 mg 09/06/2019 12:00:00 AM EST [...] type / Coverage type Policy ID Covered green party ID Covered green party's relationship to holland Policy [place] Plan Information [facility] [id number] SP [id number] BCBS EMPIRE ZAHRA DIV [id number] SP [id number] MEDICARE [id number] SP [id number] EMPIRE PLAN [facility] [place] [id number] Self [id number] MEDICARE A [id number] Self [id number] [facility] [id number] SP [id number] BCBS EMPIRE ZAHRA DIV [id number] SP [id number] United [employer] Jeannette Commercial [id number] Self [id number] Medicare Natl Gov't Servi Medicare Primary [id number] Self [id number] United [employer] Jeannette Commercial [id number] Self [id number] Medicare Natl Gov't Servi Medicare Primary [id number] Self [id number] Jeannette Plan-United [employer] Medigap Part B [id number] Self [id number] Medicare (Part B) Medicare Primary [id number] Self [id number] Jeannette Plan-[employer] Medigap Part B [id number] Self [id number] Jeannette Plan-[employer] Medigap Part B [id number] Self [id number] Medicare (Part B) Medicare Primary [id number] Self [id number] MEDICARE [id number] SP [id number] A United [employer] Jeannette Commercial [id number] Self [id number] Medicare Natl Gov't Servi Medicare Primary [id number] Self [id number] Jeannette Plan-[employer] Medigap Part B [id number] Self [id number] Medicare (Part B) Medicare Primary [id number] Self [id number] EXCELLUS BCBS [id number] Shahla YLS [id number] MEDICARE [id number] Shahla [id number] A MEDICARE PI PI EXCELLUS BCBS PI PI Jeannette Plan-[employer] Medigap Part B [id number] Self [id number] Medicare (Part B) Medicare Primary [id number] Self [id number] United [employer] Jeannette Medigap Part B [id number] Self [id number] Medicare Natl Gov't Servi Medicare Primary [id number] Self [id number] Jeannette Plan-[employer] Medigap Part B [id number] Self [id number] Medicare (Part B) Medicare Primary [id number] Self [id number] MEDICARE [id number] SP [id number] A UNITED HEALTHCARE [id number] SP [id number] BCBS EMPIRE ZAHRA DIV [id number] SP [id number] Jeannette Plan-[employer] Medigap Part B [id number] Self [id number] Medicare (Part B) Medicare Primary [id number] Self [id number] Jeannette Plan-[employer] Medigap Part B [id number] Self [id number] Medicare (Part B) Medicare Primary [id number] Self [id number] Jeannette Plan-[employer] Medigap Part B [id number] Self [id number] Medicare (Part B) Medicare Primary [id number] Self [id number] Jeannette Plan-[employer] Medigap Part B [id number] Self [id number] Medicare (Part B) Medicare Primary [id number] Self [id number] Jeannette Plan-[employer] Medigap Part B [id number] Self [id number] Medicare (Part B) Medicare Primary [id number] Self [id number] UNITED HEALTHCARE O [id number] S [id number] MEDICARE C [id number] S [id number] A Medicare (Part B) Medicare Primary Self Jeannette Plan-[employer] Medigap Part B Self Jeannette Plan-[employer] Medigap Part B Self [employer] Jeannette Par Medigap Part B Self Medicare - NGS Medicare Primary Self Medicare Medicare Primary Self MEDICARE UNAVAILABLE SP UNAVAILA BLE MEDICARE [id number] SP [id number] 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 - OP [id number] Problems, Conditions, and Diagnoses Code Display Name Description Problem Type Effective Dates Data Source(s) 46397533 Essential hypertension Essential hypertension Problem 01/10/2020 12:00:00 AM EDT MED[facility] ([facility]) [id number] Hyperlipidemia Hyperlipidemia Problem 01/10/2020 12:00: 00 AM EDT MED[facility] ([facility]) [id number] History of coronary artery bypass grafti ng History of coronary artery bypass grafting Problem 01/10/2020 12:00:00 AM EDT MED[facility] ([facility]) [id number] Atherosclerosis of coronary artery witho ut angina pectoris Atherosclerosis of coronary artery without angina pectoris Problem 01/10/2020 12:00:00 AM EDT MED[facility] ([facility]) Surgeries/Procedures Procedure Description Date Indications Data Source(s) ECG ROUTINE ECG W/LEAST 12 LDS W/I&R 10/08/2020 12:00: 00 AM EST [facility] ([facility]) MYOCARDIAL SPECT MULTIPLE STUDIES 05/28/2020 12:00:00 AM EDT [facility] ([facility]) CV STRS TST XERS&/OR RX CONT ECG PHYS SI&R 05/28/2020 12:00:00 AM EDT [facility] ([facility]) ECG ROUTINE ECG W/LEAST 12 LDS W/I&R 04/15/2020 12:00: 00 AM EDT [facility] ([facility]) Revascularization,Endovascular,Transluminal Stent Placement 04/01/2020 12:00:00 AM EDT [facility] ([facility] Revascularization,Endovascular,Transluminal Stent Placement 04/01/2020 12:00:00 AM EDT [facility] ([facility] Aortography Abdominal & Bilat Iliofemoral LWR Extremity Cath 04/01/2020 12:00:00 AM EDT [facility] Moderate Sedation Services; Same Phys Intl 15 Mins; PT >= 5 Years 04/01/2020 12:00:00 AM EDT [facility] Results ID Date Data Source [id number] 11/19/2020 10:34:00 AM EST MED[facility] ([facility]) Name Value Range Interpretation Code Description Data Alissa rce(s) Supporting Document(s) Magnesium [Mass/volume] in Serum or Plasma 0.6 mg/dL 1.8-2 .4 Below lower panic limits MED[facility] ([facility]) Natriuretic peptide.B prohormone N-Terminal [Mass/volu me] in Serum or Plasma 4825 pg/mL Above high normal [facility] ([facility]) ID Date Data Source [id number] 11/19/2020 10:34:00 AM EST MED[facility] ([facility]) Name Value Range Interpretation Code Description Data Alissa rce(s) Supporting Document(s) Blood Urea Nitrogen 21 mg/dL 7-18 Above high normal [facility] ([facility]) Glucose, Fasting 124 mg/dL 70-100 Above high normal M EDENT ([facility]) Sodium Level 134 meq/L 136-145 Below low normal [facility] ([facility]) Creatinine For GFR 1.11 mg/dL 0.70-1.30 Normal (applies to non -numeric results) [facility] ([facility]) Glomerular Filtration Rate Laboratory test result Normal (applies to non- numeric results) [facility] ([facility]) <content>Units are mL/min/1.73 m2</content>
<content></content>
<content>Chronic Kidney Disease Staging per NKF:</content>
<content></content>
<content>Stage I & II GFR >=60 Normal to Mildly Decreased</content>
<content>Stage III GFR 30- 59 Moderately Decreased</content>
<content>Stage IV GFR 15-29 Severely Decreased</content>
<content>Stage V GFR <15 Very Little GFR Left</content>
<content>ESRD GFR <15 on PARAMEDIC SUPERVISOR</content>
<content></content> Chloride Level 102 meq/L 98-107 Normal (applies to non-numeric r esults) [facility] ([facility]) Potassium Serum 3.6 meq/L 3.5-5.1 Normal (applies to non-numeric results) [facility] ([facility]) Carbon Dioxide Level 22 meq/L 21-32 Normal (applies to non-num giovana results) [facility] ([facility]) Anion Gap 10 meq/L 8-16 Normal (applies to non-numeric resul ts) [facility] ([facility]) Calcium Level 7.6 mg/dL 8.8-10.2 Below low normal [facility] T ([facility]) ID Date Data Source [id number] 11/19/2020 10:34:00 AM EST MED[facility] ([facility]) Name Value Range Interpretation Code Description Data Alissa rce(s) Supporting Document(s) White Blood Count 7.9 10 4.0-10.0 Normal (applies to non-numeri c results) [facility] ([facility]) Red Blood Count 3.85 10 4.30-6.10 Below low normal [facility] ([facility]) Hemoglobin 10.1 g/dL 13.5-17.5 Below low normal [facility] ( [facility]) Mean Corpuscular Hemoglobin 26.2 pg 27.0-33.0 Below low normal [facility] ([facility]) Hematocrit 32.5 % 42.0-52.0 Below low normal [facility] ( [facility]) Mean Corpuscular Volume 84.4 fl 80.0-96.0 Normal ( applies to non-numeric results) [facility] ([facility]) Red Cell Distribution Width 19.5 % 11.5-14.5 Above high normal [facility] ([facility]) Mean Corpuscular HGB Conc 31.1 g/dL 32.0-36.5 Below low normal [facility] ([facility]) Platelet Count, Automated 205 10 150-450 Normal (applies to non-numeric results) [facility] ([facility]) Nucleated Red Blood Cell % 0.0 % 0-0 Normal (applies to n on-numeric results) [facility] ([facility]) ID Date Data Source [id number] 11/19/2020 10:34:00 AM EST [facility] ([facility] Name Value Range Interpretation Code Description Data Alissa rce(s) Supporting Document(s) Magnesium [Mass/volume] in Serum or Plasma 0.6 mg/dL 1.8-2 .4 Below lower panic limits [facility] ([facility]) Natriuretic peptide.B prohormone N-Terminal [Mass/volu me] in Serum or Plasma 4825 pg/mL [facility] ([facility]) ID Date Data Source [id number] 11/19/2020 10:34:00 AM EST [facility] ([facility] Name Value Range Interpretation Code Description Data Alissa rce(s) Supporting Document(s) White Blood Count 7.9 10 4.0-10.0 [facility] ([facility]) Red Blood Count 3.85 10 4.30-6.10 [facility] ([facility]) Hematocrit 32.5 % 42.0-52.0 [facility] ([facility]) Hemoglobin 10.1 g/dL 13.5-17.5 [facility] ([facility]) Mean Corpuscular Volume 84.4 fl 80.0-96.0 M EDENT ([facility]) Red Cell Distribution Width 19.5 % 11.5-14.5 [facility] ([facility]) Mean Corpuscular Hemoglobin 26.2 pg 27.0-33.0 [facility] ([facility]) Mean Corpuscular HGB Conc 31.1 g/dL 32.0-36.5 [facility] Nucleated Red Blood Cell % 0.0 % 0-0 [facility] ([facility]) Platelet Count, Automated 205 10 150-450 [facility]) ID Date Data Source [id number] 11/19/2020 10:34:00 AM EST [facility] ([facility] Name Value Range Interpretation Code Description Data Alissa rce(s) Supporting Document(s) Glucose, Fasting 124 mg/dL 70-100 [facility] Creatinine For GFR 1.11 mg/dL 0.70-1.30 [facility] ([facility]) Blood Urea Nitrogen 21 mg/dL 7-18 [facility] ([facility]) Sodium Level 134 meq/L 136-145 [facility] ([facility]) Glomerular Filtration Rate Laboratory test result [facility] ([facility]) <content>Units are mL/min/1.73 m2</content>
<content></content>
<content>Chronic Kidney Disease Staging per NKF:</content>
<content></content>
<content>Stage I & II GFR >=60 Normal to Mildly Decreased</content>
<content>Stage III GFR 30- 59 Moderately Decreased</content>
<content>Stage IV GFR 15-29 Severely Decreased</content>
<content>Stage V GFR <15 Very Little GFR Left</content>
<content>ESRD GFR <15 on PARAMEDIC SUPERVISOR</content>
<content></content> Potassium Serum 3.6 meq/L 3.5-5.1 [facility] ([facility]) Anion Gap 10 meq/L 8-16 [facility] Chloride Level 102 meq/L 98-107 [facility] ([facility]) Carbon Dioxide Level 22 meq/L 21-32 [facility] ([facility] Calcium Level 7.6 mg/dL 8.8-10.2 [facility] ([facility]) ID Date Data Source [id number] 11/09/2020 12:00:00 AM EST [facility] Name Value Range Interpretation Code Description Data Alissa rce(s) Supporting Document(s) SARS coronavirus 2 Ag Negative [facility] This lab was ordered by [facility] and reported by [facility]. ID Date Data Source [id number] 10/02/2020 08:27:00 AM EST [facility] ([facility]) Name Value Range Interpretation Code Description Data Alissa rce(s) Supporting Document(s) Cholesterol Level 145 mg/dL Normal (applies to non-numeri c results) [facility]) Triglycerides Level 161 mg/dL Above high normal [facility] ([facility]) Non-HDL-C 116 mg/dL Normal (applies to non-numeric resul ts) [facility] ([facility]) HDL Cholesterol 29 mg/dL Below low normal [facility] ([facility]) LDL Cholesterol 84 mg/dL Normal (applies to non-numeric results) [facility]) Cholesterol Risk Ratio 5.000 Normal (applies to non-n umeric results) [facility]) ID Date Data Source [id number] 10/02/2020 08:27:00 AM EST [facility]) Name Value Range Interpretation Code Description Data Alissa rce(s) Supporting Document(s) Glucose, Fasting 78 mg/dL 70-100 Normal (applies to non-numeric results) [facility] ([facility], ) Creatinine For GFR 0.85 mg/dL 0.70-1.30 Normal (applies to non -numeric results) [facility] ([facility], ) Blood Urea Nitrogen 16 mg/dL 7-18 Normal (applies to non-nume ayaz results) [facility] ([facility], ) Sodium Level 137 meq/L 136-145 Normal (applies to non-numeric res ults) [facility] ([facility]) Potassium Serum 3.9 meq/L 3.5-5.1 Normal (applies to non-numeric results) [facility] ([facility]) Glomerular Filtration Rate Laboratory test result Normal (applies to non- numeric results) [facility] ([facility], ) <content>Units are mL/min/1.73 m2</content>
<content></content>
<content>Chronic Kidney Disease Staging per NKF:</content>
<content></content>
<content>Stage I & II GFR >=60 Normal to Mildly Decreased</content>
<content>Stage III GFR 30- 59 Moderately Decreased</content>
<content>Stage IV GFR 15-29 Severely Decreased</content>
<content>Stage V GFR <15 Very Little GFR Left</content>
<content>ESRD GFR <15 on PARAMEDIC SUPERVISOR</content>
<content></content> Carbon Dioxide Level 26 meq/L 21-32 Normal (applies to non-num giovana results) [facility] ([facility], ) Chloride Level 104 meq/L 98-107 Normal (applies to non-numeric r esults) [facility] ([facility]) Anion Gap 7 meq/L 8-16 Below low normal [facility] ( [facility], ) Calcium Level 8.3 mg/dL 8.8-10.2 Below low normal [facility] T ([facility], ) Ast/Sgot 28 U/L 7-37 Normal (applies to non-numeric resul ts) [facility], ) Bilirubin,Total 0.7 mg/dL 0.2-1.0 Normal (applies to non-numeric results) [facility] ([facility], ) Alt/SGPT 18 U/L 12-78 Normal (applies to non-numeric resul ts) [facility] ([facility]) Alkaline Phosphatase 196 U/L 45-117 Above high normal [facility] ([facility], ) Total Protein 7.4 GM/DL 6.4-8.2 Normal (applies to non-numeric re sults) [facility] ([facility], ) Albumin/Globulin Ratio 0.9 Normal (applies to non-n umeric results) [facility] ([facility]) Albumin 3.4 GM/DL 3.2-5.2 Normal (applies to non-numeric resul ts) [facility] ([facility]) ID Date Data Source [id number] 10/02/2020 08:27:00 AM EST [facility] Name Value Range Interpretation Code Description Data Alissa rce(s) Supporting Document(s) Triglycerides Level 161 mg/dL [facility] ([facility]) Cholesterol Level 145 mg/dL [facility] ([facility]) HDL Cholesterol 29 mg/dL [facility] ([facility]) LDL Cholesterol 84 mg/dL [facility] ([facility]) Non-HDL-C 116 mg/dL [facility] Cholesterol Risk Ratio 5.000 [facility] ([facility]) ID Date Data Source [id number] 10/02/2020 08:27:00 AM EST [facility] ([facility] Name Value Range Interpretation Code Description Data Alissa rce(s) Supporting Document(s) Glucose, Fasting 78 mg/dL 70-100 [facility] ([facility]) Blood Urea Nitrogen 16 mg/dL 7-18 [facility] ([facility]) Glomerular Filtration Rate Laboratory test result [facility]) <content>Units are mL/min/1.73 m2</content>
<content></content>
<content>Chronic Kidney Disease Staging per NKF:</content>
<content></content>
<content>Stage I & II GFR >=60 Normal to Mildly Decreased</content>
<content>Stage III GFR 30- 59 Moderately Decreased</content>
<content>Stage IV GFR 15-29 Severely Decreased</content>
<content>Stage V GFR <15 Very Little GFR Left</content>
<content>ESRD GFR <15 on PARAMEDIC SUPERVISOR</content>
<content></content> Creatinine For GFR 0.85 mg/dL 0.70-1.30 [facility] ([facility]) Potassium Serum 3.9 meq/L 3.5-5.1 [facility] ([facility]) Sodium Level 137 meq/L 136-145 [facility] ([facility]) Chloride Level 104 meq/L 98-107 [facility] ([facility]) Carbon Dioxide Level 26 meq/L 21-32 [facility] ([facility] Anion Gap 7 meq/L 8-16 [facility] Alt/SGPT 18 U/L 12-78 [facility] ([facility] Ast/Sgot 28 U/L 7-37 [facility] Calcium Level 8.3 mg/dL 8.8-10.2 [facility] ([facility]) Bilirubin,Total 0.7 mg/dL 0.2-1.0 [facility] ([facility]) Alkaline Phosphatase 196 U/L 45-117 [facility] ([facility] Albumin/Globulin Ratio 0.9 [facility] ([facility]) Albumin 3.4 GM/DL 3.2-5.2 [facility] ([facility] Total Protein 7.4 GM/DL 6.4-8.2 [facility] ([facility]) ID Date Data Source [id number] 06/25/2020 09:32:00 AM EDT [facility] ([facility]) Name Value Range Interpretation Code Description Data Alissa rce(s) Supporting Document(s) Red Blood Count 4.36 10 4.30-6.10 [facility] ([facility]) White Blood Count 7.0 10 4.0-10.0 [facility] ([facility]) Mean Corpuscular Volume 86.2 fl 80.0-96.0 M [facility] ([facility]) Hematocrit 37.6 % 42.0-52.0 [facility] ([facility]) Hemoglobin 12.0 g/dL 13.5-17.5 [facility] ([facility]) Mean Corpuscular HGB Conc 31.9 g/dL 32.0-36.5 [facility] ([facility]) Mean Corpuscular Hemoglobin 27.5 pg 27.0-33.0 [facility] ([facility]) Platelet Count, Automated 215 10 150-450 [facility] ([facility]) Nucleated Red Blood Cell % 0.0 % 0-0 [facility] ([facility]) Red Cell Distribution Width 15.7 % 11.5-14.5 [facility] ([facility]) ID Date Data Source [id number] 04/07/2020 08:52:00 AM EDT [facility] Name Value Range Interpretation Code Description Data Alissa rce(s) Supporting Document(s) Glucose, Fasting 118 mg/dL 70-100 [facility] Blood Urea Nitrogen 10 mg/dL 7-18 [facility] ([facility] Creatinine For GFR 0.99 mg/dL 0.70-1.30 [facility] ([facility]) Glomerular Filtration Rate Laboratory test result [facility] <content>Units are mL/min/1.73 m2</content>
<content></content>
<content>Chronic Kidney Disease Staging per NKF:</content>
<content></content>
<content>Stage I & II GFR >=60 Normal to Mildly Decreased</content>
<content>Stage III GFR 30- 59 Moderately Decreased</content>
<content>Stage IV GFR 15-29 Severely Decreased</content>
<content>Stage V GFR <15 Very Little GFR Left</content>
<content>ESRD GFR <15 on PARAMEDIC SUPERVISOR</content>
<content></content> Sodium Level 136 meq/L 136-145 [facility]) Chloride Level 97 meq/L 98-107 [facility] ([facility]) Potassium Serum 3.0 meq/L 3.5-5.1 [facility] ([facility]) Anion Gap 13 meq/L 8-16 [facility] Carbon Dioxide Level 26 meq/L 21-32 [facility] ([facility]) Calcium Level 6.5 mg/dL 8.8-10.2 [facility] ([facility]) ID Date Data Source [id number] 04/01/2020 06:57:00 AM EDT [facility] ([facility], ) Name Value Range Interpretation Code Description Data Alissa rce(s) Supporting Document(s) Glucose, Fasting 94 mg/dL 70-100 Normal (applies to non-numeric results) [facility] ([facility]) Blood Urea Nitrogen 14 mg/dL 7-18 Normal (applies to non-nume ayaz results) [facility] ([facility]) Glomerular Filtration Rate Laboratory test result Normal (applies to non- numeric results) [facility] ([facility]) <content>Units are mL/min/1.73 m2</content>
<content></content>
<content>Chronic Kidney Disease Staging per NKF:</content>
<content></content>
<content>Stage I & II GFR >=60 Normal to Mildly Decreased</content>
<content>Stage III GFR 30- 59 Moderately Decreased</content>
<content>Stage IV GFR 15-29 Severely Decreased</content>
<content>Stage V GFR <15 Very Little GFR Left</content>
<content>ESRD GFR <15 on PARAMEDIC SUPERVISOR</content>
<content></content> Creatinine For GFR 0.90 mg/dL 0.70-1.30 Normal (applies to non -numeric results) [facility] ([facility], ) Sodium Level 135 meq/L 136-145 Below low normal [facility] ([facility]) Potassium Serum 3.7 meq/L 3.5-5.1 Normal (applies to non-numeric results) [facility] ([facility]) Testing was performed on a SLIGHTLY hemo lyzed specimen. Suggest recollection of specimen for more accurate test results. Chloride Level 100 meq/L 98-107 Normal (applies to non-numeric r esults) [facility] ([facility]) Calcium Level 6.7 mg/dL 8.8-10.2 Below low normal [facility] ([facility]) Carbon Dioxide Level 27 meq/L 21-32 Normal (applies to non-num giovana results) [facility] ([facility]) Anion Gap 8 meq/L 8-16 Normal (applies to non-numeric resul ts) [facility] ([facility]) ID Date Data Source [id number] 10/11/2019 08:49:00 AM EST [facility] Name Value Range Interpretation Code Description Data Alissa rce(s) Supporting Document(s) Glucose, Fasting 111 mg/dL 70-100 [facility] Creatinine For GFR 1.13 mg/dL 0.70-1.30 [facility] ([facility]) Glomerular Filtration Rate Laboratory test result [facility] ([facility]) <content>Units are mL/min/1.73 m2</content>
<content></content>
<content>Chronic Kidney Disease Staging per NKF:</content>
<content></content>
<content>Stage I & II GFR >=60 Normal to Mildly Decreased</content>
<content>Stage III GFR 30- 59 Moderately Decreased</content>
<content>Stage IV GFR 15-29 Severely Decreased</content>
<content>Stage V GFR <15 Very Little GFR Left</content>
<content>ESRD GFR <15 on PARAMEDIC SUPERVISOR</content>
<content></content> Blood Urea Nitrogen 17 mg/dL 7-18 [facility] ([facility]) Sodium Level 133 meq/L 136-145 [facility] ([facility]) Chloride Level 99 meq/L 98-107 [facility] ([facility]) Potassium Serum 4.9 meq/L 3.5-5.1 [facility] ([facility]) Carbon Dioxide Level 22 meq/L 21-32 [facility] ([facility]) Anion Gap 12 meq/L 8-16 [facility] Calcium Level 8.3 mg/dL 8.8-10.2 [facility] ([facility]) Procedure Vital Signs ID Date Data Source UNK Name Value Range Interpretation Code Description Data Source(s) Body surface area Derived from formula 2.14 m2 2.14 m2 [facility] Body weight 87.772 kg 87.772 kg [facility] ([facility]) [place] body weight 190 [lb_av] 190 [lb_av] [facility] ([facility]) Body mass index (BMI) [Ratio] 24.8 kg/m2 24.8 k g/m2 [facility] ([facility]) Body weight 193.50 [lb_av] 193.50 [lb_av] [facility] ([facility]) Body height 74 [in_i] 74 [in_i] [facility] 6'2" Diastolic blood pressure 46 mm[Hg] 46 mm[Hg] [facility] ([facility]) Systolic blood pressure 98 mm[Hg] 98 mm[Hg] M [facility] ([facility]) Heart rate 84 /min 84 /min [facility] ([facility]) Irregular Body mass index (BMI) [Ratio] 23.9 kg/m2 23.9 k g/m2 [facility] ([facility]) Body height 74 [in_i] 74 [in_i] [facility] ([facility]) 6'2" Body weight 186.00 [lb_av] 186.00 [lb_av] [facility] ([facility]) Diastolic blood pressure 64 mm[Hg] 64 mm[Hg] [facility] ([facility]) sitting, regular cuff Systolic blood pressure 142 mm[Hg] 142 mm[Hg] [facility] sitting, regular cuff Respiratory rate 16 /min 16 /min [facility] ( [facility]) Body weight 180.00 [lb_av] 180.00 [lb_av] [facility] ([facility]) Body temperature 96.2 [degF] 96.2 [degF] [facility] ([facility]) Oxygen saturation in Arterial blood by Pulse oximetry 95 % 95 % [facility] ([facility]) Respiratory rate 18 /min 18 /min [facility] ( [facility]) Heart rate 78 /min 78 /min [facility] ([facility]) Diastolic blood pressure 77 mm[Hg] 77 mm[Hg] [facility] ([facility]) Systolic blood pressure 165 mm[Hg] 165 mm[Hg] [facility] ([facility], [facility]) Diastolic blood pressure 80 mm[Hg] 80 mm[Hg] [facility] ([facility]) sitting Systolic blood pressure 156 mm[Hg] 156 mm[Hg] [facility] sitting Diastolic blood pressure 78 mm[Hg] 78 mm[Hg] [facility] ([facility]) sitting, regular cuff Systolic blood pressure 156 mm[Hg] 156 mm[Hg] [facility] sitting, regular cuff Respiratory rate 16 /min 16 /min [facility] ( [facility]) Heart rate 88 /min 88 /min [facility] ([facility]) Regular Body mass index (BMI) [Ratio] 23.5 kg/m2 23.5 k g/m2 [facility] ([facility]) Body height 74 [in_i] 74 [in_i] [facility] ([facility]) 6'2" Body weight 183.00 [lb_av] 183.00 [lb_av] [facility] ([facility]) [place] body weight 184 [lb_av] 184 [lb_av] [facility] ([facility]) Oxygen saturation in Arterial blood by Pulse oximetry 98 % 98 % [facility] ([facility]) Body temperature 98.7 [degF] 98.7 [degF] [facility] ([facility]) Respiratory rate 22 /min 22 /min [facility] ( [facility]) Heart rate 81 /min 81 /min [facility] ([facility]) Body mass index (BMI) [Ratio] 24.4 kg/m2 24.4 k g/m2 [facility] ([facility]) Body weight 185.12 [lb_av] 185.12 [lb_av] [facility] ([facility]) Body height 73 [in_i] 73 [in_i] [facility] ([facility]) 6'1" Diastolic blood pressure 88 mm[Hg] 88 mm[Hg] [facility] ([facility]) Systolic blood pressure 128 mm[Hg] 128 mm[Hg] [facility] ([facility]) Body surface area Derived from formula 2.11 m2 2.11 m2 [facility] ([facility]) Body weight 84.483 kg 84.483 kg [facility] ([facility]) [place] body weight 190 [lb_av] 190 [lb_av] [facility] Body mass index (BMI) [Ratio] 23.9 kg/m2 23.9 k g/m2 [facility] ([facility]) Body weight 186.25 [lb_av] 186.25 [lb_av] [facility] Body height 74 [in_i] 74 [in_i] [facility] ([facility]) 6'2" Diastolic blood pressure 70 mm[Hg] 70 mm[Hg] [facility] ([facility]) Systolic blood pressure 122 mm[Hg] 122 mm[Hg] [facility] ([facility]) Diastolic blood pressure 76 mm[Hg] 76 mm[Hg] [facility] ([facility]) sitting Systolic blood pressure 132 mm[Hg] 132 mm[Hg] [facility] ([facility]) sitting Diastolic blood pressure 76 mm[Hg] 76 mm[Hg] [facility] ([facility]) sitting, regular cuff Systolic blood pressure 136 mm[Hg] 136 mm[Hg] [facility] sitting, regular cuff Respiratory rate 16 /min 16 /min [facility] ( [facility]) Heart rate 84 /min 84 /min [facility] ([facility]) Regular Body mass index (BMI) [Ratio] 23.8 kg/m2 23.8 k g/m2 [facility] ([facility]) Body height 74 [in_i] 74 [in_i] [facility] ([facility]) 6'2" Body weight 185.00 [lb_av] 185.00 [lb_av] [facility] ([facility]) Body weight 86.184 kg 86.184 kg [facility] ([facility]) Body mass index (BMI) [Ratio] 24.4 kg/m2 24.4 k g/m2 [facility] ([facility]) Body weight 190.00 [lb_av] 190.00 [lb_av] [facility] ([facility]) Body height 74 [in_i] 74 [in_i] [facility] 6'2" Diastolic blood pressure 70 mm[Hg] 70 mm[Hg] [facility] ([facility]) Systolic blood pressure 150 mm[Hg] 150 mm[Hg] [facility] ([facility]) Body weight 88.962 kg 88.962 kg [facility] ([facility]) Body mass index (BMI) [Ratio] 25.2 kg/m2 25.2 k g/m2 [facility] ([facility]) Body weight 196.12 [lb_av] 196.12 [lb_av] [facility] ([facility]) Body height 74 [in_i] 74 [in_i] [facility] 6'2" Diastolic blood pressure 82 mm[Hg] 82 mm[Hg] [facility] ([facility]) Systolic blood pressure 168 mm[Hg] 168 mm[Hg] [facility] ([facility], ) [place] body weight 184 [lb_av] 184 [lb_av] [facility] ([facility]) Oxygen saturation in Arterial blood by Pulse oximetry 99 % 99 % [facility] ([facility]) Body temperature 98.6 [degF] 98.6 [degF] [facility] ([facility]) Respiratory rate 18 /min 18 /min [facility] ( [facility]) Heart rate 62 /min 62 /min [facility] ([facility]) Body mass index (BMI) [Ratio] 26.0 kg/m2 26.0 k g/m2 [facility] ([facility]) Body weight 197.00 [lb_av] 197.00 [lb_av] [facility] ([facility]) Body height 73 [in_i] 73 [in_i] [facility] ([facility]) 6'1" Diastolic blood pressure 82 mm[Hg] 82 mm[Hg] [facility] ([facility]) Systolic blood pressure 126 mm[Hg] 126 mm[Hg] [facility] Diastolic blood pressure 68 mm[Hg] 68 mm[Hg] [facility]) Sitting, regular cuff Systolic blood pressure 134 mm[Hg] 134 mm[Hg] [facility]) Sitting, regular cuff Respiratory rate 16 /min 16 /min [facility] ( [facility]) Heart rate 76 /min 76 /min [facility] ([facility]) Regular Body mass index (BMI) [Ratio] 25.0 kg/m2 25.0 k g/m2 [facility] ([facility]) Body height 74 [in_i] 74 [in_i] [facility] ([facility]) 6'2" Body weight 195.00 [lb_av] 195.00 [lb_av] [facility] ([facility])
[2020-12-03 18:42] VITALS: BP 125/90
[2020-12-03] MEDS: TORSEMIDE 10 MG TABLET PO SCH (20:01)
[2020-12-03 20:24] LABS: HEMATOCRIT 29.8 % (42.0-52.0); HEMOGLOBIN 9.1 g/dl (13.5-17.5)
[2020-12-03] MEDS: DOCUSATE SODIUM 100MG CAPSULE PO SCH (21:00)
[2020-12-03 21:07] VITALS: BP 117/60
[2020-12-03] MEDS: PRAVASTATIN 20 MG TAB PO SCH (22:37)
[2020-12-04 06:00] VITALS: BP 120/61
[2020-12-04 06:28] LABS: BASO # 0.1 10^3/uL (0.0-0.2); EOS # 0.5 10^3/uL (0.0-0.5); EOS % 5.6 % (0.0-3.0); HEMATOCRIT 28.5 % (42.0-52.0); HEMOGLOBIN 8.8 g/dl (13.5-17.5); LYMPH # 1.6 10^3/uL (1.5-5.0); LYMPH % 18.2 % (24.0-44.0); MEAN CORPUSCULAR HEMOGLOBIN 27.2 pg (27.0-33.0); MEAN CORPUSCULAR HGB CONC 30.9 g/dl (32.0-36.5); MONO # 1.1 10^3/uL (0.0-0.8); NEUTROPHILS # 5.7 10^3/uL (1.5-8.5); NEUTROPHILS % 62.8 % (36.0-66.0); PLATELET COUNT, AUTOMATED 253 10^3/uL (150-450); RED BLOOD COUNT 3.24 10^6/uL (4.30-6.10)
[2020-12-04 06:47] LABS: ALBUMIN 3.2 GM/DL (3.2-5.2); ALT/SGPT 22 U/L (12-78); BILIRUBIN,TOTAL 0.4 MG/DL (0.2-1.0); BLOOD UREA NITROGEN 30 MG/DL (7-18); CALCIUM LEVEL 9.5 MG/DL (8.8-10.2); CARBON DIOXIDE LEVEL 23 MEQ/L (21-32); CHLORIDE LEVEL 108 MEQ/L (98-107); CREATININE FOR GFR 1.14 MG/DL (0.70-1.30); GLOMERULAR FILTRATION RATE > 60.0 (>42); GLUCOSE, FASTING 113 MG/DL (70-100); MAGNESIUM LEVEL 1.8 MG/DL (1.8-2.4); POTASSIUM SERUM 4.4 MEQ/L (3.5-5.1); SODIUM LEVEL 139 MEQ/L (136-145); TOTAL PROTEIN 7.3 GM/DL (6.4-8.2)
[2020-12-04] MEDS: DOCUSATE SODIUM 100MG CAPSULE PO SCH ×2 (09:00→20:22)
[2020-12-04] MEDS: FAMOTIDINE 20 MG TAB PO SCH (09:29)
[2020-12-04] MEDS: SPIRONOLACTONE 12.5MG PER 1/2 TABLET PO SCH (09:30)
[2020-12-04] MEDS: OMEPRAZOLE 20 MG CAP PO SCH (09:30)
[2020-12-04] MEDS: ramipriL 5 MG CAP PO SCH (09:30)
[2020-12-04] MEDS: bisoproloL fumarate 10 MG TAB PO SCH (09:30)
[2020-12-04] MEDS: TORSEMIDE 10 MG TABLET PO SCH ×2 (09:30→17:20)
--- NOTE | 2020-12-04 09:59 | IPNPDOC ---
Date Seen The patient was seen on 12/04/20. Progress Note SUBJECTIVE: 70-year-old male with a history of CAD s/p CABG 2007, atrial flutter on Xarelto, hypertension, COPD, peripheral arterial disease, presented to ER with symptomatic anemia and report of melena for the past month. GI was consulted, planned for endoscopy. Patient seen and examined at bedside this morning. Doing well. Denies any melena or dark stools overnight. Denies chest pain, seizures of breath, fevers, chills, nausea, vomiting or diarrhea. OBJECTIVE PHYSICAL EXAMINATION: VITAL SIGNS: please see below General: NAD, comfortable HEENT: PERRLA, EOMI, sclerae clear Neck: supple, normal ROM, no JVD Respiratory: lungs CTAB, no wheeze, no rales, no crackles CVS: RRR, normal S1, S2, no murmurs Abdo: soft, no masses, no hepatosplenomegaly, BS+, no rebound tenderness Extremities: no edema, pulses 2+ MSK: no joint deformities, normal ROM Neuro: no focal neuro deficits, moving all 4 extremities, CN2-12 intact. Strength 5/5 in all 4 extremities. No nystagmus. Psych: calm, cooperative, AAO x 3 LABORATORY DATA, IMAGING STUDIES, MICROBIOLOGY: Please see below. DVT prophylaxis ordered?: SCDs and teds. Holding Lovenox and Xarelto. ASSESSMENT AND PLAN: #Symptomatic anemia - c/o dark stools for a month, with weight loss - Hgb 9.1 s/p 1 unit pRBC. 8.8 this morning. - GI consulted, d/w Dr. Saucedo for endoscopy, plan for 12/05/20 - Clear liquid diet - hold xarelto x 2 days (last taken on 12/02/20 in PM) - PPI #CAD s/p CABG - hold asa - continue with statin #Aflutter - seen EKG - hold xarelto - tele #CHF - no prior echo available - follows with Dr. Gonzales - resume home meds, appears euvolemic - bisoprolol, torsemide, spironolactone - K+ and Mg2+ are wnl #HTN - BP well controlled - resume home med #COPD - stable, resume home inhalers #HLD - statin DVT ppx: hold lovenox, hold xarelto. SCDs, TEDs. VS, I&O, 24H, Fishbone Vital Signs/I&O Vital Signs Date Time Temp Pulse Resp B/P (MAP) Pulse Ox O2 Delivery O2 Flow Rate FiO2 12/04/20 09:30 114/60 12/04/20 09:30 84 12/04/20 06:00 97.8 18 95 Room Air I&O- Last 24 Hours up to 6 AM 12/04/20 06:00 Intake Total 1300 ml Output Total 0 ml Balance 1300 ml Laboratory Data 24H LABS Laboratory Tests 2 12/03/20 15:34: Coronavirus (COVID-19)(PCR) NEGATIVE, Influenza Type A (RT-PCR) NEGATIVE, Influenza Type B (RT-PCR) NEGATIVE, Respiratory Syncytial Virus (PCR) NEGATIVE 12/03/20 15:35: POC Glucose (Misc Panel) 107H, POC Sodium (Misc Panel) 141, POC Potassium (Misc Panel) 4.9, POC Chloride (Misc Panel) 106, POC Total CO2 (Misc Panel) 27.0, POC Blood Urea Nitrogen (Misc Panel 35H, POC Ionized Calcium (Misc Panel) 5.2, POC Creatinine (Misc Panel) 1.4H, POC Hematocrit (Misc Panel) 28.0L 12/03/20 16:19: Prothrombin Time 16.8H, Prothromb Time International Ratio 1.33, Activated Partial Thromboplast Time 35.8, Total Creatine Kinase 98, Creatine Kinase MB 3.3, Creatine Kinase MB Relative Index 3.37, Troponin I < 0.02 12/04/20 05:55: Immature Granulocyte % (Auto) 0.4, Neutrophils (%) (Auto) 62.8, Lymphocytes (%) (Auto) 18.2L, Monocytes (%) (Auto) 12.0H, Eosinophils (%) (Auto) 5.6H, Basophils (%) (Auto) 1.0, Neutrophils # (Auto) 5.7, Lymphocytes # (Auto) 1.6, Monocytes # (Auto) 1.1H, Eosinophils # (Auto) 0.5, Basophils # (Auto) 0.1, Nucleated Red Blood Cells % (auto) 0.0, Anion Gap 8, Glomerular Filtration Rate > 60.0, Calcium Level 9.5, Magnesium Level 1.8, Total Bilirubin 0.4, Aspartate Amino Transf (AST/SGOT) 21, Alanine Aminotransferase (ALT/SGPT) 22, Alkaline Phosphatase 190H, Total Protein 7.3, Albumin 3.2, Albumin/Globulin Ratio 0.8 CBC/BMP Laboratory Tests 12/03/20 20:14 12/04/20 05:55 JENNI VALENZUELA MD Dec 04, 2020 09:59
[2020-12-04] MEDS ORDERED: MOM 30ML SUSPENSION UDC PO ONE (13:15)
[2020-12-04 14:00] VITALS: BP 104/58
[2020-12-04] MEDS ORDERED: POLYETHYLENE GLYCOL (MIRALAX) 238GM BOTTLE PO ONE (17:00)
[2020-12-04] MEDS: PRAVASTATIN 20 MG TAB PO SCH (20:22)
[2020-12-04 22:00] VITALS: BP 103/60
[2020-12-05] VITALS (7 sets, daily range): BP systolic 99–114; BP diastolic 60–71
[2020-12-05 05:55] LABS: BASO # 0.1 10^3/uL (0.0-0.2); EOS # 0.6 10^3/uL (0.0-0.5); EOS % 6.3 % (0.0-3.0); HEMATOCRIT 30.5 % (42.0-52.0); HEMOGLOBIN 9.3 g/dl (13.5-17.5); LYMPH # 1.7 10^3/uL (1.5-5.0); LYMPH % 19.8 % (24.0-44.0); MEAN CORPUSCULAR HEMOGLOBIN 26.7 pg (27.0-33.0); MEAN CORPUSCULAR HGB CONC 30.5 g/dl (32.0-36.5); MEAN CORPUSCULAR VOLUME 87.6 fl (80.0-96.0); MONO # 1.1 10^3/uL (0.0-0.8); MONO % 12.5 % (0.0-5.0); NEUTROPHILS # 5.2 10^3/uL (1.5-8.5); NEUTROPHILS % 60.1 % (36.0-66.0); PLATELET COUNT, AUTOMATED 278 10^3/uL (150-450); RED BLOOD COUNT 3.48 10^6/uL (4.30-6.10)
[2020-12-05 06:17] LABS: WHITE BLOOD COUNT 8.7 10^3/uL (4.0-10.0)
[2020-12-05 06:21] LABS: ALBUMIN 3.4 GM/DL (3.2-5.2); BILIRUBIN,TOTAL 0.6 MG/DL (0.2-1.0); CALCIUM LEVEL 9.9 MG/DL (8.8-10.2); CREATININE FOR GFR 1.4 MG/DL (0.70-1.30); POTASSIUM SERUM 4.2 MEQ/L (3.5-5.1); TOTAL PROTEIN 7.7 GM/DL (6.4-8.2)
[2020-12-05] MEDS ORDERED: POLYETHYLENE GLYCOL (MIRALAX) 238GM BOTTLE PO ONE (07:00)
[2020-12-05] MEDS: OMEPRAZOLE 20 MG CAP PO SCH (08:59)
[2020-12-05] MEDS: TORSEMIDE 10 MG TABLET PO SCH (08:59)
[2020-12-05] MEDS: SPIRONOLACTONE 12.5MG PER 1/2 TABLET PO SCH (08:59)
[2020-12-05] MEDS: DOCUSATE SODIUM 100MG CAPSULE PO SCH ×2 (08:59→20:20)
[2020-12-05] MEDS: FAMOTIDINE 20 MG TAB PO SCH (09:00)
[2020-12-05] MEDS: bisoproloL fumarate 10 MG TAB PO SCH (09:00)
[2020-12-05] MEDS: ramipriL 5 MG CAP PO SCH (09:00)
--- NOTE | 2020-12-05 09:57 | IPNPDOC ---
Date Seen The patient was seen on 12/05/20. Progress Note SUBJECTIVE: 70-year-old male with a history of CAD s/p CABG 2007, atrial flutter on Xarelto, hypertension, COPD, peripheral arterial disease, presented to ER with symptomatic anemia and report of melena for the past month. GI was consulted, planned for endoscopy. Patient seen and examined at bedside this morning. Doing well. Denies any melena or dark stools overnight. VSS. Afebrile. Denies chest pain, seizures of breath, fevers, chills, nausea, vomiting or diarrhea. NPO for endoscopy today by Dr. Saucedo. Completed bowel prep. OBJECTIVE PHYSICAL EXAMINATION: VITAL SIGNS: please see below General: NAD, comfortable HEENT: PERRLA, EOMI, sclerae clear Neck: supple, normal ROM, no JVD Respiratory: lungs CTAB, no wheeze, no rales, no crackles CVS: RRR, normal S1, S2, no murmurs Abdo: soft, no masses, no hepatosplenomegaly, BS+, no rebound tenderness Extremities: no edema, pulses 2+ MSK: no joint deformities, normal ROM Neuro: no focal neuro deficits, moving all 4 extremities, CN2-12 intact. Strength 5/5 in all 4 extremities. No nystagmus. Psych: calm, cooperative, AAO x 3 LABORATORY DATA, IMAGING STUDIES, MICROBIOLOGY: Please see below. DVT prophylaxis ordered?: SCDs and teds. Holding Lovenox and Xarelto. ASSESSMENT AND PLAN: #Symptomatic anemia - c/o dark stools for a month, with weight loss - Hgb 9.1 s/p 1 unit pRBC. 8.8 this morning. - GI consulted, d/w Dr. Saucedo for endoscopy, plan for 12/05/20 - Clear liquid diet - hold xarelto x 2 days (last taken on 12/02/20 in PM) - PPI #Mild ROBYN - Cr 1.41, possibly due to overdiuresis, GI losses from bowel prep - IVF at 125 cc/hr - hold furosemide, torsemide #CAD s/p CABG - hold asa - continue with statin #Aflutter - seen EKG - hold xarelto - tele #CHF - no prior echo available - follows with Dr. Gonzales - resume home meds, appears euvolemic - bisoprolol, torsemide, spironolactone - K+ and Mg2+ are wnl #HTN - BP well controlled - resume home med #COPD - stable, resume home inhalers #HLD - statin DVT ppx: hold lovenox, hold xarelto. SCDs, TEDs. VS, I&O, 24H, Fishbone Vital Signs/I&O Vital Signs Date Time Temp Pulse Resp B/P (MAP) Pulse Ox O2 Delivery O2 Flow Rate FiO2 12/05/20 09:00 124/68 12/05/20 09:00 75 12/05/20 06:00 98.1 18 92 Room Air I&O- Last 24 Hours up to 6 AM 12/05/20 06:00 Intake Total 1550 ml Output Total 0 ml Balance 1550 ml Laboratory Data 24H LABS Laboratory Tests 2 12/05/20 05:37: Immature Granulocyte % (Auto) 0.3, Neutrophils (%) (Auto) 60.1, Lymphocytes (%) (Auto) 19.8L, Monocytes (%) (Auto) 12.5H, Eosinophils (%) (Auto) 6.3H, Basophils (%) (Auto) 1.0, Neutrophils # (Auto) 5.2, Lymphocytes # (Auto) 1.7, Monocytes # (Auto) 1.1H, Eosinophils # (Auto) 0.6H, Basophils # (Auto) 0.1, Nucleated Red Blood Cells % (auto) 0.0, Anion Gap 10, Glomerular Filtration Rate 53.0, Calcium Level 9.9, Magnesium Level 2.0, Total Bilirubin 0.6, Aspartate Amino Transf (AST/SGOT) 23, Alanine Aminotransferase (ALT/SGPT) 21, Alkaline Phosphatase 197H, Total Protein 7.7, Albumin 3.4, Albumin/Globulin Ratio 0.8 CBC/BMP Laboratory Tests 12/05/20 05:37 JENNI VALENZUELA MD Dec 05, 2020 09:56
[2020-12-05] MEDS: NS 1,000 ML IV SCH ×2 (11:10→23:16)
[2020-12-05] MEDS ORDERED: LIDOCAINE 2% 100MG/5ML SDV (FOR ANES.) As Ordered ONE (17:02)
[2020-12-05] MEDS ORDERED: propofoL 200 MG/20 ML VIAL As Ordered ONE ×3 (17:02→18:35)
[2020-12-05] MEDS ORDERED: fentaNYL 100 MCG/2 ML INJECTION (J3010) As Ordered ONE (17:35)
[2020-12-05] MEDS ORDERED: PHENYLephrine 500MCG 5ML (100MCG/ML) SYRINGE As Ordered ONE ×2 (17:55→18:14)
[2020-12-05] MEDS ORDERED: ePHEDrine SULFATE 25 MG/5 ML(5MG/ML) SYRINGE As Ordered ONE ×2 (17:55→18:32)
--- NOTE | 2020-12-05 18:45 | ROOR ---
Patient Name: Rogers Hernandez Procedure Date: 12/05/2020 5:15 PM Date of : 1950 Age: 70 Gender: Male Note Status: Finalized Procedure: Upper GI endoscopy Indications: Iron deficiency anemia Providers: Jaspal SAUCEDO MD Referring MD: 2. Inpatient 2. Inpatient Requesting Provider: Medicines: Monitored Anesthesia Care Complications: No immediate complications. Procedure: Pre-Anesthesia Assessment: - The heart rate, respiratory rate, oxygen saturations, blood pressure, adequacy of pulmonary ventilation, and response to care were monitored throughout the procedure. The Endoscope was introduced through the mouth, and advanced to the second part of duodenum. The upper GI endoscopy was accomplished without difficulty. The patient tolerated the procedure well. Findings: The examined esophagus was normal. The entire examined stomach was normal. A moderate likely post-ulcer deformity was found in the duodenal bulb. The exam of the duodenum was otherwise normal. Impression: - Normal esophagus. - Normal stomach. - Benign appearing duodenal bulb deformity/scarring--surgery vs post ulcer vs deep diverticulum/fistula. - No specimens collected. Recommendation: - Outpatient follow up- to be scheduled for an upper GI series and small bowel follow through (define anatomy). Procedure Code(s): --- Professional --- 70034, Esophagogastroduodenoscopy, flexible, transoral; diagnostic, including collection of specimen(s) by brushing or washing, when performed (separate procedure) Diagnosis Code(s): --- Professional --- D50.9, Iron deficiency anemia, unspecified K31.89, Other diseases of stomach and duodenum CPT copyright 2019 [employer]. All rights reserved. The codes documented in this report are preliminary and upon remote coders review may be revised to meet current compliance requirements. Jaspal Saucedo MD Jaspal SAUCEDO MD 12/05/2020 6:45:07 PM Electronically signed by Jaspal SAUCEDO MD Number of Addenda: 0 Note Initiated On: 12/05/2020 5:15 PM Estimated Blood Loss: Estimated blood loss: none.
--- NOTE | 2020-12-05 18:57 | ROOR ---
Patient Name: Rogers Hernandez Procedure Date: 12/05/2020 5:16 PM Date of : 1950 Age: 70 Gender: Male Note Status: Finalized Procedure: Colonoscopy Indications: Iron deficiency anemia Providers: Jaspal SAUCEDO MD Referring MD: 2. Inpatient 2. Inpatient Requesting Provider: Medicines: Monitored Anesthesia Care Complications: No immediate complications. Procedure: Pre-Anesthesia Assessment: - The heart rate, respiratory rate, oxygen saturations, blood pressure, adequacy of pulmonary ventilation, and response to care were monitored throughout the procedure. The Colonoscope was introduced through the anus and advanced to 10 cm into the ileum. The colonoscopy was performed without difficulty. The patient tolerated the procedure well. The quality of the bowel preparation was good. Findings: The perianal and digital rectal examinations were normal. Two flat polyps were found in the transverse colon. The polyps were 5 to 8 mm in size. These polyps were removed with a cold snare. Resection and retrieval were complete. To prevent bleeding after the polypectomy, three hemostatic clips were successfully placed. A sessile small mass was found in the descending colon. The mass measured two cm in length. The polyp was removed with a piecemeal technique using a cold snare. Polyp resection was incomplete, and the resected tissue was partially retrieved. Area was tattooed with an injection of Linda ink. To prevent bleeding after the polypectomy, three hemostatic clips were successfully placed. A polypoid medium-sized mass was found in the proximal sigmoid colon. The mass measured two cm in length. This was biopsied with a cold forceps for histology. Area was tattooed with an injection of Linda ink. Mild sigmoid diverticulosis and small internal hemorrhoids. The exam was otherwise without abnormality on direct and retroflexion views. Impression: - Two 5 to 8 mm polyps in the transverse colon, removed with a cold snare. Resected and retrieved. Clips were placed. - Likely 2 cm sessile likely benign tumor in the descending colon. Tissue was PARTIALLY removed. Tattooed. Clips were placed. - Likely 2 cm polypoid, broadly stalked likely benign tumor in the proximal sigmoid colon. NOT REMOVED. Biopsied. Tattooed. - Mild sigmoid diverticulosis and small internal hemorrhoids. - The examination was otherwise normal on direct and retroflexion views. Recommendation: - Await pathology results. - If the pathology report is benign, then repeat colonoscopy for surveillance/retreatment based on pathology results in 3 months. - If the pathology report is malignant, then refer to a surgeon. - Resume Xarelto (rivaroxaban) at prior dose in 3 days. - Return to my office in 1 month. Procedure Code(s): --- Professional --- 46395, Colonoscopy, flexible; with removal of tumor(s), polyp(s), or other lesion(s) by snare technique 36584, Colonoscopy, flexible; with directed submucosal injection(s), any substance 98696, 59, Colonoscopy, flexible; with biopsy, single or multiple Diagnosis Code(s): --- Professional --- D50.9, Iron deficiency anemia, unspecified D49.0, Neoplasm of unspecified behavior of digestive system K63.5, Polyp of colon CPT copyright 2019 [employer]. All rights reserved. The codes documented in this report are preliminary and upon shipping and receiving review may be revised to meet current compliance requirements. Jaspal Saucedo MD Jaspal SAUCEDO MD 12/05/2020 6:57:06 PM Electronically signed by Jaspal SAUCEDO MD Number of Addenda: 0 Note Initiated On: 12/05/2020 5:16 PM Estimated Blood Loss: Estimated blood loss: none.
[2020-12-05] MEDS ORDERED: fentaNYL 100 MCG/2 ML INJECTION (J3010) IV PRN (19:15)
[2020-12-05] MEDS ORDERED: LR 1,000 ML IV SCH (19:15)
[2020-12-05] MEDS: PRAVASTATIN 20 MG TAB PO SCH (20:20)
[2020-12-06] VITALS: BP 110/71
[2020-12-06 01:00] VITALS: BP 108/60
[2020-12-06 06:00] VITALS: BP 105/59
[2020-12-06 06:27] LABS: BASO # 0.1 10^3/uL (0.0-0.2); BASO % 0.9 % (0.0-1.0); EOS # 0.3 10^3/uL (0.0-0.5); EOS % 4.5 % (0.0-3.0); HEMATOCRIT 30.2 % (42.0-52.0); HEMOGLOBIN 9.4 g/dl (13.5-17.5); LYMPH # 0.9 10^3/uL (1.5-5.0); LYMPH % 12.4 % (24.0-44.0); MEAN CORPUSCULAR HEMOGLOBIN 27.7 pg (27.0-33.0); MEAN CORPUSCULAR HGB CONC 31.1 g/dl (32.0-36.5); MEAN CORPUSCULAR VOLUME 89.1 fl (80.0-96.0); MONO # 0.8 10^3/uL (0.0-0.8); NEUTROPHILS # 5.4 10^3/uL (1.5-8.5); NEUTROPHILS % 70.9 % (36.0-66.0); PLATELET COUNT, AUTOMATED 232 10^3/uL (150-450); RED BLOOD COUNT 3.39 10^6/uL (4.30-6.10); WHITE BLOOD COUNT 7.6 10^3/uL (4.0-10.0)
[2020-12-06 06:52] LABS: ALBUMIN 3.2 GM/DL (3.2-5.2); ALT/SGPT 22 U/L (12-78); BILIRUBIN,TOTAL 0.8 MG/DL (0.2-1.0); BLOOD UREA NITROGEN 24 MG/DL (7-18); CALCIUM LEVEL 9.4 MG/DL (8.8-10.2); CARBON DIOXIDE LEVEL 24 MEQ/L (21-32); CHLORIDE LEVEL 105 MEQ/L (98-107); CREATININE FOR GFR 1.17 MG/DL (0.70-1.30); GLOMERULAR FILTRATION RATE > 60.0 (>42); GLUCOSE, FASTING 92 MG/DL (70-100); POTASSIUM SERUM 4.1 MEQ/L (3.5-5.1); SODIUM LEVEL 138 MEQ/L (136-145); TOTAL PROTEIN 7.3 GM/DL (6.4-8.2)
[2020-12-06] MEDS: NS 1,000 ML IV SCH ×2 (08:19→08:28)
[2020-12-06] MEDS: FAMOTIDINE 20 MG TAB PO SCH (08:21)
[2020-12-06] MEDS: OMEPRAZOLE 20 MG CAP PO SCH (08:21)
[2020-12-06] MEDS: DOCUSATE SODIUM 100MG CAPSULE PO SCH (08:22)
[2020-12-06 08:28] VITALS: BP 104/57
[2020-12-06] MEDS: ramipriL 5 MG CAP PO SCH (08:28)
[2020-12-06] MEDS: bisoproloL fumarate 10 MG TAB PO SCH (08:28)
[2020-12-06] MEDS: SPIRONOLACTONE 12.5MG PER 1/2 TABLET PO SCH (09:00)
[2020-12-06] MEDS: TORSEMIDE 10 MG TABLET PO SCH (09:00)
[2020-12-06 10:00] VITALS: BP 106/58
--- NOTE | 2020-12-06 12:22 | DS.PDOC ---
Discharge Summary General Date of Admission Dec 03, 2020 at 18:27 Date of Discharge 12/06/20 Discharge Summary PROCEDURES PERFORMED DURING STAY: colonoscopy ADMITTING DIAGNOSES: #GI bleed SECONDARY DIAGNOSES: CAD s/p CABG 2007 Atrial flutter on xarelto HTN HLD COPD PAD s/p bilateral iliac stents 04/2020 COMPLICATIONS/CHIEF COMPLAINT: Symptomatic Anemia. HISTORY OF PRESENT ILLNESS: 70-year-old male with a history of CAD s/p CABG 2007, atrial flutter on Xarelto, hypertension, COPD, peripheral arterial disease, presented to ER with symptomatic anemia and report of melena for the past month. He has been seeing his PCP regularly and has noted hemoglobin downtrend from 12 to 10 to now 8.5 in the ED. Patient was Hemoccult positive. Dr. Saucedo was consulted from the ED, recommends holding Xarelto for 2 days and patient will be planned for endoscopy while in the patient. Last dose of xarelto was on evening of 12/02/20. Patient denies active gross melena or bright red blood per rectum. Instead he reports approximately an 8-10 pound loss in the last 30-45 days as well as black stool. He denies any hemoptysis, hematemesis, chest pain, seizures of breath, nausea, vomiting, diarrhea. He did have 3 days of lightheadedness and dizziness, which has now resolved. He was transferred 1 unit of packed red blood cells in the ED. Patient will be admitted to hospitalist service for workup of anemia, likely due to GI bleed. HOSPITAL COURSE: #Symptomatic anemia - c/o dark stools for a month, with weight loss - s/p colonoscopy with large polyps - some resected - hold anti-coagulation for 5 days as per GI recs #Mild ROBYN - resolved #CAD s/p CABG #Aflutter - as above hold anticoagulation for 5 days #CHF - compensated - hold diuretics for 3 days #HTN - BP well controlled #COPD - stable, resume home inhalers #HLD - statin DISCHARGE MEDICATIONS: Please see below. ALLERGIES: Please see below. PHYSICAL EXAMINATION ON DISCHARGE: VITAL SIGNS: Please see below. General: NAD, comfortable HEENT: PERRLA, EOMI, sclerae clear Neck: supple, normal ROM, no JVD Respiratory: lungs CTAB, no wheeze, no rales, no crackles CVS: RRR, normal S1, S2, no murmurs Abdo: soft, no masses, no hepatosplenomegaly, BS+, no rebound tenderness Extremities: no edema, pulses 2+ Psych: calm, cooperative, AAO x 3 LABORATORY DATA: Please see below. ACTIVITY: [As tolerated]. DISPOSITION: 01 Home, Self-Care. DISCHARGE INSTRUCTIONS: 1. PCP in 3-5 days 2. Hold anticoagulation for 5 days 3. hold diuretics for 3 days 4. follow up results of pathology - repeat colonoscopy in 3 months, if malignant then referral to surgery DISCHARGE CONDITION: [Stable]. TIME SPENT ON DISCHARGE: 35 minutes. Vital Signs/I&Os Vital Signs Date Time Temp Pulse Resp B/P (MAP) Pulse Ox O2 Delivery O2 Flow Rate FiO2 12/06/20 10:00 97.2 100 18 106/58 (74) 98 Room Air 12/05/20 23:00 1.0 I&O- Last 24 Hours up to 6 AM 12/06/20 06:00 Intake Total 2067.5 ml Output Total 400 ml Balance 1667.5 ml Laboratory Data Labs 24H Laboratory Tests 2 12/06/20 05:53: Immature Granulocyte % (Auto) 0.3, Neutrophils (%) (Auto) 70.9H, Lymphocytes (%) (Auto) 12.4L, Monocytes (%) (Auto) 11.0H, Eosinophils (%) (Auto) 4.5H, Basophils (%) (Auto) 0.9, Neutrophils # (Auto) 5.4, Lymphocytes # (Auto) 0.9L, Monocytes # (Auto) 0.8, Eosinophils # (Auto) 0.3, Basophils # (Auto) 0.1, Nucleated Red Blood Cells % (auto) 0.0, Anion Gap 9, Glomerular Filtration Rate > 60.0, Calcium Level 9.4, Magnesium Level 2.0, Total Bilirubin 0.8, Aspartate Amino Transf (AST/SGOT) 26, Alanine Aminotransferase (ALT/SGPT) 22, Alkaline Phosphatase 178H, Total Protein 7.3, Albumin 3.2, Albumin/Globulin Ratio 0.8 CBC/BMP Laboratory Tests 12/06/20 05:53 Discharge Medications Scheduled Aspirin (Aspirin EC) 81 Mg Tablet.dr, 81 MG PO DAILY, (Reported) Bisoprolol Fumarate (Bisoprolol Fumarate) 10 Mg Tablet, 10 MG PO DAILY, (Reported) Famotidine (Famotidine) 40 Mg Tablet, 40 MG PO DAILY, (Reported) Magnesium Chloride (Mag64) 64 Mg Tablet.dr, 128 MG PO BID, (Reported) Omeprazole (Omeprazole) 20 Mg Capsule.dr, 20 MG PO DAILY, (Reported) Pravastatin Sodium (Pravastatin Sodium) 20 Mg Tablet, 20 MG PO QHS, (Reported) Ramipril (Ramipril) 10 Mg Capsule, 10 MG PO DAILY, (Reported) Scheduled PRN Azelastine HCl (Azelastine HCl) 0.1% [place].pump, 2 SPRAY NARES BID PRN for ALLERGIES, (Reported) Allergies Coded Allergies: Penicillins (Verified Allergy, Unknown, RED RASH, 12/03/20) YECENIA STARKS MD Dec 06, 2020 12:22
== END 2020-12-06 11:38 | disposition home or self-care (01) | DRG 378 ==
LOC: M ED 14:55 → M ED INP 18:27 → M MSPAV 21:06
PROVIDERS: ADMIT Family Medicine; ATTEND Internal Medicine
PROC: 30233N1 Transfusion of Nonautologous Red Blood Cells into Peripheral Vein, Percutaneous Approach (ICD-10-PCS; 2020-12-03)
PROC: 0DBL8ZX Excision of Transverse Colon, Via Natural or Artificial Opening Endoscopic, Diagnostic (ICD-10-PCS; 2020-12-05)
PROC: 0W3P8ZZ Control Bleeding in Gastrointestinal Tract, Via Natural or Artificial Opening Endoscopic (ICD-10-PCS; 2020-12-05)
PROC: 0DBN8ZX Excision of Sigmoid Colon, Via Natural or Artificial Opening Endoscopic, Diagnostic (ICD-10-PCS; 2020-12-05)
PROC: 0DBM8ZX Excision of Descending Colon, Via Natural or Artificial Opening Endoscopic, Diagnostic (ICD-10-PCS; 2020-12-05)
PROC: 0DJ08ZZ Inspection of Upper Intestinal Tract, Via Natural or Artificial Opening Endoscopic (ICD-10-PCS; principal; 2020-12-05 16:01)
DX: K92.2 Gastrointestinal hemorrhage, unspecified (principal); I48.92 Unspecified atrial flutter; N17.9 Acute kidney failure, unspecified; I25.10 Atherosclerotic heart disease of native coronary artery without angina pectoris; I11.0 Hypertensive heart disease with heart failure; J44.9 Chronic obstructive pulmonary disease, unspecified; I73.9 Peripheral vascular disease, unspecified; R63.4 Abnormal weight loss; D12.3 Benign neoplasm of transverse colon; D12.5 Benign neoplasm of sigmoid colon; K57.30 Diverticulosis of large intestine without perforation or abscess without bleeding; D50.9 Iron deficiency anemia, unspecified; F17.200 Nicotine dependence, unspecified, uncomplicated; K31.89 Other diseases of stomach and duodenum; I50.9 Heart failure, unspecified; E78.5 Hyperlipidemia, unspecified; Z79.82 Long term (current) use of aspirin; Z79.01 Long term (current) use of anticoagulants; Z79.899 Other long term (current) drug therapy; Z95.1 Presence of aortocoronary bypass graft; Z88.0 Allergy status to penicillin; Z95.820 Peripheral vascular angioplasty status with implants and grafts; Z20.822 Contact with and (suspected) exposure to COVID-19

== ENCOUNTER → 2020-12-03 | Outpatient (CLI) | payer MEDICARE, BC, OTHER ==
[2020-12-03 11:58] LABS: HEMATOCRIT 27.9 % (42.0-52.0); HEMOGLOBIN 8.5 g/dl (13.5-17.5); MEAN CORPUSCULAR HGB CONC 30.5 g/dl (32.0-36.5); MEAN CORPUSCULAR VOLUME 88.6 fl (80.0-96.0); PLATELET COUNT, AUTOMATED 270 10^3/uL (150-450); RED BLOOD COUNT 3.15 10^6/uL (4.30-6.10); WHITE BLOOD COUNT 9.8 10^3/uL (4.0-10.0)
[2020-12-03 12:22] LABS: CALCIUM LEVEL 9.9 MG/DL (8.8-10.2); CREATININE FOR GFR 1.33 MG/DL (0.70-1.30); GLOMERULAR FILTRATION RATE 56.3 (>42); MAGNESIUM LEVEL 2.2 MG/DL (1.8-2.4); POTASSIUM SERUM 4.5 MEQ/L (3.5-5.1)
== END ==
LOC: M WUC 09:16
PROVIDERS: ATTEND Physician Assistant
DX: I50.9 Heart failure, unspecified (principal)

== ENCOUNTER → 2020-12-16 | Outpatient (CLI) | payer MEDICARE, BC, OTHER ==
[~2020-12-16] MED LIST changes: +AMLO1TAB24; +ASPI-161 PO; +AZEL1SPR3 NARES; +FAMO40TA3 PO; +MAGN64TASA PO; +POTA20TA6; +SPIR-10 PO; +TORS10TA3 PO; +XARE20TA PO
[2020-12-16 12:47] LABS: HEMATOCRIT 31.8 % (42.0-52.0); HEMOGLOBIN 9.8 g/dl (13.5-17.5); MEAN CORPUSCULAR HEMOGLOBIN 27.1 pg (27.0-33.0); MEAN CORPUSCULAR HGB CONC 30.8 g/dl (32.0-36.5); MEAN CORPUSCULAR VOLUME 87.8 fl (80.0-96.0); PLATELET COUNT, AUTOMATED 315 10^3/uL (150-450); RED BLOOD COUNT 3.62 10^6/uL (4.30-6.10); WHITE BLOOD COUNT 7.8 10^3/uL (4.0-10.0)
[2020-12-16 13:13] LABS: BLOOD UREA NITROGEN 26 MG/DL (7-18); CALCIUM LEVEL 9.5 MG/DL (8.8-10.2); CARBON DIOXIDE LEVEL 28 MEQ/L (21-32); CHLORIDE LEVEL 102 MEQ/L (98-107); CREATININE FOR GFR 1.17 MG/DL (0.70-1.30); GLOMERULAR FILTRATION RATE > 60.0 (>42); GLUCOSE, FASTING 93 MG/DL (70-100); MAGNESIUM LEVEL 1.9 MG/DL (1.8-2.4); NT-PRO BNP 2381 PG/ML (<125); POTASSIUM SERUM 4.2 MEQ/L (3.5-5.1); SODIUM LEVEL 138 MEQ/L (136-145)
== END ==
LOC: M WUC 09:17
PROVIDERS: ATTEND Physician Assistant
DX: I50.9 Heart failure, unspecified (principal)

== ENCOUNTER → 2020-12-16 | Outpatient (CLI) | payer MEDICARE, BC, OTHER ==
[2020-12-16 12:47] LABS: BASO # 0.1 10^3/uL (0.0-0.2); EOS # 0.7 10^3/uL (0.0-0.5); EOS % 8.5 % (0.0-3.0); HEMATOCRIT 31.6 % (42.0-52.0); HEMOGLOBIN 9.5 g/dl (13.5-17.5); LYMPH # 1.4 10^3/uL (1.5-5.0); MEAN CORPUSCULAR HEMOGLOBIN 26.5 pg (27.0-33.0); MEAN CORPUSCULAR HGB CONC 30.1 g/dl (32.0-36.5); MONO # 0.9 10^3/uL (0.0-0.8); MONO % 11.1 % (0.0-8.0); NEUTROPHILS # 4.7 10^3/uL (1.5-8.5); NEUTROPHILS % 61.1 % (36.0-66.0); PLATELET COUNT, AUTOMATED 323 10^3/uL (150-450); RED BLOOD COUNT 3.59 10^6/uL (4.30-6.10); WHITE BLOOD COUNT 7.7 10^3/uL (4.0-10.0)
[2020-12-16 13:14] LABS: ALBUMIN 3.6 GM/DL (3.2-5.2); ALT/SGPT 19 U/L (12-78); BILIRUBIN,TOTAL 0.3 MG/DL (0.2-1.0); BLOOD UREA NITROGEN 26 MG/DL (7-18); CALCIUM LEVEL 9.7 MG/DL (8.8-10.2); CARBON DIOXIDE LEVEL 28 MEQ/L (21-32); CHLORIDE LEVEL 102 MEQ/L (98-107); CREATININE FOR GFR 1.22 MG/DL (0.70-1.30); FERRITIN 34 NG/ML (26-388); GLOMERULAR FILTRATION RATE > 60.0 (>42); GLUCOSE, FASTING 92 MG/DL (70-100); IRON (FE) 373 UG/DL (65-175); PERCENT SATURATION 75.8 % (19.7-50.0); POTASSIUM SERUM 4.2 MEQ/L (3.5-5.1); SODIUM LEVEL 138 MEQ/L (136-145); TOTAL IRON BINDING CAPACITY 492 UG/DL (250-450); TOTAL PROTEIN 7.6 GM/DL (6.4-8.2)
[2020-12-16 13:21] LABS: FOLATE 14.3 NG/ML; VITAMIN B12 LEVEL 716 PG/ML
== END ==
LOC: M WUC 09:14
PROVIDERS: ATTEND Physician Assistant
DX: D50.9 Iron deficiency anemia, unspecified (principal); I50.9 Heart failure, unspecified

== ENCOUNTER → 2021-01-01 | Outpatient (CLI) | payer MEDICARE, BC, OTHER ==
[2021-01-01 10:57] LABS: BASO # 0.1 10^3/uL (0.0-0.2); EOS # 0.7 10^3/uL (0.0-0.5); EOS % 7.3 % (0.0-3.0); HEMATOCRIT 35.3 % (42.0-52.0); HEMOGLOBIN 10.8 g/dl (13.5-17.5); LYMPH # 1.2 10^3/uL (1.5-5.0); LYMPH % 12.6 % (24.0-44.0); MEAN CORPUSCULAR HEMOGLOBIN 28.5 pg (27.0-33.0); MEAN CORPUSCULAR HGB CONC 30.6 g/dl (32.0-36.5); MEAN CORPUSCULAR VOLUME 93.1 fl (80.0-96.0); MONO # 0.8 10^3/uL (0.0-0.8); MONO % 8.9 % (2.0-8.0); NEUTROPHILS # 6.6 10^3/uL (1.5-8.5); NEUTROPHILS % 69.9 % (36.0-66.0); PLATELET COUNT, AUTOMATED 218 10^3/uL (150-450); RED BLOOD COUNT 3.79 10^6/uL (4.30-6.10); WHITE BLOOD COUNT 9.4 10^3/uL (4.0-10.0)
[2021-01-01 11:34] LABS: ALBUMIN 3.8 GM/DL (3.2-5.2); ALT/SGPT 16 U/L (12-78); BILIRUBIN,TOTAL 0.8 MG/DL (0.2-1.0); BLOOD UREA NITROGEN 27 MG/DL (7-18); CARBON DIOXIDE LEVEL 27 MEQ/L (21-32); CHLORIDE LEVEL 102 MEQ/L (98-107); CHOLESTEROL LEVEL 130 MG/DL (<200); CHOLESTEROL RISK RATIO 3.939 (<5); CREATININE FOR GFR 1.24 MG/DL (0.70-1.30); GLOMERULAR FILTRATION RATE > 60.0 (>42); GLUCOSE, FASTING 96 MG/DL (70-100); HDL CHOLESTEROL 33 MG/DL (>40); LDL CHOLESTEROL 71 MG/DL (<100); NON-HDL-C 97 MG/DL; POTASSIUM SERUM 4.1 MEQ/L (3.5-5.1); SODIUM LEVEL 135 MEQ/L (136-145); TOTAL PROTEIN 7.9 GM/DL (6.4-8.2); TRIGLYCERIDES LEVEL 132 MG/DL (<150)
== END ==
LOC: M WUC 08:49
PROVIDERS: ATTEND Physician Assistant
DX: I25.10 Atherosclerotic heart disease of native coronary artery without angina pectoris (principal); Z12.5 Encounter for screening for malignant neoplasm of prostate
CPT/HCPCS: 36415; 80053; 80061; 85025; G0103

== ENCOUNTER → 2021-01-27 | Outpatient (CLI) | payer MEDICARE, BC, OTHER ==
[2021-01-27 16:31] LABS: CALCIUM LEVEL 9.2 MG/DL (8.8-10.2); CREATININE FOR GFR 1.31 MG/DL (0.70-1.30); GLOMERULAR FILTRATION RATE 57.3 (>42); MAGNESIUM LEVEL 1.8 MG/DL (1.8-2.4); POTASSIUM SERUM 4.8 MEQ/L (3.5-5.1)
== END ==
LOC: M WUC 14:06
PROVIDERS: ATTEND Physician Assistant
DX: I50.9 Heart failure, unspecified (principal)

== ENCOUNTER → 2021-02-03 | Outpatient (CLI) | payer MEDICARE, BC, OTHER ==
[~2021-02-03] MED LIST changes: +E-Z-GAS II EFFERVESCENT PACKET (SODIUM BICARB./CITRIC ACID/SIMETHICONE) As Ordered ONE; +E-Z-HD 98% w/w 340GM SUSP BTL As Ordered ONE; +E-Z-PAQUE 96% w/w SUSP 176GM BTL As Ordered ONE
--- NOTE | 2021-02-03 19:09 | REP ---
INDICATION: POST BULBAR DUODENAL DEFORMITY,R/O FISTULA/DIVERTI. COMPARISON: None TECHNIQUE: This procedure was performed by Concha Gimenez [facility], under the direct supervision of Dr. Tompkins. Images were reviewed with Dr. Tompkins prior to dictation. Liquid barium and gas producing crystals were given in the erect position, as well as liquid barium in the prone oblique position in order to perform a double contrast upper GI examination. Additionally liquid barium was given at the end of the examination in order to perform a small-bowel follow-through. FINDINGS: The creosoting engineer film shows no organomegaly or pathological masses. The intestinal gas pattern is unremarkable. The oral and pharyngeal stages of deglutition were unremarkable. Esophageal transport is prompt and efficient and there is no evidence of esophagitis, stricture, or mucosal ring. There is evidence of a hiatal hernia. There was no gastroesophageal reflux noted . The stomach folds appear thickened, likely indicative of gastritis. There is deformity of the duodenal bulb with thickened irregular folds. There is an outpouching from the duodenal bulb with a thin neck, it is uncertain if this is a chronic ulcer or a diverticulum. The abnormal appearance to the bulb is likely be due to chronic peptic ulcer disease. There is a diverticulum of the distal transverse duodenum. The barium column was followed through the small bowel to the level of the terminal ileum. Small bowel transit time is approximately 150 minutes. During fluoroscopy gentle palpation shows all loops are freely movable and pliable. There is no fixed angulated loops. The small bowel mucosal pattern is normal in course and caliber. The appendix is visualized. There is no transition to suggest a partial small bowel obstruction. Spot filming of the terminal ileum shows it to be unremarkable. IMPRESSION: 1. Small hiatal hernia. 2. Thickened gastric folds, likely due to gastritis. 3. Abnormal appearing duodenal bulb likely due to chronic peptic ulcer disease. 4. Abnormal outpouching from the duodenal bulb as described above, chronic ulcer versus diverticulum. 5. Diverticulum of the distal transverse duodenum. 1.5 minutes of fluoroscopy time was utilized for this procedure. Some fluoroscopic images are performed with last image hold technology. These images require no additional radiation. <Electronically signed by Concha Gimenez > 02/03/21 1637 <Electronically signed by Espinoza Tompkins > 02/03/21 1906
== END ==
LOC: M RAD 09:11
PROVIDERS: ATTEND Internal Medicine Gastroenterology
DX: K31.89 Other diseases of stomach and duodenum (principal); K44.0 Diaphragmatic hernia with obstruction, without gangrene

== ENCOUNTER → 2021-02-12 | Outpatient (CLI) | payer MEDICARE, BC, OTHER ==
[~2021-02-12] MED LIST changes: -E-Z-GAS II EFFERVESCENT PACKET (SODIUM BICARB./CITRIC ACID/SIMETHICONE) As Ordered ONE; -E-Z-HD 98% w/w 340GM SUSP BTL As Ordered ONE; -E-Z-PAQUE 96% w/w SUSP 176GM BTL As Ordered ONE; +IRON1TAB2 PO
== END ==
LOC: M LABSMTC 12:21
PROVIDERS: ATTEND Anesthesiology
DX: Z01.812 Encounter for preprocedural laboratory examination (principal); Z20.822 Contact with and (suspected) exposure to COVID-19

== ENCOUNTER 2021-02-17 06:56 | Day surgery (SDC) | payer MEDICARE, BC, OTHER ==
[~2021-02-17] VITALS: Ht 188 cm; Wt 82.5 kg
[2021-02-17] MEDS ORDERED: NS 1,000 ML IV ONE (07:00)
[2021-02-17] MEDS ORDERED: propofoL 200 MG/20 ML VIAL As Ordered ONE ×3 (07:12→08:11)
[2021-02-17] MEDS ORDERED: LIDOCAINE 2% 100MG/5ML SDV (FOR ANES.) As Ordered ONE (07:12)
[2021-02-17] MEDS ORDERED: PHENYLephrine 500MCG 5ML (100MCG/ML) SYRINGE As Ordered ONE ×3 (07:37→08:11)
[2021-02-17] MEDS ORDERED: GLUCAGON INJ 1MG VIAL As Ordered ONE (07:37)
[2021-02-17] MEDS ORDERED: ePHEDrine SULFATE 25 MG/5 ML(5MG/ML) SYRINGE As Ordered ONE ×2 (08:02→08:26)
--- NOTE | 2021-02-17 08:53 | ROOR ---
Patient Name: Rogers Hernandez Procedure Date: 02/17/2021 7:25 AM Date of : 1950 Age: 70 Room: [facility] Gender: Male Note Status: Finalized Procedure: Colonoscopy Indications: Therapeutic procedure for colon polyps, Therapeutic procedure for known colon adenoma Providers: aJspal SAUCEDO MD Referring MD: Azam Israel Requesting Provider: Medicines: Monitored Anesthesia Care Complications: No immediate complications. Procedure: Pre-Anesthesia Assessment: - The heart rate, respiratory rate, oxygen saturations, blood pressure, adequacy of pulmonary ventilation, and response to care were monitored throughout the procedure. The Colonoscope was introduced through the anus and advanced to the terminal ileum, with identification of the appendiceal orifice and IC valve. The colonoscopy was performed without difficulty. The patient tolerated the procedure well. The quality of the bowel preparation was good. Findings: The perianal and digital rectal examinations were normal. A tattoo was seen in the mid descending colon. A post-polypectomy scar was found at the tattoo site. Residual polyp tissue is seen. The polyp was removed with a piecemeal technique using a hot snare. Polyp resection was incomplete, and the resected tissue was partially retrieved. Coagulation for destruction of remaining portion of lesion using argon beam at 0.8 liters/minute and 20 [place] and argon plasma at 0.8 liters/minute and 20 almonte was successful. To prevent bleeding after the polypectomy, five hemostatic clips were successfully placed. A tattoo and a 20 mm polyp was found in the mid sigmoid colon. The polyp was pedunculated. An endoloop was maneuvered over the polyp stalk and closed at the mucosal attachment prior to removal in order to prevent bleeding. The polyp was removed with a hot snare. Resection and retrieval were complete. A 10 mm polyp was found in the splenic flexure. The polyp was sessile. The polyp was removed with a piecemeal technique using a hot snare. Polyp resection was incomplete, and the resected tissue was partially retrieved. Coagulation for destruction of remaining portion of lesion using argon plasma at 0.8 liters/minute and 20 almonte was successful. To prevent bleeding after the polypectomy, four hemostatic clips were successfully placed. There was no bleeding at the end of the procedure. Impression: - A tattoo/scar and residual polypoid tissue was seen in the mid descending colon. This was piecemeal removed with hot snare. Removal was partial. Treated with argon plasma coagulation (APC). Clips were placed. - A tattoo and one 20 mm broadly stalked polyp is seen in the mid sigmoid colon, removed in its entirety with a hot snare. Resected and retrieved. - One 10 mm polyp at the splenic flexure, removed piecemeal using a hot snare. Polyp resection was partial, and the resected tissue was partially retrieved. Treated with argon plasma coagulation (APC). Clips were placed. Recommendation: - Repeat colonoscopy in 6 months for surveillance after piecemeal polypectomy. - Return to my office in 6 months. - Resume Xarelto (rivaroxaban) at prior dose on 02/22/21. Procedure Code(s): --- Professional --- 29254, Colonoscopy, flexible; with removal of tumor(s), polyp(s), or other lesion(s) by snare technique Diagnosis Code(s): --- Professional --- D12.6, Benign neoplasm of colon, unspecified K63.5, Polyp of colon CPT copyright 2019 [employer]. All rights reserved. The codes documented in this report are preliminary and upon medical billing coder review may be revised to meet current compliance requirements. Jaspal Saucedo MD Jaspal SAUCEDO MD 02/17/2021 8:53:49 AM Electronically signed by Jaspal SAUCEDO MD Number of Addenda: 0 Note Initiated On: 02/17/2021 7:25 AM Estimated Blood Loss: Estimated blood loss: none.
[2021-02-17 09:18] VITALS: BP 90/51
== END 2021-02-17 09:30 | disposition home or self-care (01) ==
LOC: M OPP 06:56
PROVIDERS: ATTEND Internal Medicine Gastroenterology
DX: Z86.010 Personal history of colon polyps (principal); K63.5 Polyp of colon; I50.32 Chronic diastolic (congestive) heart failure; I25.10 Atherosclerotic heart disease of native coronary artery without angina pectoris; I25.2 Old myocardial infarction; Z79.82 Long term (current) use of aspirin; Z79.899 Other long term (current) drug therapy; Z88.0 Allergy status to penicillin; F17.210 Nicotine dependence, cigarettes, uncomplicated
CPT/HCPCS: 45385; 88305; J1610; J2370

== ENCOUNTER → 2021-04-23 | Outpatient (CLI) | payer MEDICARE, BC, OTHER ==
[2021-04-23 18:13] LABS: HEMATOCRIT 43.5 % (42.0-52.0); HEMOGLOBIN 14.2 g/dl (13.5-17.5); MEAN CORPUSCULAR HGB CONC 32.6 g/dl (32.0-36.5); PLATELET COUNT, AUTOMATED 190 10^3/uL (150-450); RED BLOOD COUNT 4.58 10^6/uL (4.30-6.10); WHITE BLOOD COUNT 7.8 10^3/uL (4.0-10.0)
[2021-04-23 18:46] LABS: CREATININE FOR GFR 1.6 MG/DL (0.70-1.30); GLOMERULAR FILTRATION RATE 45.3 (>42); MAGNESIUM LEVEL 1.5 MG/DL (1.8-2.4); POTASSIUM SERUM 4.8 MEQ/L (3.5-5.1)
== END ==
LOC: M WUC 13:26
PROVIDERS: ATTEND Physician Assistant
DX: I50.32 Chronic diastolic (congestive) heart failure (principal); I48.3 Typical atrial flutter

== ENCOUNTER → 2021-05-20 | Outpatient (CLI) | payer MEDICARE, BC, OTHER ==
[2021-05-20 13:57] LABS: CALCIUM LEVEL 9.3 MG/DL (8.8-10.2); CREATININE FOR GFR 1.43 MG/DL (0.70-1.30); GLOMERULAR FILTRATION RATE 51.6 (>42); POTASSIUM SERUM 4.7 MEQ/L (3.5-5.1)
== END ==
LOC: M WUC 10:11
PROVIDERS: ATTEND Physician Assistant
DX: I50.32 Chronic diastolic (congestive) heart failure (principal)

== ENCOUNTER 2021-06-23 03:56 | Emergency (ER) | payer MEDICARE, BC, OTHER ==
[~2021-06-23] VITALS: Ht 188 cm; Wt 81.6 kg
--- NOTE | 2021-06-23 05:08 | REPVR ---
PROCEDURE INFORMATION: Exam: XR Chest Exam date and time: 06/23/2021 4:36 AM Age: 71 years old Clinical indication: Shortness of breath; Additional info: Chest pain TECHNIQUE: Imaging protocol: XR of the chest. Views: 1 view. COMPARISON: CR Chest, 1 view 12/03/2020 3:29 PM FINDINGS: Lungs: Coarse stable bilateral perihilar and bibasilar reticulonodular and ground-glass opacities. Pleural spaces: Unremarkable. No pleural effusion. No pneumothorax. Heart/Mediastinum: Mild cardiomegaly. Vasculature: Atherosclerotic disease of the thoracic aorta. Bones/joints: Status post median sternotomy and CABG. Osteopenia. Degenerative changes in the bilateral shoulders. IMPRESSION: No significant interval change. Electronically signed by: Justino Mcallister On 06/23/2021 05:07:40 AM
[2021-06-23 05:19] LABS: BASO # 0.1 10^3/uL (0.0-0.2); EOS # 0.4 10^3/uL (0.0-0.5); EOS % 5.7 % (0.0-3.0); HEMATOCRIT 39.4 % (42.0-52.0); HEMOGLOBIN 13.5 g/dl (13.5-17.5); LYMPH % 14.5 % (24.0-44.0); MEAN CORPUSCULAR HEMOGLOBIN 31.7 pg (27.0-33.0); MEAN CORPUSCULAR HGB CONC 34.3 g/dl (32.0-36.5); MEAN CORPUSCULAR VOLUME 92.5 fl (80.0-96.0); MONO # 0.7 10^3/uL (0.0-0.8); MONO % 9.7 % (2.0-8.0); NEUTROPHILS # 4.7 10^3/uL (1.5-8.5); NEUTROPHILS % 68.7 % (36.0-66.0); PLATELET COUNT, AUTOMATED 172 10^3/uL (150-450); RED BLOOD COUNT 4.26 10^6/uL (4.30-6.10); WHITE BLOOD COUNT 6.9 10^3/uL (4.0-10.0)
[2021-06-23 05:54] LABS: CALCIUM LEVEL 8.9 MG/DL (8.8-10.2); CK-MB VALUE MASS 1.4 NG/ML (<3.6); CREATININE FOR GFR 1.53 MG/DL (0.70-1.30); GLOMERULAR FILTRATION RATE 47.7 (>42); MB/CK RELATIVE INDEX 2.12 (< OR =4); POTASSIUM SERUM 4.7 MEQ/L (3.5-5.1); TROPONIN I 0.05 NG/ML (< 0.10)
[2021-06-23 09:46] LABS: CK-MB VALUE MASS 1.2 NG/ML (<3.6); MB/CK RELATIVE INDEX 2.18 (< OR =4); TROPONIN I 0.1 NG/ML (< 0.10)
[2021-06-23 12:08] VITALS: BP 160/78
--- NOTE | 2021-06-23 21:36 | ECGEPIP ---
[facility] - ED Test Date: 2021-06-23 Pat Name: MIRNA TRINH Department: Room: - Gender: Male Machine Welt Butter: JGT : 1950 Requested By: LIBERTAD Bhatt Order Number: [id number] Reading MD: Dom Sheth Measurements Intervals [place] Rate: 65 P: ME: QRS: 29 QRSD: 104 T: 23 QT: 414 QTc: 430 Interpretive Statements Atrial flutter with variable AV block INCOMPLETE RIGHT BUNDLE BRANCH BLOCK SIMILAR TO 12/03/20 Electronically Signed on 06-23-2021 21:35:39 EDT by Dom Sheth
--- NOTE | 2021-06-23 21:37 | ECGEPIP ---
[facility] - ED Test Date: 2021-06-23 Pat Name: MIRNA TRINH Department: Room: - Gender: Male Repatcher: KAMILAH : 1950 Requested By: LIBERTAD Bhatt Order Number: [id number] Reading MD: Dom Sheth Measurements Intervals [place] Rate: 56 P: 74 NM: QRS: 60 QRSD: 96 T: 37 QT: 410 QTc: 395 Interpretive Statements Atrial flutter with 4:1 AV conduction Incomplete right bundle branch block SIMILAR TO PRIOR ON SAME DATE Electronically Signed on 06-23-2021 21:37:05 EDT by Dom Sheth
== END 2021-06-23 13:10 | disposition home or self-care (01) ==
LOC: M ED 03:56
DX: R07.89 Other chest pain (principal); K21.9 Gastro-esophageal reflux disease without esophagitis; I45.19 Other right bundle-branch block; I48.4 Atypical atrial flutter; I25.10 Atherosclerotic heart disease of native coronary artery without angina pectoris; I10 Essential (primary) hypertension; E78.5 Hyperlipidemia, unspecified; J44.9 Chronic obstructive pulmonary disease, unspecified; Z95.1 Presence of aortocoronary bypass graft; F17.200 Nicotine dependence, unspecified, uncomplicated; Z79.82 Long term (current) use of aspirin; Z79.899 Other long term (current) drug therapy; Z88.0 Allergy status to penicillin

== ENCOUNTER → 2021-07-29 | Outpatient (CLI) | payer MEDICARE, BC, OTHER ==
[2021-07-29 16:29] LABS: CALCIUM LEVEL 9.2 MG/DL (8.8-10.2); CREATININE FOR GFR 1.46 MG/DL (0.70-1.30); GLOMERULAR FILTRATION RATE 50.4 (>42); MAGNESIUM LEVEL 1.4 MG/DL (1.8-2.4); POTASSIUM SERUM 4.6 MEQ/L (3.5-5.1)
== END ==
LOC: M WUC 14:18
PROVIDERS: ATTEND Physician Assistant
DX: I50.32 Chronic diastolic (congestive) heart failure (principal); I48.3 Typical atrial flutter

== ENCOUNTER → 2021-08-15 | Outpatient (CLI) | payer MEDICARE, BC, OTHER ==
--- NOTE | 2021-08-15 11:07 | REP ---
INDICATION: Assess stenosis TECHNIQUE: Carotid ultrasonography was performed bilaterally FINDINGS: Right: CCA systolic: 61.8 centimeters/second CCA diastolic: 7.2 centimeters/second ICA systolic: 75.6 centimeters/second ICA diastolic: 15.7 centimeters/second ICA CCA ratio: 1.22 Left: CCA systolic: 62.7 centimeters/second CCA diastolic: 12.1 centimeters/second ICA systolic: 92.7 centimeters/second ICA diastolic: 22.7 centimeters/second ICA CCA ratio: 1.48 Vertebral artery: Right: Retrograde flow left: Antegrade flow Patchy echogenic material is seen along the carotid arterial marc some of which casts and acoustic shadow IMPRESSION: 1. According to the SRU criteria there is less than 50% stenosis of the internal carotid artery bilaterally. This is secondary to both calcified and noncalcified atheromatous plaque formation. 2. Retrograde flow is seen in the right vertebral artery which is consistent with a subclavian steal syndrome. <Electronically signed by Kole Anthony > 08/15/21 1109
== END ==
LOC: M RAD 09:44
PROVIDERS: ATTEND Physician Assistant
DX: I65.23 Occlusion and stenosis of bilateral carotid arteries (principal)

== ENCOUNTER → 2021-11-04 | Outpatient (CLI) | payer MEDICARE, BC, OTHER ==
[2021-11-04 10:28] LABS: HEMOGLOBIN 12.8 g/dl (13.5-17.5); MEAN CORPUSCULAR HEMOGLOBIN 31.1 pg (27.0-33.0); MEAN CORPUSCULAR VOLUME 97.1 fl (80.0-96.0); PLATELET COUNT, AUTOMATED 207 10^3/uL (150-450); RED BLOOD COUNT 4.12 10^6/uL (4.30-6.10); WHITE BLOOD COUNT 10.3 10^3/uL (4.0-10.0)
[2021-11-04 11:02] LABS: ALBUMIN 3.8 GM/DL (3.2-5.2); BILIRUBIN,TOTAL 0.4 MG/DL (0.2-1.0); CALCIUM LEVEL 9.5 MG/DL (8.8-10.2); CHOLESTEROL RISK RATIO 4.87 (<5); CREATININE FOR GFR 1.73 MG/DL (0.70-1.30); GLOMERULAR FILTRATION RATE 41.4 (>42); MAGNESIUM LEVEL 1.7 MG/DL (1.8-2.4); POTASSIUM SERUM 5.4 MEQ/L (3.5-5.1); TOTAL PROTEIN 8.1 GM/DL (6.4-8.2)
== END ==
LOC: M WUC 08:13
PROVIDERS: ATTEND Physician Assistant
DX: I25.10 Atherosclerotic heart disease of native coronary artery without angina pectoris (principal); I48.3 Typical atrial flutter; E78.2 Mixed hyperlipidemia; I50.32 Chronic diastolic (congestive) heart failure

== ENCOUNTER → 2021-11-18 | Outpatient (REF) | payer MEDICARE, BC, OTHER ==
[~2021-11-18] MED LIST changes: +POTA-151; -POTA20TA6
== END ==
LOC: M LAB REF 13:39
PROVIDERS: ATTEND Family Medicine
DX: R19.7 Diarrhea, unspecified (principal)

== ENCOUNTER → 2021-12-01 | Outpatient (CLI) | payer MEDICARE, BC, OTHER ==
[2021-12-01 17:07] LABS: CALCIUM LEVEL 9.3 MG/DL (8.8-10.2); CREATININE FOR GFR 1.53 MG/DL (0.70-1.30); GLOMERULAR FILTRATION RATE 47.7 (>42); MAGNESIUM LEVEL 1.7 MG/DL (1.8-2.4); POTASSIUM SERUM 5.1 MEQ/L (3.5-5.1)
== END ==
LOC: M WUC 13:56
PROVIDERS: ATTEND Physician Assistant
DX: I50.32 Chronic diastolic (congestive) heart failure (principal)

== ENCOUNTER → 2022-01-23 | Outpatient (CLI) | payer MEDICARE, BC, OTHER ==
[2022-01-23 12:36] LABS: CALCIUM LEVEL 9.1 MG/DL (8.8-10.2); CREATININE FOR GFR 1.55 MG/DL (0.70-1.30); MAGNESIUM LEVEL 1.7 MG/DL (1.8-2.4)
== END ==
LOC: M WUC 10:20
PROVIDERS: ATTEND Physician Assistant
DX: I50.32 Chronic diastolic (congestive) heart failure (principal); I48.3 Typical atrial flutter

== ENCOUNTER → 2022-03-21 | Outpatient (CLI) | payer MEDICARE, BC, OTHER | LOC: M LABSMTC 11:25 | PROVIDERS: ATTEND Anesthesiology | DX: Z01.812 Encounter for preprocedural laboratory examination (principal); Z20.822 Contact with and (suspected) exposure to COVID-19 ==

== ENCOUNTER 2022-03-26 07:01 | Day surgery (SDC) | payer MEDICARE, BC, OTHER ==
[~2022-03-26] VITALS: Ht 188 cm; Wt 81.8 kg
[~2022-03-26 07:01] MED LIST changes: +NS 1,000 ML IV ONE
[2022-03-26] MEDS ORDERED: LIDOCAINE 2% 100MG/5ML SDV (FOR ANES.) As Ordered ONE (07:02)
[2022-03-26] MEDS ORDERED: propofoL 200 MG/20 ML VIAL As Ordered ONE ×2 (07:02→08:51)
[2022-03-26] MEDS ORDERED: PHENYLephrine 500MCG 5ML (100MCG/ML) SYRINGE As Ordered ONE ×2 (08:37→08:47)
[2022-03-26] MEDS ORDERED: ePHEDrine SULFATE 25 MG/5 ML(5MG/ML) SYRINGE As Ordered ONE (08:53)
[2022-03-26 09:25] VITALS: BP 111/59
== END 2022-03-26 09:30 | disposition home or self-care (01) ==
LOC: M OPP 07:01
PROVIDERS: ATTEND Internal Medicine Gastroenterology
DX: K63.5 Polyp of colon (principal); Z86.010 Personal history of colon polyps; Z09 Encounter for follow-up examination after completed treatment for conditions other than malignant neoplasm; Z79.02 Long term (current) use of antithrombotics/antiplatelets; Z79.82 Long term (current) use of aspirin; Z79.811 Long term (current) use of aromatase inhibitors; Z79.899 Other long term (current) drug therapy; Z88.0 Allergy status to penicillin
CPT/HCPCS: 45385; 88305; J2370

== ENCOUNTER → 2022-04-23 | Outpatient (CLI) | payer MEDICARE, BC, OTHER ==
[~2022-04-23] MED LIST changes: -NS 1,000 ML IV ONE
[2022-04-23 19:58] LABS: BASO # 0.1 10^3/uL (0.0-0.2); EOS # 0.6 10^3/uL (0.0-0.5); EOS % 6.8 % (0.0-3.0); HEMATOCRIT 36.7 % (42.0-52.0); LYMPH # 1.5 10^3/uL (1.5-5.0); LYMPH % 17.1 % (24.0-44.0); MEAN CORPUSCULAR HEMOGLOBIN 32.3 pg (27.0-33.0); MEAN CORPUSCULAR HGB CONC 32.7 g/dl (32.0-36.5); MEAN CORPUSCULAR VOLUME 98.7 fl (80.0-96.0); MONO # 0.8 10^3/uL (0.0-0.8); MONO % 9.3 % (2.0-8.0); NEUTROPHILS # 5.8 10^3/uL (1.5-8.5); NEUTROPHILS % 65.6 % (36.0-66.0); PLATELET COUNT, AUTOMATED 204 10^3/uL (150-450); RED BLOOD COUNT 3.72 10^6/uL (4.30-6.10); WHITE BLOOD COUNT 8.9 10^3/uL (4.0-10.0)
[2022-04-23 21:02] LABS: ALBUMIN 3.5 GM/DL (3.2-5.2); CALCIUM LEVEL 8.8 MG/DL (8.8-10.2); CREATININE FOR GFR 1.84 MG/DL (0.70-1.30); GLOMERULAR FILTRATION RATE 38.5 (>42); PERCENT SATURATION 20.4 % (19.7-50.0); POTASSIUM SERUM 5.3 MEQ/L (3.5-5.1); TOTAL 25(OH) VITAMIN D 41.2 NG/ML (30.0-100.0); TOTAL PROTEIN 7.6 GM/DL (6.4-8.2)
[2022-04-23 21:50] LABS: BILIRUBIN,TOTAL 0.4 MG/DL (0.2-1.0); FOLATE 12.9 NG/ML
== END ==
LOC: M WUC 15:13
PROVIDERS: ATTEND Family Medicine
DX: D50.9 Iron deficiency anemia, unspecified (principal); I25.10 Atherosclerotic heart disease of native coronary artery without angina pectoris; I50.32 Chronic diastolic (congestive) heart failure; Z95.5 Presence of coronary angioplasty implant and graft; Z79.899 Other long term (current) drug therapy
CPT/HCPCS: 80048; 80053; 82306; 82607; 82728; 82746; 83550; 83735; 85025; G0103

== ENCOUNTER → 2022-04-23 | Outpatient (CLI) | payer MEDICARE, BC, OTHER ==
[2022-04-23 20:23] LABS: CALCIUM LEVEL 9.5 MG/DL (8.8-10.2); CREATININE FOR GFR 1.83 MG/DL (0.70-1.30); GLOMERULAR FILTRATION RATE 38.7 (>42); MAGNESIUM LEVEL 1.8 MG/DL (1.8-2.4); POTASSIUM SERUM 5.3 MEQ/L (3.5-5.1)
== END ==
LOC: M WUC 15:09
PROVIDERS: ATTEND Physician Assistant
DX: I50.32 Chronic diastolic (congestive) heart failure (principal)

== ENCOUNTER → 2022-05-13 | Outpatient (CLI) | payer MEDICARE, BC, OTHER ==
[2022-05-13 16:23] LABS: CALCIUM LEVEL 9.4 MG/DL (8.8-10.2); CREATININE FOR GFR 1.52 MG/DL (0.70-1.30); POTASSIUM SERUM 5.3 MEQ/L (3.5-5.1)
== END ==
LOC: M WUC 11:24
PROVIDERS: ATTEND Physician Assistant
DX: I50.32 Chronic diastolic (congestive) heart failure (principal)

== ENCOUNTER → 2022-08-03 | Outpatient (CLI) | payer MEDICARE, BC, OTHER ==
[2022-08-03 17:48] LABS: CALCIUM LEVEL 9.2 MG/DL (8.8-10.2); CREATININE FOR GFR 1.37 MG/DL (0.70-1.30); GLOMERULAR FILTRATION RATE 54.1 (>42); POTASSIUM SERUM 4.1 MEQ/L (3.5-5.1)
== END ==
LOC: M WUC 10:41
PROVIDERS: ATTEND Physician Assistant
DX: I50.32 Chronic diastolic (congestive) heart failure (principal)

== ENCOUNTER → 2022-10-06 | Outpatient (CLI) | payer MEDICARE, BC, OTHER | LOC: M RAD 08:38 | PROVIDERS: ATTEND Surgery Vascular Surgery | DX: I70.213 Atherosclerosis of native arteries of extremities with intermittent claudication, bilateral legs (principal); I87.2 Venous insufficiency (chronic) (peripheral); I25.10 Atherosclerotic heart disease of native coronary artery without angina pectoris; Z95.820 Peripheral vascular angioplasty status with implants and grafts ==

== ENCOUNTER → 2022-11-04 | Outpatient (CLI) | payer MEDICARE, BC, OTHER ==
[2022-11-04 12:35] LABS: HEMATOCRIT 34.3 % (42.0-52.0); HEMOGLOBIN 10.5 g/dl (13.5-17.5); MEAN CORPUSCULAR HEMOGLOBIN 31.7 pg (27.0-33.0); MEAN CORPUSCULAR HGB CONC 30.6 g/dl (32.0-36.5); MEAN CORPUSCULAR VOLUME 103.6 fl (80.0-96.0); PLATELET COUNT, AUTOMATED 200 10^3/uL (150-450); RED BLOOD COUNT 3.31 10^6/uL (4.30-6.10); WHITE BLOOD COUNT 7.9 10^3/uL (4.0-10.0)
[2022-11-04 12:53] LABS: MAGNESIUM LEVEL 1.8 MG/DL (1.8-2.4)
[2022-11-04 12:56] LABS: ALBUMIN 3.3 G/DL (3.2-5.2); BILIRUBIN,TOTAL 0.6 MG/DL (0.3-1.2); CALCIUM LEVEL 8.9 MG/DL (8.3-10.6); CHOLESTEROL RISK RATIO 3.52 (<5); CREATININE FOR GFR 1.38 MG/DL (0.70-1.30); GLOMERULAR FILTRATION RATE 53.6 (>42); LDL CHOLESTEROL 35.4 MG/DL (<100); POTASSIUM SERUM 4.4 MMOL/L (3.5-5.1); TOTAL PROTEIN 7.4 G/DL (5.7-8.2)
== END ==
LOC: M WUC 08:47
PROVIDERS: ATTEND Physician Assistant
DX: I48.3 Typical atrial flutter (principal); I25.10 Atherosclerotic heart disease of native coronary artery without angina pectoris; E78.2 Mixed hyperlipidemia

== ENCOUNTER → 2022-11-17 | Outpatient (CLI) | payer MEDICARE, BC, OTHER ==
[~2022-11-17] MED LIST changes: +ISOVUE-370 76% 100ML VIAL As Ordered ONE
== END ==
LOC: M RAD 13:21
PROVIDERS: ATTEND Surgery Vascular Surgery
DX: I70.213 Atherosclerosis of native arteries of extremities with intermittent claudication, bilateral legs (principal); F17.210 Nicotine dependence, cigarettes, uncomplicated
CPT/HCPCS: 75635; Q9967

== ENCOUNTER → 2022-11-23 | Outpatient (CLI) | payer MEDICARE, BC, OTHER ==
[~2022-11-23] MED LIST changes: -ISOVUE-370 76% 100ML VIAL As Ordered ONE
[2022-11-23 16:45] LABS: BASO # 0.1 10^3/uL (0.0-0.2); BASO % 1.8 % (0.0-1.0); EOS # 0.3 10^3/uL (0.0-0.5); EOS % 4.7 % (0.0-3.0); HEMATOCRIT 39.4 % (42.0-52.0); HEMOGLOBIN 11.1 g/dl (13.5-17.5); LYMPH % 15.2 % (24.0-44.0); MEAN CORPUSCULAR HEMOGLOBIN 31.5 pg (27.0-33.0); MEAN CORPUSCULAR HGB CONC 28.2 g/dl (32.0-36.5); MEAN CORPUSCULAR VOLUME 111.9 fl (80.0-96.0); MONO # 0.7 10^3/uL (0.0-0.8); MONO % 10.8 % (2.0-8.0); NEUTROPHILS # 4.5 10^3/uL (1.5-8.5); NEUTROPHILS % 67.2 % (36.0-66.0); PLATELET COUNT, AUTOMATED 237 10^3/uL (150-450); RED BLOOD COUNT 3.52 10^6/uL (4.30-6.10); WHITE BLOOD COUNT 6.8 10^3/uL (4.0-10.0)
[2022-11-23 17:08] LABS: ALBUMIN 3.4 G/DL (3.2-5.2); BILIRUBIN,TOTAL 0.7 MG/DL (0.3-1.2); CALCIUM LEVEL 9.3 MG/DL (8.3-10.6); CREATININE FOR GFR 1.54 MG/DL (0.70-1.30); GLOMERULAR FILTRATION RATE 47.2 (>42); PERCENT SATURATION 22.3 % (19.7-50.0); TOTAL PROTEIN 7.4 G/DL (5.7-8.2)
[2022-11-23 17:09] LABS: FOLATE 19.11 NG/ML (>5.4)
[2022-11-23 17:10] LABS: FERRITIN 21.3 NG/ML (10.5-307.3)
== END ==
LOC: M WUC 13:56
PROVIDERS: ATTEND Physician Assistant
DX: D50.9 Iron deficiency anemia, unspecified (principal); I25.10 Atherosclerotic heart disease of native coronary artery without angina pectoris

== ENCOUNTER 2022-12-02 15:36 | Inpatient (IN) | payer MEDICARE, BC, OTHER ==
[~2022-12-02] VITALS: Ht 188 cm; Wt 91.6 kg
[~2022-12-02 15:36] MED LIST changes: +ACET-897 PO; +ALBU8.5H INH; +AZEL1SPR3; +CIPR-249 PO; +CIPR500T39 PO; +CYAN100050 PO; +FERR1TAB8 PO; +FLOM0.4C39 PO; +NITR4TASL SL; +OMEP40CA5 PO; +RAMI1CAP24 PO; +ROPI2TAB3 PO; +SPIR1CAP INH
[2022-12-02] MEDS ORDERED: NS 1,000 ML IV ONE ×3 (16:35→19:30)
[2022-12-02 16:45] LABS: BASO # 0.1 10^3/uL (0.0-0.2); BASO % 0.7 % (0.0-1.0); EOS # 0.4 10^3/uL (0.0-0.5); EOS % 4.8 % (0.0-3.0); HEMATOCRIT 32.2 % (42.0-52.0); HEMOGLOBIN 9.6 g/dl (13.5-17.5); LYMPH # 0.8 10^3/uL (1.5-5.0); MEAN CORPUSCULAR HGB CONC 29.8 g/dl (32.0-36.5); MEAN CORPUSCULAR VOLUME 103.9 fl (80.0-96.0); MONO # 1.1 10^3/uL (0.0-0.8); MONO % 13.4 % (2.0-8.0); NEUTROPHILS # 5.7 10^3/uL (1.5-8.5); NEUTROPHILS % 70.7 % (36.0-66.0); PLATELET COUNT, AUTOMATED 145 10^3/uL (150-450); WHITE BLOOD COUNT 8.1 10^3/uL (4.0-10.0)
[2022-12-02] MEDS ORDERED: PANTOPRAZOLE 40MG VIAL IV ONE (16:45)
[2022-12-02] MEDS: PANTOPRAZOLE SODIUM 40 MG in D5W 50 ML IV SCH ×2 (16:45→21:37)
[2022-12-02 16:47] LABS: ALBUMIN 2.9 G/DL (3.2-5.2); BILIRUBIN,DIRECT 0.3 MG/DL (<0.4); BILIRUBIN,TOTAL 0.5 MG/DL (0.3-1.2); CALCIUM LEVEL 8.3 MG/DL (8.3-10.6); GLOMERULAR FILTRATION RATE 34.9 (>42); POTASSIUM SERUM 4.4 MMOL/L (3.5-5.1); TOTAL PROTEIN 6.9 G/DL (5.7-8.2)
[2022-12-02 17:08] LABS: INR 1.23; PROTHROMBIN TIME 15.8 SECONDS (12.5-14.5)
[2022-12-02 17:11] LABS: MAGNESIUM LEVEL 1.7 MG/DL (1.8-2.4)
[2022-12-02] MEDS ORDERED: MAG SULF 1GM/100ML (MAG RUN) 1 GM in IV 1 EA IV ONE (17:15)
[2022-12-02 18:13] LABS: ABG BASE EXCESS -3.4 (-2.0-2.0); ABG O2 SATURATION 95.5 % (95.0-99.0); ABG PARTIAL PRESSURE O2 83.4 mmHg (75.0-100.0); ABG STANDARD HCO3 21.6 MEQ/L (22.0-26.0); ABG TOTAL CO2 22.1 MEQ/L (23.0-31.0); ABG pH (ARTERIAL) 7.396 UNITS (7.350-7.450)
[2022-12-02 18:14] LABS: RSV AMPLIFICATION NEGATIVE (NEGATIVE)
[2022-12-02] MEDS ORDERED: NS 500 ML IV ONE (21:10)
[2022-12-02 21:36] LABS: HEMATOCRIT 28.3 % (42.0-52.0); HEMOGLOBIN 8.6 g/dl (13.5-17.5)
[2022-12-02 22:08] VITALS: BP 99/54
[2022-12-02 22:28] VITALS: BP 86/55
[2022-12-02 22:32] VITALS: BP 104/55
[2022-12-02] MEDS ORDERED: GABA-1171 PO (23:40)
[2022-12-02] MEDS ORDERED: ACET-897 PO (23:40)
[2022-12-02] MEDS ORDERED: ALBU8.5H INH (23:40)
[2022-12-02] MEDS ORDERED: XARE20TA PO (23:40)
[2022-12-02] MEDS ORDERED: CIPR-249 PO (23:40)
[2022-12-02] MEDS ORDERED: SPIR1CAP INH (23:40)
[2022-12-02] MEDS ORDERED: LACT20EL PO (23:40)
[2022-12-02 23:41] VITALS: BP 108/54
[2022-12-02] MEDS ORDERED: HOME MED LIST COMPLETE! XX SCH (23:50)
[2022-12-03] MEDS ORDERED: CIPROFLOXACIN 400 MG in IV 1 EA IV SCH ×2
[2022-12-03] MEDS ORDERED: MIDODRINE 5 MG TAB PO ONE (00:20)
[2022-12-03] MEDS ORDERED: PANTOPRAZOLE 40MG VIAL As Ordered ONE (03:12)
[2022-12-03 05:14] VITALS: BP 124/59
[2022-12-03 05:43] LABS: HEMOGLOBIN 9.3 g/dl (13.5-17.5)
[2022-12-03 05:44] LABS: HEMATOCRIT 30.8 % (42.0-52.0)
[2022-12-03 07:53] LABS: BILIRUBIN,TOTAL 0.7 MG/DL (0.3-1.2); CALCIUM LEVEL 8.2 MG/DL (8.3-10.6); CREATININE FOR GFR 1.83 MG/DL (0.70-1.30); GLOMERULAR FILTRATION RATE 38.7 (>42); POTASSIUM SERUM 4.5 MMOL/L (3.5-5.1); TOTAL PROTEIN 6.9 G/DL (5.7-8.2)
[2022-12-03 08:00] VITALS: BP 105/59
[2022-12-03] MEDS ORDERED: PANTOPRAZOLE 40MG VIAL IV SCH (09:00)
[2022-12-03 10:44] LABS: HEMATOCRIT 31.5 % (42.0-52.0); HEMOGLOBIN 9.5 g/dl (13.5-17.5)
[2022-12-03] MEDS ORDERED: PANTOPRAZOLE 40MG TAB (PROTONIX) PO SCH (10:55)
[2022-12-03 12:00] VITALS: BP 112/64
[2022-12-03 15:40] LABS: HEMATOCRIT 32.1 % (42.0-52.0); HEMOGLOBIN 9.7 g/dl (13.5-17.5)
[2022-12-03 16:00] VITALS: BP 125/60
[2022-12-03] MEDS ORDERED: ALBUTEROL 90 MCG/ACT 8GM HFA INHALER INH PRN (17:25)
[2022-12-03] MEDS: CIPROFLOXACIN 500MG TABLET PO SCH (18:22)
[2022-12-03 20:00] VITALS: BP 113/59
[2022-12-03] MEDS: LACTULOSE 20GM/30ML SYRUP UDC PO SCH (20:41)
[2022-12-03] MEDS: GABAPENTIN 100 MG CAP PO SCH (20:41)
[2022-12-03] MEDS ORDERED: PRAVASTATIN 20 MG TAB PO SCH (21:00)
[2022-12-03] MEDS ORDERED: rOPINIRole 1MG TAB PO SCH (21:00)
[2022-12-03 21:06] LABS: HEMATOCRIT 32.4 % (42.0-52.0)
[2022-12-03 23:32] VITALS: BP 114/59
[2022-12-04 04:00] VITALS: BP 107/54
[2022-12-04 05:39] LABS: BASO # 0.1 10^3/uL (0.0-0.2); BASO % 0.7 % (0.0-1.0); EOS # 0.3 10^3/uL (0.0-0.5); EOS % 3.5 % (0.0-3.0); HEMATOCRIT 31.7 % (42.0-52.0); HEMOGLOBIN 9.9 g/dl (13.5-17.5); LYMPH # 0.8 10^3/uL (1.5-5.0); LYMPH % 9.8 % (24.0-44.0); MEAN CORPUSCULAR HEMOGLOBIN 31.5 pg (27.0-33.0); MEAN CORPUSCULAR HGB CONC 31.2 g/dl (32.0-36.5); MONO # 0.8 10^3/uL (0.0-0.8); NEUTROPHILS # 6.4 10^3/uL (1.5-8.5); NEUTROPHILS % 75.8 % (36.0-66.0); PLATELET COUNT, AUTOMATED 133 10^3/uL (150-450); RED BLOOD COUNT 3.14 10^6/uL (4.30-6.10); WHITE BLOOD COUNT 8.4 10^3/uL (4.0-10.0)
[2022-12-04] MEDS: GABAPENTIN 100 MG CAP PO SCH (06:06)
[2022-12-04] MEDS: CIPROFLOXACIN 500MG TABLET PO SCH (06:06)
[2022-12-04 06:36] LABS: ALBUMIN 2.9 G/DL (3.2-5.2); BILIRUBIN,TOTAL 0.8 MG/DL (0.3-1.2); CALCIUM LEVEL 8.8 MG/DL (8.3-10.6); CREATININE FOR GFR 1.65 MG/DL (0.70-1.30); GLOMERULAR FILTRATION RATE 43.6 (>42); MAGNESIUM LEVEL 1.8 MG/DL (1.8-2.4); POTASSIUM SERUM 4.7 MMOL/L (3.5-5.1); TOTAL PROTEIN 6.8 G/DL (5.7-8.2)
[2022-12-04 07:56] VITALS: BP 113/76
[2022-12-04] MEDS ORDERED: TIOTROPIUM INHALER/CAPSULE (SPIRIVA) INH SCH (08:00)
[2022-12-04] MEDS ORDERED: PANTOPRAZOLE 40MG TAB (PROTONIX) PO SCH (09:00)
[2022-12-04] MEDS ORDERED: TAMSULOSIN 0.4 MG CAP PO SCH (09:00)
[2022-12-04] MEDS ORDERED: FERROUS SULFATE 325MG TAB PO SCH (09:00)
[2022-12-04] MEDS ORDERED: PANT40TA29 PO (09:24)
[2022-12-04] MEDS: LACTULOSE 20GM/30ML SYRUP UDC PO SCH (09:31)
[2022-12-04] MEDS ORDERED: TORS10TA3 PO (10:04)
== END 2022-12-04 11:35 | disposition home health service (06) | DRG 433 ==
LOC: M ED 15:36 → M ED INP 22:39 → M PCU 12-03 04:51
PROVIDERS: ADMIT Internal Medicine; ATTEND Student in an Organized Health Care Education/Training Program
PROC: 30233N1 Transfusion of Nonautologous Red Blood Cells into Peripheral Vein, Percutaneous Approach (ICD-10-PCS; principal; 2022-12-02)
DX: K70.30 Alcoholic cirrhosis of liver without ascites (principal); K76.6 Portal hypertension; N17.9 Acute kidney failure, unspecified; I50.32 Chronic diastolic (congestive) heart failure; I13.0 Hypertensive heart and chronic kidney disease with heart failure and stage 1 through stage 4 chronic kidney disease, or unspecified chronic kidney disease; Z79.01 Long term (current) use of anticoagulants; I48.91 Unspecified atrial fibrillation; K31.89 Other diseases of stomach and duodenum; I27.81 Cor pulmonale (chronic); E78.00 Pure hypercholesterolemia, unspecified; E86.1 Hypovolemia; G25.81 Restless legs syndrome; I25.10 Atherosclerotic heart disease of native coronary artery without angina pectoris; Z95.1 Presence of aortocoronary bypass graft; G62.9 Polyneuropathy, unspecified; I73.9 Peripheral vascular disease, unspecified; F17.210 Nicotine dependence, cigarettes, uncomplicated; N18.31 Chronic kidney disease, stage 3a; K76.82 Hepatic encephalopathy; R31.9 Hematuria, unspecified; J84.10 Pulmonary fibrosis, unspecified; Z79.899 Other long term (current) drug therapy; Z88.0 Allergy status to penicillin; Z95.820 Peripheral vascular angioplasty status with implants and grafts

== ENCOUNTER → 2022-12-15 | Outpatient (CLI) | payer MEDICARE, BC, OTHER ==
[~2022-12-15] MED LIST changes: +GABA-1171 PO; +LACT20EL PO; +PANT40TA29 PO
[2022-12-15 12:55] LABS: BASO # 0.1 10^3/uL (0.0-0.2); BASO % 1.3 % (0.0-1.0); EOS # 0.5 10^3/uL (0.0-0.5); EOS % 6.9 % (0.0-3.0); HEMATOCRIT 34.9 % (42.0-52.0); HEMOGLOBIN 10.4 g/dl (13.5-17.5); LYMPH # 0.8 10^3/uL (1.5-5.0); LYMPH % 12.6 % (24.0-44.0); MEAN CORPUSCULAR HEMOGLOBIN 29.9 pg (27.0-33.0); MEAN CORPUSCULAR HGB CONC 29.8 g/dl (32.0-36.5); MEAN CORPUSCULAR VOLUME 100.3 fl (80.0-96.0); MONO # 0.6 10^3/uL (0.0-0.8); MONO % 9.1 % (2.0-8.0); NEUTROPHILS # 4.7 10^3/uL (1.5-8.5); NEUTROPHILS % 69.8 % (36.0-66.0); PLATELET COUNT, AUTOMATED 240 10^3/uL (150-450); RED BLOOD COUNT 3.48 10^6/uL (4.30-6.10); WHITE BLOOD COUNT 6.7 10^3/uL (4.0-10.0)
[2022-12-15 13:24] LABS: ALBUMIN 3.3 G/DL (3.2-5.2); ALKALINE PHOSPHATASE 308 U/L (46-116); ALT/SGPT 14 U/L (7.0-40); AST/SGOT 14 U/L (<34); BILIRUBIN,DIRECT 0.3 MG/DL (<0.4); BILIRUBIN,TOTAL 0.6 MG/DL (0.3-1.2); BLOOD UREA NITROGEN 26 MG/DL (9-23); CALCIUM LEVEL 9.5 MG/DL (8.3-10.6); CARBON DIOXIDE LEVEL 25 MMOL/L (20-31); CHLORIDE LEVEL 106 MMOL/L (98-107); GLOMERULAR FILTRATION RATE 57.4 (>42); GLUCOSE, FASTING 96 MG/DL (74-106); IRON (FE) 240 UG/DL (65-175); PERCENT SATURATION 57.6 % (19.7-50.0); POTASSIUM SERUM 4.9 MMOL/L (3.5-5.1); SODIUM LEVEL 137 MMOL/L (136-145); TOTAL IRON BINDING CAPACITY 417 UG/DL (250-425); TOTAL PROTEIN 7.5 G/DL (5.7-8.2)
[2022-12-15 13:31] LABS: INR 1.09; PROTHROMBIN TIME 14.3 SECONDS (12.5-14.5)
[2022-12-15 13:34] LABS: HEPATITIS B SURFACE ANTIGEN NEGATIVE (NEGATIVE)
[2022-12-15 13:55] LABS: HEPATITIS B CORE ANTIBODY IGM NEGATIVE (NEGATIVE)
== END ==
LOC: M WUC 08:56
PROVIDERS: ATTEND Internal Medicine Gastroenterology
DX: D64.9 Anemia, unspecified (principal); K74.60 Unspecified cirrhosis of liver

== ENCOUNTER → 2022-12-28 | Outpatient (REF) | payer MEDICARE, BC, OTHER ==
[2022-12-28 18:07] LABS: APPEARANCE, URINE CLEAR (CLEAR); BACTERIA, URINE AUTO NEGATIVE (NEGATIVE); BILIRUBIN, URINE AUTO NEGATIVE (NEGATIVE); BLOOD, URINE BLOOD 1+ (NEGATIVE); COLOR, URINE YELLOW (YELLOW); GLUCOSE, URINE (UA) AUTO NEGATIVE (NEGATIVE); KETONE, URINE AUTO NEGATIVE (NEGATIVE); LEUKOCYTE ESTERASE, URINE AUTO NEGATIVE (NEGATIVE); MUCUS, URINE SMALL (NEGATIVE); NITRITE, URINE AUTO NEGATIVE (NEGATIVE); PROTEIN, URINE AUTO NEGATIVE (NEGATIVE); RBC, URINE AUTO 1 /HPF (0-3); SQUAMOUS EPITHELIAL CELL UR AU 0 /HPF (0-6); UROBILINOGEN, URINE AUTO 0.2 mg/dL (0.0-2.0); WBC, URINE AUTO 0 /HPF (0-3)
== END ==
LOC: M SMT 17:23
PROVIDERS: ATTEND Urology
DX: R31.0 Gross hematuria (principal)

== ENCOUNTER → 2022-12-31 | Outpatient (CLI) | payer MEDICARE, BC ==
[2022-12-31 11:46] LABS: HEMATOCRIT 34.6 % (42.0-52.0); HEMOGLOBIN 10.6 g/dl (13.5-17.5); MEAN CORPUSCULAR HEMOGLOBIN 30.3 pg (27.0-33.0); MEAN CORPUSCULAR HGB CONC 30.6 g/dl (32.0-36.5); MEAN CORPUSCULAR VOLUME 98.9 fl (80.0-96.0); PLATELET COUNT, AUTOMATED 189 10^3/uL (150-450); WHITE BLOOD COUNT 7.6 10^3/uL (4.0-10.0)
== END ==
LOC: M WUC 08:47
PROVIDERS: ATTEND Physician Assistant
DX: I48.3 Typical atrial flutter (principal); Z79.01 Long term (current) use of anticoagulants

== ENCOUNTER → 2022-12-31 | Outpatient (CLI) | payer MEDICARE, BC ==
[2022-12-31 11:45] LABS: BASO # 0.1 10^3/uL (0.0-0.2); BASO % 0.8 % (0.0-1.0); EOS # 0.6 10^3/uL (0.0-0.5); EOS % 7.9 % (0.0-3.0); HEMATOCRIT 34.8 % (42.0-52.0); HEMOGLOBIN 10.7 g/dl (13.5-17.5); LYMPH # 0.9 10^3/uL (1.5-5.0); LYMPH % 11.6 % (24.0-44.0); MEAN CORPUSCULAR HEMOGLOBIN 30.3 pg (27.0-33.0); MEAN CORPUSCULAR HGB CONC 30.7 g/dl (32.0-36.5); MEAN CORPUSCULAR VOLUME 98.6 fl (80.0-96.0); MONO # 0.6 10^3/uL (0.0-0.8); MONO % 7.7 % (2.0-8.0); NEUTROPHILS # 5.5 10^3/uL (1.5-8.5); NEUTROPHILS % 71.5 % (36.0-66.0); PLATELET COUNT, AUTOMATED 186 10^3/uL (150-450); RED BLOOD COUNT 3.53 10^6/uL (4.30-6.10); WHITE BLOOD COUNT 7.7 10^3/uL (4.0-10.0)
[2022-12-31 12:07] LABS: ALBUMIN 3.5 G/DL (3.2-5.2); BILIRUBIN,TOTAL 0.8 MG/DL (0.3-1.2); CREATININE FOR GFR 1.38 MG/DL (0.70-1.30); FERRITIN 29.4 NG/ML (10.5-307.3); GLOMERULAR FILTRATION RATE 53.6 (>42); PERCENT SATURATION 67.3 % (19.7-50.0); TOTAL PROTEIN 7.6 G/DL (5.7-8.2)
[2022-12-31 12:08] LABS: TOTAL 25(OH) VITAMIN D 42.4 NG/ML (20.0-100.0)
[2022-12-31 13:23] LABS: FOLATE 11.64 NG/ML (>5.4)
== END ==
LOC: M WUC 08:52
PROVIDERS: ATTEND Physician Assistant
DX: D50.9 Iron deficiency anemia, unspecified (principal)

== ENCOUNTER → 2023-01-06 | Outpatient (CLI) | payer MEDICARE, BC, OTHER | LOC: M PLAIMG 11:13 | PROVIDERS: ATTEND Internal Medicine Pulmonary Disease | DX: R91.8 Other nonspecific abnormal finding of lung field (principal) ==

== ENCOUNTER → 2023-01-14 | Outpatient (CLI) | payer MEDICARE, BC, OTHER ==
[2023-01-14 18:07] LABS: HEMATOCRIT 32.3 % (42.0-52.0); HEMOGLOBIN 9.8 g/dl (13.5-17.5); MEAN CORPUSCULAR HEMOGLOBIN 30.5 pg (27.0-33.0); MEAN CORPUSCULAR HGB CONC 30.3 g/dl (32.0-36.5); MEAN CORPUSCULAR VOLUME 100.6 fl (80.0-96.0); PLATELET COUNT, AUTOMATED 167 10^3/uL (150-450); RED BLOOD COUNT 3.21 10^6/uL (4.30-6.10)
[2023-01-14 18:28] LABS: CALCIUM LEVEL 8.8 MG/DL (8.3-10.6); CREATININE FOR GFR 1.6 MG/DL (0.70-1.30); GLOMERULAR FILTRATION RATE 45.2 (>42); MAGNESIUM LEVEL 1.5 MG/DL (1.8-2.4); POTASSIUM SERUM 4.3 MMOL/L (3.5-5.1)
== END ==
LOC: M WUC 11:01
PROVIDERS: ATTEND Physician Assistant
DX: I50.32 Chronic diastolic (congestive) heart failure (principal); I48.3 Typical atrial flutter

== ENCOUNTER → 2023-01-21 | Outpatient (CLI) | payer MEDICARE, BC, OTHER ==
[2023-01-21 17:00] LABS: HEMATOCRIT 32.3 % (42.0-52.0); HEMOGLOBIN 9.8 g/dl (13.5-17.5); MEAN CORPUSCULAR HEMOGLOBIN 30.8 pg (27.0-33.0); MEAN CORPUSCULAR HGB CONC 30.3 g/dl (32.0-36.5); MEAN CORPUSCULAR VOLUME 101.6 fl (80.0-96.0); PLATELET COUNT, AUTOMATED 185 10^3/uL (150-450); RED BLOOD COUNT 3.18 10^6/uL (4.30-6.10); WHITE BLOOD COUNT 6.1 10^3/uL (4.0-10.0)
[2023-01-21 17:20] LABS: CALCIUM LEVEL 8.9 MG/DL (8.3-10.6); CREATININE FOR GFR 1.6 MG/DL (0.70-1.30); GLOMERULAR FILTRATION RATE 45.2 (>42); MAGNESIUM LEVEL 1.6 MG/DL (1.8-2.4); POTASSIUM SERUM 4.3 MMOL/L (3.5-5.1)
== END ==
LOC: M WUC 14:24
PROVIDERS: ATTEND Physician Assistant
DX: I50.32 Chronic diastolic (congestive) heart failure (principal); I48.3 Typical atrial flutter

== ENCOUNTER → 2023-02-09 | Outpatient (CLI) | payer MEDICARE, BC, OTHER ==
[2023-02-09 13:45] LABS: CREATININE FOR GFR 1.64 MG/DL (0.70-1.30); GLOMERULAR FILTRATION RATE 43.9 (>42); MAGNESIUM LEVEL 1.5 MG/DL (1.8-2.4); POTASSIUM SERUM 4.3 MMOL/L (3.5-5.1)
== END ==
LOC: M WUC 10:41
PROVIDERS: ATTEND Physician Assistant
DX: I50.32 Chronic diastolic (congestive) heart failure (principal)